=== PATIENT | male | born 1955 | race Caucasian/White ===

== ENCOUNTER 2016-09-25 13:23 | Inpatient (IN) | payer OTHER ==
--- NOTE | 2016-09-25 14:06 | PDOC ---
History of Present Illness - General Chief Complaint: Pain Stated Complaint: ABD PAIN History Source: Patient Exam Limitations: Language Barrier (used phone mortgage closing clerk ) - History of Present Illness Initial Comments: 09/25/16 16:03 This is a 61 yo M with PMH of IDDM x 8 yrs (on siding scale) and HLD, who presents due to recently elevated sugar and pain in feet. On friday patient measured his glucose to be 470, yestarday 370 and today 157 (his baseline). On fri he lost his appetite and developed mild nausea when trying to eat. He used 25 u x2 of insulin. He reports checking his sugar every day. He does not know his A1c and does not have a doctor. Today he developed pain in his feet and diffuse body aches. He has been constipated x 4d. He also complains of dysuria x 4 d. He had chills yesterday and has had a cough productive of yellow sputum x 2 d. He is normotensive and hemodynamically stable in ED but with rectal temp 100.9. He does not take any meds other than occasional insulin. Patient cant read. 09/25/16 16:10 Past History - Past Medical History Allergies/Adverse Reactions: Allergies Allergy/AdvReac Type Severity Reaction Status Date / Time No Known Allergies Allergy Verified 09/25/16 13:39 Home Medications: Ambulatory Orders Acyclovir [Zovirax -] 400 mg PO TID #42 capsule 07/03/14 Insulin Sliding Scale [Novolog Vial Sliding Scale -] 0 units SQ PRN 07/03/14 Prednisone [Deltasone -] 40 mg PO DAILY #14 tablet 07/03/14 Diabetes: Yes Hypercholesterolemia: Yes - Psycho/Social/Smoking Cessation Hx Anxiety: No Suicidal Ideation: No Smoking History: Never smoked Hx Alcohol Use: No Drug/Substance Use Hx: No Substance Use Type: None Review of Systems - Review of Systems Able to Perform ROS?: Yes Is the patient limited Citizen Of [place] proficient: Yes Constitutional: Yes: Weakness. No: Chills, Fever HEENTM: No: Nose Congestion, Throat Pain Respiratory: Yes: Cough, Shortness of Breath, Productive cough. No: Orthopnea, Stridor, Wheezing, Hemoptysis Cardiac (ROS): No: Chest Pain, Edema, Lightheadedness, Palpitations, Syncope ABD/GI: Yes: Constipated. No: Abdominal Distended, Diarrhea, Nausea, Rectal Bleeding, Vomiting, Abdominal cramping : Yes: Dysuria Musculoskeletal: Yes: Back Pain Integumentary: No: Bruising, Rash Neurological: No: Headache, Numbness, Paresthesia, Weakness Psychiatric: No: Anxiety, Depression Endocrine: No: Unexplained Weight Gain, Unexplained Weight Loss Hematologic/Lymphatic: No: Anemia, Blood Clots, Easy Bleeding, Easy Bruising *Physical Exam - Vital Signs Last Vital Signs Temp Pulse Resp BP Pulse Ox 97.7 F 120 H 20 128/73 96 09/25/16 13:34 09/25/16 13:34 09/25/16 13:34 09/25/16 13:34 09/25/16 13:34 - Physical Exam Comments: 09/25/16 16:13 GENERAL: NAD, AAOX3, CACHECTIC HEENT: NORMOCEPHALIC, ATRAUMATIC, PERRLA EOMI, NO SCLERAL ICTERUS, CONJUNCTIVA CLEAR PULM: RLL RALES GI: SOFT, NONTENDER, NONDISTENDED, NORMOACTIVE BOWEL SOUNDS, NO MASS NEURO: CRANIAL NERVES GROSSLY INTACT SKIN: NORMAL TURGOR EXTREMITIES: NO EDEMA, NO CALF TENDERNESS ED Treatment Course - LABORATORY CBC & Chemistry Diagram: 09/25/16 14:49 09/25/16 14:49 Medical Decision Making - Medical Decision Making 09/25/16 16:17 61 Yo M Insulin dependant diabetic who present with recent episode of hyperglycemia, fever and RLL ronchi wbc 32, alk phis 492, lft's wnl, creat wnl, slight hyponatremia/hypochloremia -CXR shows large masslike R suprahilar density with r sided effusion, possibly loculated -CT chest w contrast ordered 09/25/16 16:23 09/25/16 16:27 09/25/16 16:28 09/25/16 18:35 Cta chest shows large round walled off masses in R perihilar and lower lobe. Patient given empiric azithro, rocephin admitted to hospitalist *DC/Admit/Observation/Transfer Diagnosis at time of Disposition: Community acquired pneumonia - Discharge Dispostion Admit: Yes
[2016-09-25 14:57] LABS: MCH 25.6 pg (25.7-33.7); MCHC 32.6 g/dl (32.0-35.9); MEAN CELL VOLUME 78.6 fl (80-96); MEAN PLT VOLUME 7.3 fl (7.5-11.1); PLATELET COUNT 728 K/MM3 (134-434); RDW 13.2 % (11.9-15.9)
[2016-09-25 15:00] LABS: URINE APPEARANCE CLEAR; URINE BILIRUBIN NEGATIVE (NEGATIVE); URINE BLOOD NEGATIVE (NEGATIVE); URINE COLOR DKYELLOW; URINE GLUCOSE (UA) NEGATIVE (NEGATIVE); URINE KETONE 1+ (NEGATIVE); URINE LEUK ESTERASE NEGATIVE (NEGATIVE); URINE NITRITE NEGATIVE (NEGATIVE); URINE UROBILINOGEN NEGATIVE E.U./dl (0.2-1.0)
[2016-09-25 15:01] LABS: WHITE BLOOD COUNT 32.1 K/mm3 (4.0-10.0)
[2016-09-25 15:04] LABS: URINE PROTEIN 2+ (NEGATIVE)
[2016-09-25 15:06] LABS: URINE MUCUS FEW; URINE RBC 15 /hpf (0-3); URINE WBC 3 /hpf (3-5)
[2016-09-25 15:19] LABS: METAMYELOCYTE 1 % (0-2); PLATELET ESTIMATE INCREASED (NORMAL)
[2016-09-25 15:23] LABS: ALBUMIN 1.9 g/dl (3.4-5.0); ALK PHOS 492 U/L (45-117); ANION GAP 15 (8-16); BILIRUBIN,TOTAL 0.6 mg/dL (0.2-1.0); CALCIUM 8.4 mg/dL (8.5-10.1); CO2 25 mmol/L (21-32); COCKROFT - GAULT 88.93; CREATININE 0.7 mg/dL (0.7-1.3); GLUCOSE,RANDOM 96 mg/dL (74-106); SGOT/AST 37 U/L (15-37); SGPT/ALT 29 U/L (12-78); TOT PROT 7.4 g/dl (6.4-8.2)
--- NOTE | 2016-09-25 15:27 | PDOC ---
Attending Attestation - Resident Resident Name: Amber Lanier - ED Attending Attestation I have performed the following: I have examined & evaluated the patient, The case was reviewed & discussed with the resident, I agree w/resident's findings & plan - HPI HPI: 09/25/16 15:27 61y M hx of IDDM, presents with complaing of elevated blood sugar the past few days, running into the 3-400s. Pt notes that he has had decraesed appetite and some weight loss over the past few weeks. He endorses having ravi/cough for several days productive of some stputum but denies any fevers, although he was noted to have a low grade fever here in the ED. pt notes some body aches, The pt denies recent travel or known sick contacts, he lives with his kids. on exam camacho pt noted to have deminished sounds in the right base with some audible crackles. pts triage vitals noted for tachycardia to 120 pts cxr noted to have infiltrate, possible loculated effusion - awaiting CT chest pts albs noted for leukocytosis to 32. will start pt on abx and will likely admit for further management pending CT results 09/26/16 09:59 the pt was admitted to the hospitalist service last night for further management and evaluation by resident Yolande. - Physicial Exam PE: 09/26/16 09:59 see above - Medical Decision Making 09/26/16 09:59 see above
[2016-09-25] MEDS ORDERED: CEFTRIAXONE 1 GM in DEXTROSE 5%-WATER - 50 ML IVPB ONE (17:55)
[2016-09-25] MEDS ORDERED: AZITHROMYCIN IVPB 500 MG in DEXTROSE 5%-WATER - 250 ML IVPB ONE (17:55)
[2016-09-25] MEDS ORDERED: CEFTRIAXONE 50 ML ONE (18:11)
[2016-09-25] MEDS ORDERED: AZITHROMYCIN IVPB 250 ML IVPB ONE (18:11)
[2016-09-25] MEDS ORDERED: ACETAMINOPHEN 325 MG TABLET (FP) PO PRN (21:50)
--- NOTE | 2016-09-25 22:06 | HP ---
CHIEF COMPLAINT: cough PCP: None HISTORY OF PRESENT ILLNESS: This is a 61 year old male with a past medical history of IDDM and HLD who presented to the ED with c/o chills, productive cough x 3 weeks, night sweats, constipation x 4 days and dysuria x 4 days. Pt reports feeling a little better on exam. ER course was notable for: (1) WBC 32.1, Lactic acid 1.3 (2) ESR 110, CRP26.1 (3) Abnormal CT chest, see below Recent Travel: pt denies PAST MEDICAL HISTORY: IDDM- uses sliding scale insulin at home that he obtains from [place], does not require insulin every day HLD- denies home medications PAST SURGICAL HISTORY: pt denies Social History: Smoking: occasional cigarette Alcohol: pt deneis Drugs: pt denies Family History: mother alive and well father age 80, unknown multiple brothers and sisters all alive and well Allergies No Known Allergies Allergy (Verified 09/25/16 13:39) HOME MEDICATIONS: 3 Medication Instructions Recorded Insulin Sliding Scale [Novolog 0 units SQ PRN 07/03/14 Vial Sliding Scale -] REVIEW OF SYSTEMS CONSTITUTIONAL: Present: fever, chills, night sweats Absent: diaphoresis, generalized weakness, malaise, loss of appetite, weight change HEENT: Absent: rhinorrhea, nasal congestion, throat pain, throat swelling, difficulty swallowing, mouth swelling, ear pain, eye pain, visual changes CARDIOVASCULAR: Absent: chest pain, syncope, palpitations, irregular heart rate, lightheadedness , peripheral edema RESPIRATORY: Present: cough, shortness of breath Absent: dyspnea with exertion, orthopnea, wheezing, stridor, hemoptysis GASTROINTESTINAL: Present: constipation-reports stools are hard at times but last BM was yesterday. Absent: abdominal pain, abdominal distension, nausea, vomiting, diarrhea, melena , hematochezia GENITOURINARY: Present: dysuria Absent: frequency, urgency, hesitancy, hematuria, flank pain, genital pain MUSCULOSKELETAL: Absent: myalgia, arthralgia, joint swelling, back pain, neck pain SKIN: Absent: rash, itching, pallor HEMATOLOGIC/IMMUNOLOGIC: Absent: easy bleeding, easy bruising, lymphadenopathy, frequent infections ENDOCRINE: Absent: unexplained weight gain, unexplained weight loss, heat intolerance, cold intolerance NEUROLOGIC: Absent: headache, focal weakness or paresthesias, dizziness, unsteady gait, seizure, mental status changes, bladder or bowel incontinence PSYCHIATRIC: Absent: anxiety, depression, suicidal or homicidal ideation, hallucinations. PHYSICAL EXAMINATION Vital Signs - 24 hr 3 09/25/16 09/25/16 18:42 20:34 Temperature 98 F Pulse Rate [ 102 H 93 H Apical] Respiratory 16 18 Rate Blood Pressure 125/89 118/68 [Right] O2 Sat by Pulse 96 94 L Oximetry (%) GENERAL: Awake, alert, and fully oriented, in no acute distress. HEAD: Normal with no signs of trauma. EYES: Pupils equal, round and reactive to light, extraocular movements intact, sclera anicteric, conjunctiva clear. No lid lag. EARS, NOSE, THROAT: Ears normal, nares patent, oropharynx clear without exudates. Moist mucous membranes. NECK: Normal range of motion, supple without lymphadenopathy, JVD, or masses. LUNGS: No wheezes, and no rhonchi. No accessory muscle use. Bronchial breath sounds and crackles RLL HEART: Regular rate and rhythm, normal S1 and S2 without murmur, rub or gallop. ABDOMEN: Soft, nontender, not distended, normoactive bowel sounds, no guarding, no rebound, no masses. No hepatomegaly or splenomegaly. MUSCULOSKELETAL: Normal range of motion at all joints. No bony deformities or tenderness. No CVA tenderness. UPPER EXTREMITIES: 2+ pulses, warm, well-perfused. No cyanosis. No clubbing. No peripheral edema. LOWER EXTREMITIES: 2+ pulses, warm, well-perfused. No calf tenderness. No peripheral edema. NEUROLOGICAL: Cranial nerves II-XII intact. Normal speech. Normal gait. PSYCHIATRIC: Cooperative. Good eye contact. Appropriate mood and affect. SKIN: Warm, dry, normal turgor, no rashes or lesions noted, normal capillary refill. Imaging: CHEST X-RAY PORTABLE* Cough, shortness of breath. Single portable chest. The left lung is clear - no evidence of left pleural effusion, or pneumothorax. The cardiac silhouette is not enlarged. Unremarkable contour of the thoracic aorta. No evidence of widening of the superior mediastinum. Masslike opacity noted in the right suprahilar region. Moderate degree of right pleural effusion concerning for loculated effusion. Intact visualized osseous structures. CT chest recommended CT/CHEST CT WITH CONTRAST Evaluate for a right side mass. Please also evaluate right upper abdomen CT scan of the chest following intravenous contrast Coronal and sagittal reformatted images were submitted for evaluation. 70 cc of Omnipaque 350 was intravenously injected. Compared to prior chest x-ray dated 09/25/2016. No prior CT scan of the chest available comparison. Included lower neck appears unremarkable. The heart is within normal limits in size. There are a few paratracheal lymph nodes measuring up to 1.3 x 0.9 cm. Largest precarinal lymph node measures approximately 1.5 x 0.8 cm. A right hilar lymph node is present measuring approximately 1.8 x 2 cm. No gross left hilar lymph node is identified. There is a large likely loculated right pleural effusion. Consolidation/atelectasis in the right lower lobe. There are patchy pneumonic infiltrates in the right upper lobe, posteriorly laterally. Focal pleural-based masslike density in the right middle lobe, anteriorly measuring 3 x 1.1 cm in size and 13 Hounsfield units likely representing a small loculated pleural effusion, as well. The left lung is clear. There is no CT evidence of an acute process in included portion of the upper abdomen. Visualized osseous structures appear intact with mild degenerative changes and anterior spondylosis in the thoracic spine. No enlarged axillary lymph nodes are identified. Impression: Large loculated right pleural effusion with consolidation/ atelectasis in the right lower lobe as well as a patchy pneumonic infiltrates in the right upper lobe. There is also likely a small loculated pleural-based pleural effusion in the right middle lobe, anteriorly. Enlarged mediastinal and right hilar lymph nodes, as described above. Small pericardial effusion mainly along right lateral margin of the heart. Further evaluation and follow-up is recommended Case discussed with Dr. Cota, emergency room caring attending physician ASSESSMENT/PLAN: 61yM with PMH DM, HLD who presented with multiple complaints: dysuria, constipation, fever, chills, night sweats and cough x 3 weeks. He is being admitted for further diagnostic testing and treatment. Sepsis due to Community Acquired PNA r/o TB - cont ceftriaxone and zithromax - AFB x 3 and quantiferon gold ordered given RUL infiltrates and night sweats - NS @ 83cc/hr for now - airborne isolation - ID consult Pericardial effusion - as seen on CT, will obtain Echo DM - is on sliding scale insulin only at home, receives his insulin from [facility]. - cont FSBS and Sliding scale - A1C in am Dysuria - u/a not c/w UTI - feeling better in ED, cont to monitor HLD - denies home medications other than insulin - lipid panel in AM DVT PPX - heparin 5000u TID FEN - NS @ 83cc/hr - repeat labs in am - diabetic diet Dispo: Pt currently requires inpatient management of his emergent condition and expected LOS is greater than 2 MN. Visit type - Emergency Visit Emergency Visit: Yes ED Registration Date: 09/25/16 Care time: The patient presented to the Emergency Department on the above date and was hospitalized for further evaluation of their emergent condition. - New Patient This patient is new to me today: Yes Date on this admission: 09/25/16 - Critical Care Critical Care patient: No
[2016-09-25 22:10] LABS: HIV 1 & 2 AB NEGATIVE; HIV 1 AGp24 NEGATIVE
[2016-09-25] MEDS: INSULIN SLIDING SCALE (NOVOLOG) 1 VIAL SQ SCH (22:55)
[2016-09-25] MEDS: HEPARIN NA (PORCINE) 5,000 UNITS/ML 1ML VIAL SQ SCH (23:00)
[2016-09-25] MEDS: SODIUM CHLORIDE 1,000 ML IV SCH (23:05)
[2016-09-26 00:12] VITALS: BMI 20.5
[2016-09-26] MEDS: HEPARIN NA (PORCINE) 5,000 UNITS/ML 1ML VIAL SQ SCH (06:38)
[2016-09-26] MEDS: INSULIN SLIDING SCALE (NOVOLOG) 1 VIAL SQ SCH ×4 (06:39→21:35)
[2016-09-26 07:31] LABS: MCH 26.8 pg (25.7-33.7); MCHC 34.1 g/dl (32.0-35.9); MEAN CELL VOLUME 78.6 fl (80-96); MEAN PLT VOLUME 6.8 fl (7.5-11.1); PLATELET COUNT 649 K/MM3 (134-434); RDW 13.2 % (11.9-15.9)
[2016-09-26 07:55] LABS: CALCIUM 8.1 mg/dL (8.5-10.1); COCKROFT - GAULT 86.97; CREATININE 0.7 mg/dL (0.7-1.3)
--- NOTE | 2016-09-26 08:16 | PN ---
Progress Note, Physician Chief Complaint: ID This 61 year old [place] man is admitted with a 2 month history of pleuritic chest pain nonproductive couph fevers and night sweats. He has been losing weight and has poor appetite. He is a [place] immigrant who came here permanently in 2006. 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 His is back in [place]. He rarely smoked in the past and does not drink or use drugs. His HIV test is negative now. He has no history of PPD testing or does not remember. He is an insulin dependent diabetic but has sporadic medical follow up. He has HPTN but takes no meds for some time. CT scan here with infiltrate and loculated effusion. He has not been on antibiotics at all. - Current Medication List Current Medications: Active Medications Acetaminophen (Tylenol -) 650 mg PO Q4H PRN PRN Reason: FEVER OR PAIN Heparin Sodium (Porcine) (Heparin -) 5,000 unit SQ TID [facility] Last Admin: 09/26/16 06:38 Dose: 5,000 unit Sodium Chloride (Normal Saline -) 1,000 mls @ 83 mls/hr IV ASDIR [facility] Last Admin: 09/25/16 23:05 Dose: 83 mls/hr Azithromycin (Zithromax 500mg Ivpb (Pre-Docked)) 250 mls @ 250 mls/hr IVPB DAILY [facility] Ceftriaxone Sodium (Rocephin 1gm Ivpb (Pre-Docked)) 50 mls @ 100 mls/hr IVPB DAILY [facility] Insulin Aspart (Novolog Vial Sliding Scale -) 0 vial SQ ACHS BUTCH PRN Reason: Protocol Last Admin: 09/26/16 06:39 Dose: Not Given - Objective Vital Signs: Vital Signs Temperature 98.5 F 09/26/16 06:30 Pulse Rate 103 H 09/26/16 06:30 Respiratory Rate 20 09/26/16 06:30 Blood Pressure 121/69 09/26/16 06:30 O2 Sat by Pulse Oximetry (%) 94 L 09/25/16 20:34 Constitutional: Yes: Diaphoresis Eyes: Yes: WNL, Conjunctiva Clear HENT: Yes: Other (Dentition necrotic teeth) Neck: Yes: WNL, Supple. No: Lymphadenopathy Cardiovascular: Yes: Regular Rate and Rhythm, S1, S2. No: Murmur Respiratory: Yes: WNL, Regular, CTA Bilaterally, Diminished, Rales Gastrointestinal: Yes: Soft, Tenderness, Other (MIld RUQ tenderness) Extremities: No: Cold, Cool, Cyanosis Edema: No Labs: CBC, BMP 09/26/16 06:45 09/26/16 06:45 Assessment/Plan Microbiology Laboratory Tests 09/25/16 09/25/16 09/25/16 14:49 14:49 16:30 WBC 32.1 H* Hgb 12.1 Hct 37.2 Plt Count 728 H MPV 7.3 L Neutrophils % 90.0 H Monocytes % 4.0 ESR BUN 13 Creat Clearance w eGFR > 60 Total Bilirubin 0.6 AST 37 ALT 29 C-Reactive Protein 26.1 H Total Protein 7.4 Albumin 1.9 L HIV 1&2 Antibody Screen HIV P24 Antigen 09/25/16 09/25/16 16:30 20:31 WBC Hgb Hct Plt Count MPV Neutrophils % Monocytes % ESR 110 H BUN Creat Clearance w eGFR Total Bilirubin AST ALT C-Reactive Protein Total Protein Albumin HIV 1&2 Antibody Screen Negative HIV P24 Antigen Negative Assessment Most likely this 61 year old diabetic male has been ill for 3 months. He has a loculated effusion with pneumonia and the possibility of empyema is high. Especially note leukocytosis and thrombocytosis with acute phase reactants. Bacteria but tuberculosis and histoplasmosis has to be considered. His teeth are in poor repair and that raises ? anaerobic infection though no foul breath noted. Plan Mainly he needs surgical drainage either by IR or thoracotomy with appropriate cultures c/s AFB fungus Vanco Ertepenem Quant gold Isolation AFB Histo antigen Thoracic surgery evaluation IR consideration for empyema LGA Strep pneumo Ag Suzy SHEFFIELD
--- NOTE | 2016-09-26 08:34 | PN ---
Progress Note, Physician - Current Medication List Current Medications: Active Medications Acetaminophen (Tylenol -) 650 mg PO Q4H PRN PRN Reason: FEVER OR PAIN Heparin Sodium (Porcine) (Heparin -) 5,000 unit SQ TID [facility] Last Admin: 09/26/16 06:38 Dose: 5,000 unit Sodium Chloride (Normal Saline -) 1,000 mls @ 83 mls/hr IV ASDIR [facility] Last Admin: 09/25/16 23:05 Dose: 83 mls/hr Vancomycin HCl (Vancomycin (Pre-Docked)) 250 mls @ 166.667 mls/hr IVPB DAILY [facility] PRN Reason: Protocol Ertapenem 1 gm/ Sodium (Chloride) 50 mls @ 100 mls/hr IVPB DAILY BUTCH PRN Reason: Protocol Insulin Aspart (Novolog Vial Sliding Scale -) 0 vial SQ ACHS BUTCH PRN Reason: Protocol Last Admin: 09/26/16 06:39 Dose: Not Given - Objective Vital Signs: Vital Signs Temperature 98.5 F 09/26/16 06:30 Pulse Rate 103 H 09/26/16 06:30 Respiratory Rate 20 09/26/16 06:30 Blood Pressure 121/69 09/26/16 06:30 O2 Sat by Pulse Oximetry (%) 94 L 09/25/16 20:34 Labs: CBC, BMP 09/26/16 06:45 09/26/16 06:45 Problem List - Problems (1) Empyema Code(s): J86.9 - PYOTHORAX WITHOUT FISTULA (2) Pneumonia Code(s): J18.9 - PNEUMONIA, UNSPECIFIED ORGANISM
[2016-09-26 09:25] LABS: INR 1.48 (0.82-1.09); PROTHROMBIN TIME (PATIENT) 16.4 SEC (9.98-11.88)
[2016-09-26 09:35] LABS: PLATELET ESTIMATE INCREASED (NORMAL)
[2016-09-26] MEDS ORDERED: CEFTRIAXONE 50 ML IVPB SCH (10:00)
[2016-09-26] MEDS ORDERED: AZITHROMYCIN IVPB 250 ML IVPB SCH (10:00)
[2016-09-26] MEDS: ERTAPENEM SODIUM 1 GM in SODIUM CHLORIDE 50 ML IVPB SCH (10:33)
--- NOTE | 2016-09-26 10:35 | CON.PULM ---
Consult Consult Specialty:: PULMONARY Referred by:: ISSAC Bishop Reason for Consultation:: pleural effusion/pneumonia - History of Present Illness Chief Complaint: hyperglycemia History of Present Illness: 61yo male from [place] with h/o DM, hyperlipidemia who presented with hyperglycemia and foot pain. Reports subjective fevers measured 100.9 in the ER. Mild cough productive of yellow sputum. He does report some chest discomfort on right side worse with deep inspiration. Noted to have loculated right sided effusions on CXR, chest CT. 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 - History Source History Provided By: Patient, Medical Record Limitations to Obtaining History: Language Barrier - Past Medical History Cardio/Vascular: Yes: Hyperlipdemia Endocrine: Yes: Diabetes Mellitus - Alcohol/Substance Use Hx Alcohol Use: No - Smoking History Smoking history: Never smoked Home Medications - Allergies Allergies/Adverse Reactions: Allergies Allergy/AdvReac Type Severity Reaction Status Date / Time No Known Allergies Allergy Verified 09/25/16 13:39 - Home Medications Home Medications: Ambulatory Orders Insulin Sliding Scale [Novolog Vial Sliding Scale -] 0 units SQ PRN 07/03/14 Review of Systems - Review of Systems Constitutional: reports: Fever, Night Sweats Eyes: denies: Recent Change in Vision HENT: denies: Nasal Congestion, Throat Pain Neck: denies: Stiffness, Tenderness Cardiovascular: reports: Chest Pain. denies: Shortness of Breath Respiratory: reports: Cough. denies: SOB, SOB on Exertion Gastrointestinal: denies: Abdominal Pain, Nausea, Vomiting Genitourinary: denies: Dysuria, Hematuria Neurological: denies: Dizziness, Headache Endocrine: reports: Unexplained Weight Loss Physical Exam Vital Sings: Vital Signs Temperature 98.5 F 09/26/16 06:30 Pulse Rate 103 H 09/26/16 06:30 Respiratory Rate 20 09/26/16 06:30 Blood Pressure 121/69 09/26/16 06:30 O2 Sat by Pulse Oximetry (%) 94 L 09/25/16 20:34 Constitutional: Yes: Calm, Diaphoresis Eyes: Yes: Conjunctiva Clear, EOM Intact HENT: Yes: Atraumatic, Normocephalic Neck: Yes: Supple, Trachea Midline Cardiovascular: Yes: Regular Rate and Rhythm Respiratory: Yes: Diminished (right base), Rales (right base) ...Clubbing: No Gastrointestinal: Yes: Normal Bowel Sounds, Soft. No: Tenderness Edema: No Labs: CBC, BMP 09/26/16 06:45 09/26/16 06:45 Imaging - Results Chest X-ray: Report Reviewed, Image Reviewed Cat Scan: Report Reviewed, Image Reviewed (loculated right effusions, right infiltrate) Problem List - Problems (1) Pneumonia Code(s): J18.9 - PNEUMONIA, UNSPECIFIED ORGANISM (2) Pleural effusion Code(s): J90 - PLEURAL EFFUSION, NOT ELSEWHERE CLASSIFIED (3) Diabetes Code(s): E11.9 - TYPE 2 DIABETES MELLITUS WITHOUT COMPLICATIONS Assessment/Plan Pneumonia Loculated Pleural Effusions r/o TB r/o Empyema DM - agree with antibiotics per ID - f/u cultures - PPD, quantiferon gold, sputum for AFB - agree with ultrasound guided diagnostic thoracentesis but will likely need R VATS - O2 as needed - DVT prophylaxis Thank you for this consult Efren Elliott MD
--- NOTE | 2016-09-26 11:31 | PN ---
Physical Exam: SUBJECTIVE: Patient seen and examined at bedside. OBJECTIVE: Vital Signs Period Temp Pulse Resp BP Sys/Basurto Pulse Ox Last 24 Hr 98 F-98.8 F 93-103 16-20 111-125/68-89 94-96 GENERAL: The patient is awake, alert, and fully oriented, in no acute distress. Thin. HEAD: Normal with no signs of trauma. EYES: PERRL, extraocular movements intact, sclera anicteric, conjunctiva clear. No ptosis. LUNGS: Diminished sounds on right particularly right base; HEART: Regular rate and rhythm, S1, S2 without murmur, rub or gallop. ABDOMEN: Soft, nontender, nondistended, normoactive bowel sounds, no guarding, no rebound, no hepatosplenomegaly, no masses. EXTREMITIES: 2+ pulses, warm, well-perfused, no edema. NEUROLOGICAL: Cranial nerves II through XII grossly intact. Normal speech, gait not observed. Laboratory Results - last 24 hr 09/25/16 09/26/16 09/26/16 20:31 01:40 05:54 WBC RBC Hgb Hct MCV MCHC RDW Plt Count MPV Neutrophils % Lymphocytes % Monocytes % Differential Comment Platelet Estimate INR Sodium Potassium Chloride Carbon Dioxide Anion Gap BUN Creatinine POC Glucometer 170 91 Random Glucose Hemoglobin A1c % Calcium Magnesium Triglycerides Cholesterol Total LDL Cholesterol HDL Cholesterol HIV 1&2 Antibody Screen Negative HIV P24 Antigen Negative 09/26/16 09/26/16 09/26/16 06:45 06:45 06:45 WBC 26.0 H RBC 4.27 Hgb 11.4 L Hct 33.5 L MCV 78.6 L MCHC 34.1 RDW 13.2 Plt Count 649 H MPV 6.8 L Neutrophils % 94.0 H Lymphocytes % 5.0 L D Monocytes % 1.0 L Differential Comment Manual diff done Platelet Estimate Increased INR Sodium 132 L Potassium 3.7 Chloride 95 L Carbon Dioxide 27 Anion Gap 10 BUN 14 Creatinine 0.7 POC Glucometer Random Glucose 81 Hemoglobin A1c % 11.4 H Calcium 8.1 L Magnesium 2.0 Triglycerides 77 Cholesterol 96 Total LDL Cholesterol 67 HDL Cholesterol 24 L HIV 1&2 Antibody Screen HIV P24 Antigen 09/26/16 09/26/16 06:45 08:40 WBC RBC Hgb Hct MCV MCHC RDW Plt Count MPV Neutrophils % Lymphocytes % Monocytes % Differential Comment Platelet Estimate INR 1.48 H Sodium Potassium Chloride Carbon Dioxide Anion Gap BUN Creatinine POC Glucometer Random Glucose Hemoglobin A1c % Calcium Magnesium Triglycerides Cancelled Cholesterol Cancelled Total LDL Cholesterol Cancelled HDL Cholesterol Cancelled HIV 1&2 Antibody Screen HIV P24 Antigen Active Medications Generic Name Dose Route Start Last Admin Trade Name Najma PRN Reason Stop Dose Admin Acetaminophen 650 mg 09/25/16 21:50 Tylenol - PO Q4H PRN FEVER OR PAIN Sodium Chloride 1,000 mls @ 83 mls/hr 09/25/16 22:00 09/25/16 23:05 Normal Saline - IV 83 mls/hr ASDIR BUTCH Administration Vancomycin HCl 250 mls @ 166.667 mls/hr 09/26/16 10:00 Vancomycin (Pre-Docked) IVPB DAILY BUTCH Protocol Ertapenem 1 gm/ Sodium 50 mls @ 100 mls/hr 09/26/16 10:00 09/26/16 10:33 Chloride IVPB 100 mls/hr DAILY BUTCH Administration Protocol Insulin Aspart 0 vial 09/25/16 22:00 09/26/16 06:39 Novolog Vial Sliding Scale - SQ Not Given ACHS BUTCH Protocol Imaging 09/25 CXR: masslike opacity right suprahilar region; moderate right pleural effusion concerning for loculated effusion 09/25 CT chest: large loculated right pleural effusion with consolidation/ atelectasis in RLL; patchy infiltrate RUL; small loculated pleural effusion RML ; enlarged mediastinal and right hilar lymph nodes; small pericardial effusion ASSESSMENT/PLAN 61 year-old man from [place] since 2006 (no recent travel) with a PMH of HLD and IDDM, presents with subjective fever, cough, and night sweats x several weeks, weight loss x several months. Admitted for sepsis secondary to CAP. Sepsis secondary to community-acquired pneumonia --febrile to 100.9, tachycardic to 109, WBC 31k; hemodynamically stable --loculated pleural effusions --seen by ID, empiric Vanc (day #1) and Ertapenem (day #1) --cultures, TB Gold, histoplasma Ag-urine, AFB x 3 pending --CTAP pending to r/o subdiaphragmatic process or liver abscesses --CT consult pending for Dr. Hsieh for possible chest tube v. VATS Small pericardial effusion --Echo done, pending read --cardiology consult requested Dr. Beasley NIDDM --Novolog sliding scale coverage F/E/N Fluids: NS @ 150mL/hr Electrolytes: replete as indicated Nutrition: diabetic diet DVT prophylaxis: hold chemical prophylaxis due to possible surgical interventions; SCDs Dispo: continues to require inpatient care. Full Code. Visit type - Emergency Visit Emergency Visit: Yes ED Registration Date: 09/25/16 Care time: The patient presented to the Emergency Department on the above date and was hospitalized for further evaluation of their emergent condition. - New Patient This patient is new to me today: Yes Date on this admission: 09/26/16 - Critical Care Critical Care patient: No
[2016-09-26] MEDS: VANCOMYCIN 1 GRAM (PRE-DOCKED) 250 ML IVPB SCH (11:41)
[2016-09-26] MEDS: SODIUM CHLORIDE 1,000 ML IV SCH (11:46)
[2016-09-26 13:32] LABS: PLEURAL FLUID SOURCE PLEURAL FLUID
[2016-09-26 13:34] LABS: PLEURAL FLUID APPEARANCE MILKY
[2016-09-26 13:40] LABS: TOTAL PROTEIN,PLEURAL FLUID 2.722
[2016-09-26 14:00] LABS: GLUCOSE,PLEURAL FLUID 8
[2016-09-26 14:01] LABS: CHLORIDE PLEURAL FLUID 88
[2016-09-26 15:23] LABS: PLEURAL FLUID LYMPHOCYTES 1 %; PLEURAL FLUID NEUTROPHIL 99 %
--- NOTE | 2016-09-26 15:49 | CONSULT ---
Consult - text type - Consultation Consultation Note: Thoracic Consultation: 61M with DM, non-smoker, with 2 month h/o cough, weight loss (unclear how much but clothes looser), and more recent fevers and hyperglycemia. 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 CT suggested empyema. Drain done today suggest empyema but not high PMNs, despite appearing as pus. Recommend: CT to suction for now, await microbiology as TB in differential, daily CXR, if not TB, will do VATS decort on Friday (if ID and Pulm agree not TB ). I have spent ~40 minutes on this consultation including history, physical, review of images, with over half of this time in counseling with patient (in [place]) and coordination of care with Dr. Elliott and Dr. Galan.
--- NOTE | 2016-09-26 16:29 | CON.CARD ---
Consult Consult Specialty:: cardiology Referred by:: cade Reason for Consultation:: pericardial effusion - History of Present Illness Chief Complaint: Fever History of Present Illness: 61yo male from [place] with h/o DM, hyperlipidemia who presented with hyperglycemia and foot pain. Reports subjective fevers measured 100.9 in the ER. Mild cough productive of yellow sputum. Noted to have loculated right sided effusions on CXR, chest CT with complaint of some right sided chest pain with cough. He was a former occasional smoker CT scan with loculated effusion and small pericardial effusion. Elevated WBC . - History Source History Provided By: Patient, Medical Record - Past Medical History Cardio/Vascular: Yes: Hyperlipdemia Endocrine: Yes: Diabetes Mellitus - Alcohol/Substance Use Hx Alcohol Use: No - Smoking History Smoking history: Never smoked Home Medications - Allergies Allergies/Adverse Reactions: Allergies Allergy/AdvReac Type Severity Reaction Status Date / Time No Known Allergies Allergy Verified 09/25/16 13:39 - Home Medications Home Medications: Ambulatory Orders Insulin Sliding Scale [Novolog Vial Sliding Scale -] 0 units SQ PRN 07/03/14 Vital Signs: Vital Signs Temperature 98.2 F 09/26/16 14:57 Pulse Rate 94 H 09/26/16 14:57 Respiratory Rate 16 09/26/16 14:57 Blood Pressure 112/66 09/26/16 14:57 O2 Sat by Pulse Oximetry (%) 95 09/26/16 09:00 Constitutional: Yes: No Distress Respiratory: Yes: Diminished (r base) Gastrointestinal: Yes: Normal Bowel Sounds, Soft Cardiovascular: Yes: Regular Rate and Rhythm JVD: No Carotid Bruit: No Heart Sounds: Yes: S1, S2 Murmur: No: Systolic Murmur Edema: No - Other Data Labs, Other Data: CBC, BMP 09/26/16 06:45 09/26/16 06:45 INR, PTT INR 1.48 (0.82-1.09) H 09/26/16 08:40 Imaging - Results Chest X-ray: Report Reviewed Cat Scan: Report Reviewed Assessment/Plan 61yo male from [place] with h/o DM, hyperlipidemia who presented with hyperglycemia and foot pain. Reports subjective fevers measured 100.9 in the ER. Mild cough productive of yellow sputum. Noted to have loculated right sided effusions on CXR, chest CT with complaint of some right sided chest pain with cough. He was a former occasional smoker CT scan with loculated effusion and small pericardial effusion. Elevated WBC 1) Pericardial effusion -Echocardiogram today with no signs of pericardial effusion and otherwise unremarkable. No signs of jvd and unremarkable cardiac physical exam. Normal blood pressure with no hypotension -Treat underlying pulmonary and infectious issues and r/o TB Please call back if any other questions or clinical changes.
[2016-09-26] MEDS ORDERED: INSULIN (NOVOLOG) ASPART 100 UNITS/ML 10ML VIAL ONE (18:13)
[2016-09-27] MEDS: SODIUM CHLORIDE 1,000 ML IV SCH ×2 (04:00→17:37)
[2016-09-27] MEDS: INSULIN SLIDING SCALE (NOVOLOG) 1 VIAL SQ SCH ×4 (06:25→21:13)
--- NOTE | 2016-09-27 09:47 | PN ---
Progress Note (short form) - Note Progress Note: Pt with complaints of pain at right pigtail catheter site. No SOB. Vital Signs Period Temp Pulse Resp BP Sys/Basurto Pulse Ox Last 24 Hr 97.8 F-98.8 F 83-97 16-22 102-118/66-74 96 PE: GEN: Appears comfortable Right chest: No air leak noted. outpt level at 400 with think purulent drainage. CBC, BMP 09/26/16 06:45 09/26/16 06:45 A/p: 61 yo male with improved fevers and WBC s/p Right pigtail catheter for drainage of effusion. Appears purulent. Ordered daily portable CXR Continue CT to [facility] Follow CBC(ordered) for today and 09/28 Iv abx Vanco/Ertapenem as per ID Awaiting micro results for AFB/gram stain/fungal For possible OR/Vats on Friday pending TB results
--- NOTE | 2016-09-27 10:50 | PN ---
Progress Note (short form) - Note Progress Note: NAD alert chest tube in place with purulent drainage Vital Signs Period Temp Pulse Resp BP Sys/Basurto Pulse Ox Last 24 Hr 97.8 F-98.8 F 83-97 16-22 102-118/66-74 96 cor-rrr lungs decreased bs on left +left chest tube abd soft, ext no edema CBC, BMP 09/26/16 06:45 09/26/16 06:45 pleural fluid gram stain with many pmns and GPC chains cultures pending Microbiology 09/25/16 15:15 Urine - Urine Clean Catch Urine Culture - Final 09/26/16 06:45 Blood - Peripheral Venous TB Test (QFT) ([facility]) - Preliminary 09/26/16 12:30 Pleural Fluid AFB Smear Concentration - Preliminary 09/26/16 12:30 Pleural Fluid Mycobacterial Culture - Preliminary 09/26/16 10:47 Sputum - Expectorated AFB Smear Concentration - Preliminary 09/26/16 10:47 Sputum - Expectorated Mycobacterial Culture - Preliminary 09/25/16 16:35 Blood - Peripheral Venous Blood Culture - Preliminary NO GROWTH OBTAINED AFTER 24 HOURS, INCUBATION TO CONTINUE FOR 4 DAYS. 09/25/16 16:35 Blood - Peripheral Venous Blood Culture - Preliminary NO GROWTH OBTAINED AFTER 24 HOURS, INCUBATION TO CONTINUE FOR 4 DAYS. 09/26/16 12:30 Pleural Fluid Gram Stain - Final 09/26/16 12:30 Pleural Fluid LINDA Preparation - Preliminary 09/26/16 12:30 Pleural Fluid Fungal Culture - Preliminary HIV negative Current Medications Acetaminophen (Tylenol -) 650 mg PO Q4H PRN PRN Reason: FEVER OR PAIN Sodium Chloride (Normal Saline -) 1,000 mls @ 83 mls/hr IV ASDIR BUTCH Last Admin: 09/27/16 04:00 Dose: 83 mls/hr Vancomycin HCl (Vancomycin (Pre-Docked)) 250 mls @ 166.667 mls/hr IVPB DAILY BUTCH PRN Reason: Protocol Last Admin: 09/26/16 11:41 Dose: 166.667 mls/hr Ertapenem 1 gm/ Sodium (Chloride) 50 mls @ 100 mls/hr IVPB DAILY BUTCH PRN Reason: Protocol Last Admin: 09/26/16 10:33 Dose: 100 mls/hr Insulin Aspart (Novolog Vial Sliding Scale -) 0 vial SQ ACHS BUTCH PRN Reason: Protocol Last Admin: 09/27/16 06:25 Dose: Not Given a/p empyema- awaiting sputum afb and quant gold continue vanco/ertapenem day #2 f/u cultures History of diabetes
[2016-09-27 10:52] LABS: BASOPHIL 0.8 % (0-2.0); EOSINOPHIL 0.3 % (0-4.5); MCH 26.2 pg (25.7-33.7); MCHC 33.4 g/dl (32.0-35.9); MEAN CELL VOLUME 78.4 fl (80-96); MEAN PLT VOLUME 6.5 fl (7.5-11.1); NEUTROPHILS 86.6 % (42.8-82.8); PLATELET COUNT 646 K/MM3 (134-434); RDW 13.1 % (11.9-15.9); WHITE BLOOD COUNT 17.5 K/mm3 (4.0-10.0)
[2016-09-27] MEDS: ERTAPENEM SODIUM 1 GM in SODIUM CHLORIDE 50 ML IVPB SCH (11:30)
[2016-09-27] MEDS: VANCOMYCIN 1 GRAM (PRE-DOCKED) 250 ML IVPB SCH (11:30)
--- NOTE | 2016-09-27 12:06 | PN ---
Physical Exam: SUBJECTIVE: Patient seen and examined OBJECTIVE: Vital Signs Period Temp Pulse Resp BP Sys/Basurto Pulse Ox Last 24 Hr 97.8 F-98.8 F 83-97 16-22 102-118/66-74 96 GENERAL: The patient is awake, alert, and fully oriented, in no acute distress. Thin. HEAD: Normal with no signs of trauma. EYES: PERRL, extraocular movements intact, sclera anicteric, conjunctiva clear. No ptosis. LUNGS: Diminished sounds on right particularly right base; HEART: Regular rate and rhythm, S1, S2 without murmur, rub or gallop. ABDOMEN: Soft, nontender, nondistended, normoactive bowel sounds, no guarding, no rebound, no hepatosplenomegaly, no masses. EXTREMITIES: 2+ pulses, warm, well-perfused, no edema. NEUROLOGICAL: Cranial nerves II through XII grossly intact. Normal speech, gait not observed. Laboratory Results - last 24 hr 09/26/16 09/26/16 09/26/16 12:30 18:09 21:29 WBC RBC Hgb Hct MCV MCHC RDW Plt Count MPV Neutrophils % Lymphocytes % Monocytes % Eosinophils % Basophils % POC Glucometer 162 105 Pleural Fluid Source Pleural fluid Pleural Color White Pleural Appearance Milky Pleural WBC 310,507 Pleural RBC 0 Pleural Neutrophils 99 Pleural Lymphocytes 1 Pleural Chloride 88 Pleural Total Protein 2.722 Pleural Albumin 1 Pleural LDH > 4000 Pleural Glucose 8 Pleural Amylase 4.713 Pleural Cholesterol < 50 Pleural Triglycerides 30 09/27/16 09/27/16 06:21 10:40 WBC 17.5 H D RBC 4.37 Hgb 11.5 L Hct 34.3 L MCV 78.4 L MCHC 33.4 RDW 13.1 Plt Count 646 H MPV 6.5 L Neutrophils % 86.6 H Lymphocytes % 7.8 L D Monocytes % 4.5 D Eosinophils % 0.3 Basophils % 0.8 POC Glucometer 131 Pleural Fluid Source Pleural Color Pleural Appearance Pleural WBC Pleural RBC Pleural Neutrophils Pleural Lymphocytes Pleural Chloride Pleural Total Protein Pleural Albumin Pleural LDH Pleural Glucose Pleural Amylase Pleural Cholesterol Pleural Triglycerides Active Medications Generic Name Dose Route Start Last Admin Trade Name Freq PRN Reason Stop Dose Admin Acetaminophen 650 mg 09/25/16 21:50 Tylenol - PO Q4H PRN FEVER OR PAIN Sodium Chloride 1,000 mls @ 83 mls/hr 09/25/16 22:00 09/27/16 04:00 Normal Saline - IV 83 mls/hr ASDIR BUTCH Administration Vancomycin HCl 250 mls @ 166.667 mls/hr 09/26/16 10:00 09/27/16 11:30 Vancomycin (Pre-Docked) IVPB 166.667 mls/hr DAILY BUTCH Administration Protocol Ertapenem 1 gm/ Sodium 50 mls @ 100 mls/hr 09/26/16 10:00 09/27/16 11:30 Chloride IVPB 100 mls/hr DAILY BUTCH Administration Protocol Insulin Aspart 0 vial 09/25/16 22:00 09/27/16 12:04 Novolog Vial Sliding Scale - SQ 2 units ACHS BUTCH Administration Protocol Imaging 09/25 CXR: masslike opacity right suprahilar region; moderate right pleural effusion concerning for loculated effusion 09/25 CT chest: large loculated right pleural effusion with consolidation/ atelectasis in RLL; patchy infiltrate RUL; small loculated pleural effusion RML ; enlarged mediastinal and right hilar lymph nodes; small pericardial effusion 09/26 CTAP: loculated pleural effusion with air bubbles may represent empyema; additional loculation anteriorly; consolidation/atelectasis of RLL; left lobe of liver with small hypodensity, needs US; no acute pathology in abdomen ASSESSMENT/PLAN 61 year-old man from [place] since 2006 (no recent travel) with a PMH of HLD and IDDM, presents with subjective fever, cough, and night sweats x several weeks, weight loss x several months. Admitted for sepsis secondary to CAP. Sepsis secondary to community-acquired pneumonia Empyema s/p right chest tube --febrile to 100.2, hemodynamically stable --chest tube draining pus --pleural fluid growing strep species --seen by ID, continue Vanc (day #2) and Ertapenem (day #2) --cultures, TB Gold, histoplasma Ag-urine --AFB x 2 negative, third pending --HIV negative --likely will go for VATS on Friday; will need CT chest non-contrast on Friday Small pericardial effusion ruled out --CT was suggestive of pericardial effusion but echo has no signs of pericardial effusion and is otherwise unremarkable --seen and evaluated by cardiology, no further workup NIDDM --Novolog sliding scale coverage F/E/N Fluids: NS @ 83mL/hr Electrolytes: replete as indicated Nutrition: diabetic diet DVT prophylaxis: hold chemical prophylaxis due to scheduled surgery; SCDs Dispo: continues to require inpatient care. Full Code. Visit type - Emergency Visit Emergency Visit: Yes ED Registration Date: 09/25/16 Care time: The patient presented to the Emergency Department on the above date and was hospitalized for further evaluation of their emergent condition. - New Patient This patient is new to me today: No - Critical Care Critical Care patient: No
--- NOTE | 2016-09-27 13:06 | PN ---
Progress Note (short form) - Note Progress Note: Thoracic: S/p drainage. Likely will need vats on Friday. Will order CT scan of chest non-contrast for Friday as preoperative exam. Please medically optimize. Patient aware of possibility of surgery, appears based on gram stain that this is not TB.
--- NOTE | 2016-09-27 15:26 | PATH ---
Cytology Non-Gynecological Report Patient Name: LEONARDO BREEN Med. Rec. #: [id number] /Age/Gender: 1955 (Age: 61) / M Account: [id number] Location: [facility] MED/SURG Taken: 09/26/2016 Received: 09/27/2016 Reported: 09/27/2016 Physicians: Erika Ibarra ACNP Daniel Nicastri, M.D. Specimen(s) Received PLEURAL FLUID Clinical History Pleural effusion Final Diagnosis PLEURAL FLUID, THORACENTESIS: SATISFACTORY FOR EVALUATION. NO MALIGNANT CELLS IDENTIFIED. MARKED ACUTE INFLAMMATION WITH NUMEROUS NEUTROPHILS AND BACTERIAL ORGANISMS. Comment: Correlations with microbiology and imaging studies are suggested. Electronically Signed Zackary Payton M.D. Gross Description Received is 50 cc of bloody fluid in 50% alcohol. One cytofunnel slide and one cell block are made.
[2016-09-28] MEDS: SODIUM CHLORIDE 1,000 ML IV SCH ×3 (06:15→21:30)
[2016-09-28] MEDS: INSULIN SLIDING SCALE (NOVOLOG) 1 VIAL SQ SCH ×4 (06:16→21:30)
[2016-09-28 07:08] LABS: BASOPHIL 0.5 % (0-2.0); EOSINOPHIL 0.9 % (0-4.5); MCH 26.7 pg (25.7-33.7); MCHC 33.8 g/dl (32.0-35.9); NEUTROPHILS 80.8 % (42.8-82.8); PLATELET COUNT 683 K/MM3 (134-434); RDW 13.3 % (11.9-15.9); WHITE BLOOD COUNT 12.3 K/mm3 (4.0-10.0)
[2016-09-28] MEDS ORDERED: PT OWN MED DRAWER 7, Y5N ONE (08:35)
[2016-09-28 09:17] LABS: ALBUMIN 1.6 g/dl (3.4-5.0); BILIRUBIN,DIRECT 0.2 mg/dL (0.0-0.2); BILIRUBIN,TOTAL 0.4 mg/dL (0.2-1.0); CALCIUM 8.1 mg/dL (8.5-10.1); COCKROFT - GAULT 121.76; CREATININE 0.5 mg/dL (0.7-1.3); TOT PROT 6.2 g/dl (6.4-8.2)
[2016-09-28] MEDS: MULTIVITAMINS (DAILY MVI) TABLET (FP) PO SCH (09:57)
[2016-09-28] MEDS: VANCOMYCIN 1 GRAM (PRE-DOCKED) 250 ML IVPB SCH (09:57)
[2016-09-28] MEDS: ERTAPENEM SODIUM 1 GM in SODIUM CHLORIDE 50 ML IVPB SCH (11:50)
[2016-09-28] MEDS ORDERED: INSULIN (NOVOLOG) ASPART 100 UNITS/ML 10ML VIAL ONE (11:55)
--- NOTE | 2016-09-28 17:29 | PN ---
Physical Exam: SUBJECTIVE: Patient seen and examined at bedside. OBJECTIVE: Vital Signs Period Temp Pulse Resp BP Sys/Basurto Pulse Ox Last 24 Hr 98.2 F-98.4 F 82-90 18-20 106-114/63-69 97-97 GENERAL: The patient is awake, alert, and fully oriented, in no acute distress. Thin. HEAD: Normal with no signs of trauma. EYES: PERRL, extraocular movements intact, sclera anicteric, conjunctiva clear. No ptosis. LUNGS: Diminished sounds on right particularly right base; HEART: Regular rate and rhythm, S1, S2 without murmur, rub or gallop. ABDOMEN: Soft, nontender, nondistended, normoactive bowel sounds, no guarding, no rebound, no hepatosplenomegaly, no masses. EXTREMITIES: 2+ pulses, warm, well-perfused, no edema. NEUROLOGICAL: Cranial nerves II through XII grossly intact. Normal speech, gait not observed. Laboratory Results - last 24 hr 09/27/16 09/27/16 09/28/16 17:33 20:43 06:00 WBC RBC Hgb Hct MCV MCHC RDW Plt Count MPV Neutrophils % Lymphocytes % Monocytes % Eosinophils % Basophils % Sodium Potassium Chloride Carbon Dioxide Anion Gap BUN Creatinine POC Glucometer 204 243 Random Glucose Calcium Magnesium Total Bilirubin Direct Bilirubin AST ALT Alkaline Phosphatase Total Protein Albumin Blood Type O POSITIVE Antibody Screen Negative 09/28/16 09/28/16 09/28/16 06:00 06:00 06:12 WBC 12.3 H RBC 4.19 Hgb 11.2 L Hct 33.1 L MCV 79.0 L MCHC 33.8 RDW 13.3 Plt Count 683 H MPV 7.0 L Neutrophils % 80.8 Lymphocytes % 11.7 D Monocytes % 6.1 Eosinophils % 0.9 D Basophils % 0.5 Sodium 135 L Potassium 4.5 D Chloride 98 Carbon Dioxide 26 Anion Gap 11 BUN 10 D Creatinine 0.5 L D POC Glucometer 156 Random Glucose 160 H D Calcium 8.1 L Magnesium 2.0 Total Bilirubin 0.4 D Direct Bilirubin 0.2 AST 34 ALT 30 Alkaline Phosphatase 425 H Total Protein 6.2 L Albumin 1.6 L Blood Type Antibody Screen 09/28/16 11:51 WBC RBC Hgb Hct MCV MCHC RDW Plt Count MPV Neutrophils % Lymphocytes % Monocytes % Eosinophils % Basophils % Sodium Potassium Chloride Carbon Dioxide Anion Gap BUN Creatinine POC Glucometer 285 Random Glucose Calcium Magnesium Total Bilirubin Direct Bilirubin AST ALT Alkaline Phosphatase Total Protein Albumin Blood Type Antibody Screen Active Medications Generic Name Dose Route Start Last Admin Trade Name Najma PRN Reason Stop Dose Admin Acetaminophen 650 mg 09/25/16 21:50 Tylenol - PO Q4H PRN FEVER OR PAIN Sodium Chloride 1,000 mls @ 83 mls/hr 09/25/16 22:00 09/28/16 09:57 Normal Saline - IV Not Given ASDIR BUTCH Vancomycin HCl 250 mls @ 166.667 mls/hr 09/26/16 10:00 09/28/16 09:57 Vancomycin (Pre-Docked) IVPB 166.667 mls/hr DAILY [facility] Administration Protocol Ertapenem 1 gm/ Sodium 50 mls @ 100 mls/hr 09/26/16 10:00 09/28/16 11:50 Chloride IVPB 100 mls/hr DAILY [facility] Administration Protocol Insulin Aspart 0 vial 09/25/16 22:00 09/28/16 17:20 Novolog Vial Sliding Scale - SQ 6 units ACHS [facility] Administration Protocol Multivitamins/Minerals/Vitamin C 1 tab 09/28/16 10:00 09/28/16 09:57 Tab-A-Vit - PO 1 tab DAILY BUTCH Administration Imaging 09/25 CXR: masslike opacity right suprahilar region; moderate right pleural effusion concerning for loculated effusion 09/25 CT chest: large loculated right pleural effusion with consolidation/ atelectasis in RLL; patchy infiltrate RUL; small loculated pleural effusion RML ; enlarged mediastinal and right hilar lymph nodes; small pericardial effusion 09/26 CTAP: loculated pleural effusion with air bubbles may represent empyema; additional loculation anteriorly; consolidation/atelectasis of RLL; left lobe of liver with small hypodensity, needs US; no acute pathology in abdomen ASSESSMENT/PLAN 61 year-old man from [place] since 2006 (no recent travel) with a PMH of HLD and IDDM, presents with subjective fever, cough, and night sweats x several weeks, weight loss x several months. Admitted for sepsis secondary to CAP. Sepsis secondary to community-acquired pneumonia Empyema s/p right chest tube --febrile to 100.2, hemodynamically stable --chest tube draining pus --pleural fluid growing strep species --seen by ID, continue Vanc (day #3) and Ertapenem (day #3) --cultures, TB Gold, histoplasma Ag-urine --AFB negative x 3 --HIV negative --likely will go for VATS on Friday; will need CT chest non-contrast on Friday Small pericardial effusion ruled out --CT was suggestive of pericardial effusion but echo has no signs of pericardial effusion and is otherwise unremarkable --seen and evaluated by cardiology, no further workup NIDDM --Novolog sliding scale coverage F/E/N Fluids: NS @ 83mL/hr Electrolytes: replete as indicated Nutrition: diabetic diet DVT prophylaxis: hold chemical prophylaxis due to scheduled surgery; SCDs Dispo: continues to require inpatient care. Full Code. Visit type - Emergency Visit Emergency Visit: Yes ED Registration Date: 09/25/16 Care time: The patient presented to the Emergency Department on the above date and was hospitalized for further evaluation of their emergent condition. - New Patient This patient is new to me today: No - Critical Care Critical Care patient: No
[2016-09-29] MEDS: INSULIN SLIDING SCALE (NOVOLOG) 1 VIAL SQ SCH ×4 (06:37→21:57)
[2016-09-29 07:34] LABS: BASOPHIL 2.6 % (0-2.0); MCH 26.2 pg (25.7-33.7); MCHC 33.2 g/dl (32.0-35.9); MEAN CELL VOLUME 79.1 fl (80-96); MEAN PLT VOLUME 6.7 fl (7.5-11.1); NEUTROPHILS 78.2 % (42.8-82.8); PLATELET COUNT 709 K/MM3 (134-434); RDW 12.7 % (11.9-15.9); WHITE BLOOD COUNT 12.4 K/mm3 (4.0-10.0)
[2016-09-29 08:40] LABS: ALBUMIN 1.7 g/dl (3.4-5.0); ALK PHOS 396 U/L (45-117); ANION GAP 10 (8-16); BILIRUBIN,TOTAL 0.4 mg/dL (0.2-1.0); CALCIUM 8.1 mg/dL (8.5-10.1); CO2 26 mmol/L (21-32); COCKROFT - GAULT 101.47; CREATININE 0.6 mg/dL (0.7-1.3); GLUCOSE,RANDOM 173 mg/dL (74-106); MAGNESIUM 1.9 mg/dL (1.8-2.4); SGOT/AST 52 U/L (15-37); SGPT/ALT 40 U/L (12-78); TOT PROT 6.7 g/dl (6.4-8.2)
[2016-09-29] MEDS: MULTIVITAMINS (DAILY MVI) TABLET (FP) PO SCH (10:22)
[2016-09-29] MEDS: ERTAPENEM SODIUM 1 GM in SODIUM CHLORIDE 50 ML IVPB SCH (10:22)
[2016-09-29] MEDS: SODIUM CHLORIDE 1,000 ML IV SCH (10:24)
[2016-09-29] MEDS: VANCOMYCIN 1 GRAM (PRE-DOCKED) 250 ML IVPB SCH (10:57)
--- NOTE | 2016-09-29 18:26 | PN ---
Physical Exam: SUBJECTIVE: Patient seen and examined at bedside. OBJECTIVE: Vital Signs Period Temp Pulse Resp BP Sys/Basurto Pulse Ox Last 24 Hr 98.1 F-98.6 F 84-86 16-20 94-111/62-73 97-97 GENERAL: The patient is awake, alert, and fully oriented, in no acute distress. Thin. HEAD: Normal with no signs of trauma. EYES: PERRL, extraocular movements intact, sclera anicteric, conjunctiva clear. No ptosis. LUNGS: Diminished sounds on right but improved; right sided chest tube HEART: Regular rate and rhythm, S1, S2 without murmur, rub or gallop. ABDOMEN: Soft, nontender, nondistended, normoactive bowel sounds, no guarding, no rebound, no hepatosplenomegaly, no masses. EXTREMITIES: 2+ pulses, warm, well-perfused, no edema. NEUROLOGICAL: Cranial nerves II through XII grossly intact. Normal speech, gait not observed. Laboratory Results - last 24 hr 09/28/16 09/29/16 09/29/16 17:18 05:51 06:10 WBC 12.4 H RBC 4.30 Hgb 11.3 L Hct 34.0 L MCV 79.1 L MCHC 33.2 RDW 12.7 Plt Count 709 H MPV 6.7 L Neutrophils % 78.2 Lymphocytes % 13.5 Monocytes % 4.7 Eosinophils % 1.0 Basophils % 2.6 H D Sodium Potassium Chloride Carbon Dioxide Anion Gap BUN Creatinine Creat Clearance w eGFR POC Glucometer 281 244 Random Glucose Calcium Magnesium Total Bilirubin AST ALT Alkaline Phosphatase Total Protein Albumin 09/29/16 09/29/16 09/29/16 06:10 11:26 17:01 WBC RBC Hgb Hct MCV MCHC RDW Plt Count MPV Neutrophils % Lymphocytes % Monocytes % Eosinophils % Basophils % Sodium 134 L Potassium 4.4 Chloride 98 Carbon Dioxide 26 Anion Gap 10 BUN 9 Creatinine 0.6 L Creat Clearance w eGFR > 60 POC Glucometer 235 254 Random Glucose 173 H Calcium 8.1 L Magnesium 1.9 Total Bilirubin 0.4 AST 52 H D ALT 40 D Alkaline Phosphatase 396 H Total Protein 6.7 Albumin 1.7 L Active Medications Generic Name Dose Route Start Last Admin Trade Name Freq PRN Reason Stop Dose Admin Acetaminophen 650 mg 09/25/16 21:50 Tylenol - PO Q4H PRN FEVER OR PAIN Sodium Chloride 1,000 mls @ 83 mls/hr 09/25/16 22:00 09/29/16 10:24 Normal Saline - IV 83 mls/hr ASDIR BUTCH Administration Vancomycin HCl 250 mls @ 166.667 mls/hr 09/26/16 10:00 09/29/16 10:57 Vancomycin (Pre-Docked) IVPB 166.667 mls/hr DAILY BUTCH Administration Protocol Ertapenem 1 gm/ Sodium 50 mls @ 100 mls/hr 09/26/16 10:00 09/29/16 10:22 Chloride IVPB 100 mls/hr DAILY BUTCH Administration Protocol Insulin Aspart 0 vial 09/25/16 22:00 09/29/16 17:19 Novolog Vial Sliding Scale - SQ 6 units ACHS BUTCH Administration Protocol Multivitamins/Minerals/Vitamin C 1 tab 09/28/16 10:00 09/29/16 10:22 Tab-A-Vit - PO 1 tab DAILY BUTCH Administration Imaging 09/25 CXR: masslike opacity right suprahilar region; moderate right pleural effusion concerning for loculated effusion 09/25 CT chest: large loculated right pleural effusion with consolidation/ atelectasis in RLL; patchy infiltrate RUL; small loculated pleural effusion RML ; enlarged mediastinal and right hilar lymph nodes; small pericardial effusion 09/26 CTAP: loculated pleural effusion with air bubbles may represent empyema; additional loculation anteriorly; consolidation/atelectasis of RLL; left lobe of liver with small hypodensity, needs US; no acute pathology in abdomen ASSESSMENT/PLAN 61 year-old man with a PMH of HLD and IDDM, admitted for sepsis secondary to CAP and empyema. Sepsis secondary to Streptococcus intermedius pneumonia Empyema s/p right chest tube --afebrile, WBC trending down, hemodynamically stable --right chest tube still draining pus, for VATS procedure tomorrow; CT chest done today pending dictation --pleural fluid culture positive for S. intermedius --continue Vanc (day #4) and Ertapenem (day #4) --blood and urine cultures negative to date --urine histoplasma Ag pending --AFB negative x 3, TB Gold pending Small pericardial effusion ruled out --CT was suggestive of pericardial effusion but echo has no signs of pericardial effusion and is otherwise unremarkable --seen and evaluated by cardiology, no further workup NIDDM --Novolog sliding scale coverage F/E/N Fluids: PO intake adequate Electrolytes: replete as indicated Nutrition: diabetic diet DVT prophylaxis: hold chemical prophylaxis due to scheduled surgery; SCDs Dispo: VATS procedure tomorrow. Full Code. Visit type - Emergency Visit Emergency Visit: Yes ED Registration Date: 09/25/16 Care time: The patient presented to the Emergency Department on the above date and was hospitalized for further evaluation of their emergent condition. - New Patient This patient is new to me today: No - Critical Care Critical Care patient: No
[2016-09-30] MEDS: INSULIN SLIDING SCALE (NOVOLOG) 1 VIAL SQ SCH ×5 (06:28→21:50)
[2016-09-30] MEDS ORDERED: LIDOCAINE HCL 1%, 10 MG/ML (20ML VIAL) ONE (07:31)
[2016-09-30] MEDS ORDERED: BUPIVACAINE HCL/PF 0.5% (5MG/ML) 10 ML VIAL ONE (07:31)
[2016-09-30 07:49] LABS: MCH 26.1 pg (25.7-33.7); MCHC 32.8 g/dl (32.0-35.9); MEAN CELL VOLUME 79.5 fl (80-96); MEAN PLT VOLUME 6.9 fl (7.5-11.1); PLATELET COUNT 718 K/MM3 (134-434); WHITE BLOOD COUNT 11.5 K/mm3 (4.0-10.0)
[2016-09-30] MEDS ORDERED: BUPIVACAINE HCL/PF 0.25% (2.5MG/ML) 10 ML VIAL ONE (07:54)
[2016-09-30] MEDS ORDERED: LIDOCAINE 1%/EPI 1:100000 (50 ML MULTI DOSE VIAL) ONE (07:54)
[2016-09-30 08:03] LABS: ALBUMIN 1.7 g/dl (3.4-5.0); ALK PHOS 358 U/L (45-117); ANION GAP 11 (8-16); BILIRUBIN,TOTAL 0.3 mg/dL (0.2-1.0); CALCIUM 8.3 mg/dL (8.5-10.1); CO2 26 mmol/L (21-32); COCKROFT - GAULT 101.47; CREATININE 0.6 mg/dL (0.7-1.3); GLUCOSE,RANDOM 176 mg/dL (74-106); MAGNESIUM 1.9 mg/dL (1.8-2.4); SGOT/AST 53 U/L (15-37); SGPT/ALT 43 U/L (12-78); TOT PROT 6.7 g/dl (6.4-8.2)
[2016-09-30] MEDS ORDERED: MIDAZOLAM HCL 2 MG/2 ML SINGLE DOSE VIAL ONE (08:05)
[2016-09-30 08:11] LABS: INR 1.22 (0.82-1.09); PROTHROMBIN TIME (PATIENT) 13.5 SEC (9.98-11.88)
[2016-09-30] MEDS ORDERED: PROPOFOL 20 ML ONE ×2 (08:13)
[2016-09-30] MEDS ORDERED: ROCURONIUM BROMIDE 50 MG/5 ML VIAL ONE ×2 (08:16→08:56)
[2016-09-30 08:36] LABS: PLATELET ESTIMATE INCREASED (NORMAL)
[2016-09-30] MEDS ORDERED: ceFAZolin SODIUM 1 GM VIAL IVPB ONE (08:40)
[2016-09-30] MEDS ORDERED: HEPARIN NA (PORCINE) 5,000 UNITS/ML 1ML VIAL ONE (08:54)
[2016-09-30] MEDS ORDERED: HEPARIN NA (PORCINE) 5,000 UNITS/ML 1ML VIAL SQ ONE (08:57)
[2016-09-30] MEDS ORDERED: LIDOCAINE 1%/EPI 1:100000 (50 ML MULTI DOSE VIAL) INF ONE ×2 (08:59)
[2016-09-30] MEDS ORDERED: BUPIVACAINE HCL/PF 0.25% (2.5MG/ML) 10 ML VIAL IJ ONE ×2 (08:59)
[2016-09-30] MEDS ORDERED: HYDROmorphone HCL/PF 1 MG/ML VIAL (FOR PYXIS CHARGING ONLY) ONE (09:04)
[2016-09-30] MEDS ORDERED: NEOSTIGMINE METHYLSULFATE 0.5 MG/ML - 10 ML MDV ONE (09:15)
[2016-09-30] MEDS: HEPARIN NA (PORCINE) 5,000 UNITS/ML 1ML VIAL SQ SCH ×2 (10:00→21:40)
--- NOTE | 2016-09-30 10:39 | OP ---
Operative Note - Note: Operative Date: 09/30/16 Pre-Operative Diagnosis: Empyema Operation: Bronchoscopy, right VATS, pneumolysis, partial decortication Findings: Purulent pocket posterior to RUL, fibrinous exudate predominantly over RLL and posterior major fissure, adhesions of RLL to diaphragm and RML to diaphragm. Minimal secretions in airway on bronchoscopy. Surgeon: Andrea Hsieh Stonework Tracer: Pau Cotton Anesthesiologist/EQUITY SALES ASSISTANT: Radha Muse Specimens Removed: pleura, pleural contents (fibrinous exudate and rind) Estimated Blood Loss (mls): 200 Drains & Tubes with Location: 2 chest tubes: more anterior on chest is basilar tube, more posterior on chest is apical tube.
[2016-09-30] MEDS ORDERED: HYDROmorphone HCL CARPU-JECT 1 MG/1 ML DISP.SYRIN IVPUSH PRN (10:41)
--- NOTE | 2016-09-30 10:43 | SURG ---
Surgery Hoop Bending Machine Operator Note Hoop Bending Machine Operator: Pau Cotton PA-C Date of Service: 09/30/16 Diagnosis: Empyema Procedure: right VATS, pneumolysis, partial decortication I was present for the entirety of the operative procedure. For further detail, please refer to operative report. Visit type - Case Type Case Type: ED Admission - New patient This patient is new to me today: Yes Date on this admission: 09/30/16
[2016-09-30] MEDS ORDERED: IPRATROPIUM BR 0.02% 0.5 MG/2.5 ML VIAL.NEB. NEB SCH (10:45)
[2016-09-30] MEDS ORDERED: HYDROmorphone *PCA* 10MG/50ML DISP.SYRIN PCA ONE (10:56)
--- NOTE | 2016-09-30 11:21 | PN ---
Progress Note (short form) - Note Progress Note: ID Ertepenem continues though now the organism Strep Anginosus group sensitivity pending should be PCN sensitive Selected Entries 09/30/16 06:39 Temperature 97.8 F Pulse Rate 65 Respiratory 20 Rate Blood Pressure 104/64 Microbiology 09/26/16 12:30 Pleural Fluid Gram Stain - Final 09/26/16 12:30 Pleural Fluid Anaerobic Culture - Final Streptococcus Intermedius NO ANAEROBES WERE ISOLATED Laboratory Tests 09/30/16 09/30/16 06:00 06:00 WBC 11.5 H Hgb 11.2 L Hct 34.2 L Plt Count 718 H BUN 10 Creatinine 0.6 L Assessment Strep anginosus empyema post VAT today Plan By tomorrow we should have sensitivity and be able to change to ?? PCIrene Almonte MD Problem List - Problems (1) Empyema Code(s): J86.9 - PYOTHORAX WITHOUT FISTULA (2) Pneumonia Code(s): J18.9 - PNEUMONIA, UNSPECIFIED ORGANISM
--- NOTE | 2016-09-30 11:44 | PN ---
Progress Note (short form) - Note Progress Note: S/P Right VATS, bronchoscopy, pneumolysis, partial decorication, with intercostal nerve block. CT x 2 were placed. Intake & Output 09/27/16 09/28/16 09/29/16 09/30/16 23:59 23:59 23:59 23:59 Intake Total 2300 3596 4478 6581 Output Total 1050 70 95 4373 Balance 1250 3526 4383 2208 Last Vital Signs Temp Pulse Resp BP Pulse Ox 98.2 F 91 H 16 102/54 99 09/30/16 10:33 09/30/16 11:30 09/30/16 11:30 09/30/16 11:30 09/30/16 11:30 Active Medications Acetaminophen (Tylenol -) 650 mg PO Q4H PRN PRN Reason: FEVER OR PAIN Fentanyl (Sublimaze Injection -) 25 mcg IVPUSH [id number] PRN PRN Reason: PAIN Stop: 10/03/16 10:42 Fentanyl (Sublimaze Injection -) 50 mcg IVPUSH [id number] PRN PRN Reason: PAIN Stop: 10/03/16 10:42 Heparin Sodium (Porcine) (Heparin -) 5,000 unit SQ BID BUTCH Stop: 10/06/16 08:14 Hydromorphone HCl (Dilaudid Injection -) 0.5 mg IVPUSH [id number] PRN PRN Reason: PAIN Stop: 10/03/16 10:42 Hydromorphone HCl (Dilaudid Staff Interpreter -) 0 mg PRESS TENDER PRESS TENDER BUTCH PRN Reason: Protocol Stop: 10/02/16 10:44 Vancomycin HCl (Vancomycin (Pre-Docked)) 250 mls @ 166.667 mls/hr IVPB DAILY BUTCH PRN Reason: Protocol Last Admin: 09/29/16 10:57 Dose: 166.667 mls/hr Ertapenem 1 gm/ Sodium (Chloride) 50 mls @ 100 mls/hr IVPB DAILY BUTCH PRN Reason: Protocol Last Admin: 09/29/16 10:22 Dose: 100 mls/hr Lactated Ringer's (Lactated Ringers Solution) 1,000 mls @ 125 mls/hr IV ASDIR BUTCH Insulin Aspart (Novolog Vial Sliding Scale -) 0 vial SQ ACHS BUTCH PRN Reason: Protocol Last Admin: 09/30/16 06:30 Dose: Not Given Ipratropium [place] (Atrovent 0.02% Nebulizer -) 1 amp NEB QIDR [facility] Stop: 10/07/16 06:01 Multivitamins/Minerals/Vitamin C (Tab-A-Vit -) 1 tab PO DAILY [facility] Last Admin: 09/29/16 10:22 Dose: 1 tab Constitutional: Yes: NAD Eyes: Yes: Conjunctiva Clear, EOM Intact HENT: Yes: Atraumatic, Normocephalic Neck: Yes: Supple, Trachea Midline Cardiovascular: Yes: Regular Rate and Rhythm Respiratory: Yes: CT x [address] on the right without air leaks ...Clubbing: No Gastrointestinal: Yes: Normal Bowel Sounds, Soft. No: Tenderness Edema: No Labs: Laboratory Results - last 24 hr 09/28/16 09/28/16 09/29/16 21:02 21:04 11:26 WBC RBC Hgb Hct MCV MCHC RDW Plt Count MPV Neutrophils % Lymphocytes % Monocytes % Eosinophils % Basophils % Band Neutrophils Differential Comment Platelet Estimate Platelet Comment INR Sodium Potassium Chloride Carbon Dioxide Anion Gap BUN Creatinine Creat Clearance w eGFR POC Glucometer 333 314 235 Random Glucose Calcium Magnesium Total Bilirubin AST ALT Alkaline Phosphatase Total Protein Albumin 09/29/16 09/29/16 09/30/16 17:01 21:11 05:23 WBC RBC Hgb Hct MCV MCHC RDW Plt Count MPV Neutrophils % Lymphocytes % Monocytes % Eosinophils % Basophils % Band Neutrophils Differential Comment Platelet Estimate Platelet Comment INR Sodium Potassium Chloride Carbon Dioxide Anion Gap BUN Creatinine Creat Clearance w eGFR POC Glucometer 254 240 177 Random Glucose Calcium Magnesium Total Bilirubin AST ALT Alkaline Phosphatase Total Protein Albumin 09/30/16 09/30/16 09/30/16 06:00 06:00 06:00 WBC 11.5 H RBC 4.31 Hgb 11.2 L Hct 34.2 L MCV 79.5 L MCHC 32.8 RDW 13.0 Plt Count 718 H MPV 6.9 L Neutrophils % 85.0 H Lymphocytes % 8.0 D Monocytes % 2.0 L Eosinophils % 0.0 D Basophils % 0.0 Band Neutrophils 5.0 D Differential Comment Manual diff done Platelet Estimate Increased Platelet Comment Few large plts INR 1.22 H Sodium 135 L Potassium 4.8 Chloride 98 Carbon Dioxide 26 Anion Gap 11 BUN 10 Creatinine 0.6 L Creat Clearance w eGFR > 60 POC Glucometer Random Glucose 176 H Calcium 8.3 L Magnesium 1.9 Total Bilirubin 0.3 D AST 53 H ALT 43 Alkaline Phosphatase 358 H Total Protein 6.7 Albumin 1.7 L 09/30/16 10:44 WBC RBC Hgb Hct MCV MCHC RDW Plt Count MPV Neutrophils % Lymphocytes % Monocytes % Eosinophils % Basophils % Band Neutrophils Differential Comment Platelet Estimate Platelet Comment INR Sodium Potassium Chloride Carbon Dioxide Anion Gap BUN Creatinine Creat Clearance w eGFR POC Glucometer 211 Random Glucose Calcium Magnesium Total Bilirubin AST ALT Alkaline Phosphatase Total Protein Albumin Problem List - Problems (1) Pneumonia / Empyema Code(s): J18.9 - PNEUMONIA, UNSPECIFIED ORGANISM (2) Pleural effusion Code(s): J90 - PLEURAL EFFUSION, NOT ELSEWHERE CLASSIFIED (3) Diabetes Code(s): E11.9 - TYPE 2 DIABETES MELLITUS WITHOUT COMPLICATIONS Assessment/Plan Pneumonia Loculated Pleural Effusions r/o TB Empyema DM - ABX per ID - f/u cultures - Sputum for AFB - Follow daily CXR - O2 as needed - DVT prophylaxis - Incentive Spirometry Dr Garland
[2016-09-30] MEDS: LACTATED RINGERS SOLUTION 1,000 ML IV SCH ×2 (11:53→21:49)
--- NOTE | 2016-09-30 12:10 | OP ---
- Note: Patient Name: Hunter Walker MR#: [id number] Procedure Date: 09/30/2016 Preoperative Diagnosis: Right empyema Postoperative Diagnosis: same Procedure: 1. Bronchoscopy; 2. Right VATS pneumolysis; 3. Partial decortication; 4. Intercostal nerve block. Indication: Infection. Surgeon(s): Andrea Hsieh MD Cosurgeon: apple Surface Plate Finisher Surgeon: DELFIN Morley Anesthesia: General with intercostal nerve black. Findings: 1. Bronchoscopy: Minimal secretions; 2. VATS: RLL and RML adherent to diaphragm and mediastinum; fibrinous exudate throughout posterior RLL, major fissure posteriorly; pus posterior to top of RUL ; rind on RLL. Specimens Sent: pleural contents and rind for culture and pathology. Complications: none Drains / Tubes / Catheters: 2 chest tubes. Hardware / Implants: na Blood / Fluid Losses: 200cc. Post-Operative Condition: Hemodynamically stable in transfer to PACU Indications: This patient is a 61 year-old male with diabetes who presented with cough, weight loss, and hyperglycemia and was found to have an empyema. A drain was put in by Dr. Galan and he did not resolve completely. I discussed TPA/DNAse versus VATS and because of his age, low risk for VATS, and the goal of minimizing hospital days, and maximizing lung function, we both agreed that VATS should be recommended. After discussion and consideration of risks, benefits, and alternatives with the patient using a manager pricing, and with his son, he agreed to the procedure. The patient understood the risks and benefits. Details of Procedure: The patient was taken into the operating room and placed supine on the table. He was monitored with pulse oximetry and blood pressure monitoring. He was given sedation and then intubated. Preoperative antibiotics were given. I then performed a bronchoscopy. Findings are listed above. He was then changed to a double-lumen tube which was placed using bronchoscopy. Next we positioned. His right chest was prepared and draped in standard surgical fashion. The first port was placed in the anterior 6th intercostal space. A lower camera port was then created. A complete pneumolysis was performed with particular attention to freeing the diaphragm from the right middle and lower lobes. Fibrinous exudate was evacuated. Pleural biopsy was taken. A partial decortication was done of the right lower lobe and it showed better expansion afterwards. The chest was copiously irrigated. Two chest tubes were placed, secured, and the lung was expanded. Both incisions were closed and a dressing was placed. He was extubated and transferred to the PACU in hemodynamically stable condition.
[2016-09-30] MEDS: ERTAPENEM SODIUM 1 GM in SODIUM CHLORIDE 50 ML IVPB SCH (12:44)
[2016-09-30] MEDS: VANCOMYCIN 1 GRAM (PRE-DOCKED) 250 ML IVPB SCH (13:39)
[2016-09-30] MEDS ORDERED: PT OWN MED DRAWER 7, Y5N ONE ×2 (15:34→17:33)
[2016-09-30] MEDS: MULTIVITAMINS (DAILY MVI) TABLET (FP) PO SCH (15:36)
[2016-09-30] MEDS: AMPICILLIN - 2 GM in SODIUM CHLORIDE 100 ML IVPB SCH ×3 (15:36→22:30)
[2016-09-30] MEDS: IPRATROPIUM BR 0.02% 0.5 MG/2.5 ML VIAL.NEB. NEB SCH ×3 (15:44→23:02)
--- NOTE | 2016-09-30 17:53 | PN ---
Physical Exam: SUBJECTIVE: Patient seen and examined in ICU. OBJECTIVE: Vital Signs Period Temp Pulse Resp BP Sys/Basurto Pulse Ox Last 24 Hr 97.7 F-98.2 F 65-94 12-20 84-104/50-79 96-100 GENERAL: The patient is awake, alert, and fully oriented, in no acute distress. HEAD: Normal with no signs of trauma. EYES: PERRL, extraocular movements intact, sclera anicteric, conjunctiva clear. No ptosis. LUNGS: Two right-sided chest tubes draining serosanguinous fluid; breath sounds on right are improved HEART: Regular rate and rhythm, S1, S2 without murmur, rub or gallop. ABDOMEN: Soft, nontender, nondistended, normoactive bowel sounds, no guarding, no rebound, no hepatosplenomegaly, no masses. EXTREMITIES: 2+ pulses, warm, well-perfused, no edema. NEUROLOGICAL: Cranial nerves II through XII grossly intact. Normal speech, gait not observed. Laboratory Results - last 24 hr 09/27/16 09/28/16 09/28/16 03:45 21:02 21:04 WBC RBC Hgb Hct MCV MCHC RDW Plt Count MPV Neutrophils % Lymphocytes % Monocytes % Eosinophils % Basophils % Band Neutrophils Differential Comment Platelet Estimate Platelet Comment INR Sodium Potassium Chloride Carbon Dioxide Anion Gap BUN Creatinine Creat Clearance w eGFR POC Glucometer 333 314 Random Glucose Calcium Magnesium Total Bilirubin AST ALT Alkaline Phosphatase Total Protein Albumin Urine Histoplasma Ag 0.00 09/29/16 09/29/16 09/30/16 17:01 21:11 05:23 WBC RBC Hgb Hct MCV MCHC RDW Plt Count MPV Neutrophils % Lymphocytes % Monocytes % Eosinophils % Basophils % Band Neutrophils Differential Comment Platelet Estimate Platelet Comment INR Sodium Potassium Chloride Carbon Dioxide Anion Gap BUN Creatinine Creat Clearance w eGFR POC Glucometer 254 240 177 Random Glucose Calcium Magnesium Total Bilirubin AST ALT Alkaline Phosphatase Total Protein Albumin Urine Histoplasma Ag 09/30/16 09/30/16 09/30/16 06:00 06:00 06:00 WBC 11.5 H RBC 4.31 Hgb 11.2 L Hct 34.2 L MCV 79.5 L MCHC 32.8 RDW 13.0 Plt Count 718 H MPV 6.9 L Neutrophils % 85.0 H Lymphocytes % 8.0 D Monocytes % 2.0 L Eosinophils % 0.0 D Basophils % 0.0 Band Neutrophils 5.0 D Differential Comment Manual diff done Platelet Estimate Increased Platelet Comment Few large plts INR 1.22 H Sodium 135 L Potassium 4.8 Chloride 98 Carbon Dioxide 26 Anion Gap 11 BUN 10 Creatinine 0.6 L Creat Clearance w eGFR > 60 POC Glucometer Random Glucose 176 H Calcium 8.3 L Magnesium 1.9 Total Bilirubin 0.3 D AST 53 H ALT 43 Alkaline Phosphatase 358 H Total Protein 6.7 Albumin 1.7 L Urine Histoplasma Ag 09/30/16 10:44 WBC RBC Hgb Hct MCV MCHC RDW Plt Count MPV Neutrophils % Lymphocytes % Monocytes % Eosinophils % Basophils % Band Neutrophils Differential Comment Platelet Estimate Platelet Comment INR Sodium Potassium Chloride Carbon Dioxide Anion Gap BUN Creatinine Creat Clearance w eGFR POC Glucometer 211 Random Glucose Calcium Magnesium Total Bilirubin AST ALT Alkaline Phosphatase Total Protein Albumin Urine Histoplasma Ag Active Medications Generic Name Dose Route Start Last Admin Trade Name Freq PRN Reason Stop Dose Admin Acetaminophen 650 mg 09/25/16 21:50 Tylenol - PO Q4H PRN FEVER OR PAIN Fentanyl 25 mcg 09/30/16 10:41 Sublimaze Injection - IVPUSH 10/03/16 10:42 [id number] PRN PAIN Fentanyl 50 mcg 09/30/16 10:41 Sublimaze Injection - IVPUSH 10/03/16 10:42 [id number] PRN PAIN Heparin Sodium (Porcine) 5,000 unit 09/30/16 08:15 09/30/16 10:00 Heparin - SQ 10/06/16 08:14 5,000 unit BID BUTCH Administration Hydromorphone HCl 0.5 mg 09/30/16 10:41 Dilaudid Injection - IVPUSH 10/03/16 10:42 [id number] PRN PAIN Hydromorphone HCl 0 mg 09/30/16 10:45 Dilaudid High Pressure Boiler Operator - OUTPATIENT SERVICES DIRECTOR 10/02/16 10:44 OUTPATIENT SERVICES DIRECTOR BUTCH Protocol Vancomycin HCl 250 mls @ 166.667 mls/hr 09/26/16 10:00 09/30/16 13:39 Vancomycin (Pre-Docked) IVPB 166.667 mls/hr DAILY BUTCH Administration Protocol Lactated Ringer's 1,000 mls @ 125 mls/hr 09/30/16 10:45 09/30/16 11:53 Lactated Ringers Solution IV 125 mls/hr ASDIR BUTCH Administration Ampicillin Sodium 2 gm/ Sodium 100 mls @ 200 mls/hr 09/30/16 12:00 09/30/16 15: 36 Chloride IVPB Not Given Q6H-IV BUTCH Insulin Aspart 0 vial 09/25/16 22:00 09/30/16 11:50 Novolog Vial Sliding Scale - SQ 4 units ACHS BUTCH Administration Protocol Ipratropium [place] 1 amp 09/30/16 12:00 09/30/16 15:44 Atrovent 0.02% Nebulizer - NEB 10/07/16 06:01 1 amp QIDR BUTCH Administration Multivitamins/Minerals/Vitamin C 1 tab 09/28/16 10:00 09/30/16 15:36 Tab-A-Vit - PO 1 tab DAILY BUTCH Administration ASSESSMENT/PLAN 61 year-old man with a PMH of HLD and IDDM, admitted for sepsis secondary to CAP and empyema. Sepsis secondary to Streptococcus intermedius pneumonia Empyema s/p right VATS pneumolysis and partial decortication, chest tubes x 2 --afebrile, WBC trending down, hemodynamically stable --pleural fluid culture positive for S. intermedius --per ID, continue Vanc (day #5), start ampicillin; d/c Ertapenem (09/26-09/29) --AFB negative x 3, TB Gold pending --dilaudid OUTPATIENT SERVICES DIRECTOR Small pericardial effusion ruled out --CT was suggestive of pericardial effusion but echo has no signs of pericardial effusion and is otherwise unremarkable --seen and evaluated by cardiology, no further workup NIDDM --Novolog sliding scale coverage F/E/N Fluids: PO intake adequate Electrolytes: replete as indicated Nutrition: diabetic diet DVT prophylaxis: hold chemical prophylaxis for another 24 hours; if no bleeding issues, start lovenox; SCDs Dispo: requires ICU level care. Full Code. Visit type - Emergency Visit Emergency Visit: Yes ED Registration Date: 09/25/16 Care time: The patient presented to the Emergency Department on the above date and was hospitalized for further evaluation of their emergent condition. - New Patient This patient is new to me today: No - Critical Care Critical Care patient: Yes Total Critical Care Time (in minutes): 35 Critical Care Statement: The care of this patient involved high complexity decision making to prevent further life threatening deterioration of the patient 's condition and/or to evalute & treat vital organ system(s) failure or risk of failure.
[2016-10-01] MEDS: AMPICILLIN - 2 GM in SODIUM CHLORIDE 100 ML IVPB SCH ×4 (04:18→21:00)
[2016-10-01 06:24] LABS: MCH 26.1 pg (25.7-33.7); MCHC 32.9 g/dl (32.0-35.9); MEAN CELL VOLUME 79.4 fl (80-96); MEAN PLT VOLUME 6.8 fl (7.5-11.1); PLATELET COUNT 604 K/MM3 (134-434); RDW 13.3 % (11.9-15.9)
[2016-10-01] MEDS: INSULIN SLIDING SCALE (NOVOLOG) 1 VIAL SQ SCH ×4 (06:27→22:26)
[2016-10-01] MEDS: IPRATROPIUM BR 0.02% 0.5 MG/2.5 ML VIAL.NEB. NEB SCH ×4 (06:45→23:20)
[2016-10-01 07:03] LABS: ALBUMIN 1.5 g/dl (3.4-5.0); ALK PHOS 270 U/L (45-117); ANION GAP 9 (8-16); BILIRUBIN,TOTAL 0.5 mg/dL (0.2-1.0); CALCIUM 7.8 mg/dL (8.5-10.1); CO2 29 mmol/L (21-32); COCKROFT - GAULT 97; CREATININE 0.7 mg/dL (0.7-1.3); GLUCOSE,RANDOM 240 mg/dL (74-106); SGOT/AST 30 U/L (15-37); SGPT/ALT 32 U/L (12-78)
--- NOTE | 2016-10-01 07:40 | PN ---
Progress Note (short form) - Note Progress Note: Surgery- Dr. Hsieh Patient seen and examined POD#1. Patient is doing well, pain controlled, tolerating diet, urinating without issue. Last Vital Signs Temp Pulse Resp BP Pulse Ox 98.8 F 80 24 106/73 99 10/01/16 06:00 10/01/16 06:00 10/01/16 06:00 10/01/16 06:00 09/30/16 20:05 CBC, BMP 10/01/16 05:15 10/01/16 05:15 Output ant/basilar chest tube #1 90 ml/ 24 hr post/apical chest tube #2 120 ml/ 24 hr Exam: Gen: NAD, resting in bed Cardio: RRR Resp: chest tubes in place right chest, dressings c/d/i, weak respiratory/cough effort, minimal air leak posterior tube, serosanguinous drainage Problem List - Problems (1) Empyema Assessment/Plan: POD#1 s/p Bronchoscopy, right VATS, pneumolysis, partial decortication Pain control with Percocet, DC ASSISTANT PROFESSOR OF ENGLISH f/u CXR final read, daily CXR Continue chest tubes on suction 07 September downgrade to floor Patient discussed with Dr. Hsieh Code(s): J86.9 - PYOTHORAX WITHOUT FISTULA
[2016-10-01] MEDS ORDERED: PT OWN MED DRAWER 7, Y5N ONE (08:09)
--- NOTE | 2016-10-01 08:55 | PN ---
Progress Note, Physician Chief Complaint: Pt. pain controlled with DIRECTOR OF SURGERY, no anesthesia complications. - Current Medication List Current Medications: Active Medications Acetaminophen (Tylenol -) 650 mg PO Q4H PRN PRN Reason: FEVER OR PAIN Fentanyl (Sublimaze Injection -) 25 mcg IVPUSH [id number] PRN PRN Reason: PAIN Stop: 10/03/16 10:42 Fentanyl (Sublimaze Injection -) 50 mcg IVPUSH [id number] PRN PRN Reason: PAIN Stop: 10/03/16 10:42 Heparin Sodium (Porcine) (Heparin -) 5,000 unit SQ BID BUTCH Stop: 10/06/16 08:14 Last Admin: 09/30/16 21:40 Dose: 5,000 unit Hydromorphone HCl (Dilaudid Injection -) 0.5 mg IVPUSH [id number] PRN PRN Reason: PAIN Stop: 10/03/16 10:42 Hydromorphone HCl (Dilaudid Cloth Classer -) 0 mg DIRECTOR OF SURGERY DIRECTOR OF SURGERY BUTCH PRN Reason: Protocol Stop: 10/02/16 10:44 Vancomycin HCl (Vancomycin (Pre-Docked)) 250 mls @ 166.667 mls/hr IVPB DAILY BUTCH PRN Reason: Protocol Last Admin: 09/30/16 13:39 Dose: 166.667 mls/hr Lactated Ringer's (Lactated Ringers Solution) 1,000 mls @ 125 mls/hr IV ASDIR BUTCH Last Admin: 09/30/16 21:49 Dose: 125 mls/hr Ampicillin Sodium 2 gm/ Sodium (Chloride) 100 mls @ 200 mls/hr IVPB Q6H-IV BUTCH Last Admin: 10/01/16 08:12 Dose: 200 mls/hr Insulin Aspart (Novolog Vial Sliding Scale -) 0 vial SQ ACHS BUTCH PRN Reason: Protocol Last Admin: 10/01/16 06:27 Dose: 6 units Ipratropium [place] (Atrovent 0.02% Nebulizer -) 1 amp NEB QIDR BUTCH Stop: 10/07/16 06:01 Last Admin: 10/01/16 06:45 Dose: 1 amp Multivitamins/Minerals/Vitamin C (Tab-A-Vit -) 1 tab PO DAILY [facility] Last Admin: 09/30/16 15:36 Dose: 1 tab - Objective Vital Signs: Vital Signs Temperature 98.8 F 10/01/16 06:00 Pulse Rate 76 10/01/16 08:00 Respiratory Rate 17 10/01/16 08:00 Blood Pressure 97/61 10/01/16 08:00 O2 Sat by Pulse Oximetry (%) 100 10/01/16 08:00 Constitutional: Yes: Well Nourished, No Distress, Calm Respiratory: Yes: Other (right chest tube in place) Neurological: Yes: WNL, Alert, Oriented Labs: CBC, BMP 10/01/16 05:15 10/01/16 05:15 INR, PTT INR 1.22 (0.82-1.09) H 09/30/16 06:00 Assessment/Plan POD#1 s/p right VATS under GA, doing well. COntinue DIRECTOR OF SURGERY until chest tube is removed for comfort.
[2016-10-01] MEDS: MULTIVITAMINS (DAILY MVI) TABLET (FP) PO SCH (09:44)
[2016-10-01] MEDS: HEPARIN NA (PORCINE) 5,000 UNITS/ML 1ML VIAL SQ SCH ×2 (09:44→22:25)
[2016-10-01] MEDS: VANCOMYCIN 1 GRAM (PRE-DOCKED) 250 ML IVPB SCH (10:21)
--- NOTE | 2016-10-01 12:14 | PN ---
Progress Note, Physician History of Present Illness: Post op VATS OOB in chair No c/o chest pain Afebrile WBC mildly elevated - Current Medication List Current Medications: Active Medications Acetaminophen (Tylenol -) 650 mg PO Q4H PRN PRN Reason: FEVER OR PAIN Fentanyl (Sublimaze Injection -) 25 mcg IVPUSH [id number] PRN PRN Reason: PAIN Stop: 10/03/16 10:42 Fentanyl (Sublimaze Injection -) 50 mcg IVPUSH [id number] PRN PRN Reason: PAIN Stop: 10/03/16 10:42 Heparin Sodium (Porcine) (Heparin -) 5,000 unit SQ BID BUTCH Stop: 10/06/16 08:14 Last Admin: 10/01/16 09:44 Dose: 5,000 unit Hydromorphone HCl (Dilaudid Injection -) 0.5 mg IVPUSH [id number] PRN PRN Reason: PAIN Stop: 10/03/16 10:42 Hydromorphone HCl (Dilaudid Diesel Instructor -) 0 mg GUEST ASSOCIATE GUEST ASSOCIATE BUTCH PRN Reason: Protocol Stop: 10/02/16 10:44 Vancomycin HCl (Vancomycin (Pre-Docked)) 250 mls @ 166.667 mls/hr IVPB DAILY BUTCH PRN Reason: Protocol Last Admin: 10/01/16 10:21 Dose: 166.667 mls/hr Lactated Ringer's (Lactated Ringers Solution) 1,000 mls @ 125 mls/hr IV ASDIR BUTCH Last Admin: 09/30/16 21:49 Dose: 125 mls/hr Ampicillin Sodium 2 gm/ Sodium (Chloride) 100 mls @ 200 mls/hr IVPB Q6H-IV BUTCH Last Admin: 10/01/16 08:12 Dose: 200 mls/hr Insulin Aspart (Novolog Vial Sliding Scale -) 0 vial SQ ACHS BUTCH PRN Reason: Protocol Last Admin: 10/01/16 11:42 Dose: 6 units Ipratropium [place] (Atrovent 0.02% Nebulizer -) 1 amp NEB QIDR BUT[facility] Stop: 10/07/16 06:01 Last Admin: 10/01/16 11:05 Dose: 1 amp Multivitamins/Minerals/Vitamin C (Tab-A-Vit -) 1 tab PO DAILY [facility] Last Admin: 10/01/16 09:44 Dose: 1 tab - Objective Vital Signs: Vital Signs Temperature 98.9 F 10/01/16 10:00 Pulse Rate 86 10/01/16 12:00 Respiratory Rate 18 10/01/16 12:00 Blood Pressure 104/65 10/01/16 12:00 O2 Sat by Pulse Oximetry (%) 99 10/01/16 10:16 Constitutional: Yes: No Distress Eyes: Yes: Conjunctiva Clear Cardiovascular: Yes: Regular Rate and Rhythm, S1, S2 Respiratory: Yes: Diminished, Other (+ chest tube) Gastrointestinal: Yes: Normal Bowel Sounds, Soft. No: Tenderness Edema: No Labs: CBC, BMP 10/01/16 05:15 10/01/16 05:15 INR, PTT INR 1.22 (0.82-1.09) H 09/30/16 06:00 Assessment/Plan Post op Bronch, R VATS, partial decortication Empyema, strep anginosis Continue vancomycin/ ampicillin
--- NOTE | 2016-10-01 12:31 | PN ---
Teaching Attending Note Name of Resident: Chikis Vera ATTENDING PHYSICIAN STATEMENT I saw and evaluated the patient. I reviewed the resident's note and discussed the case with the resident. I agree with the resident's findings and plan as documented. SUBJECTIVE: Pt seen and examined in the ICU. Pain controlled with current regimen. No fevers or chills. No shortness of breath. OBJECTIVE: Last Vital Signs Temp Pulse Resp BP Pulse Ox 98.9 F 86 18 104/65 99 10/01/16 10:00 10/01/16 12:00 10/01/16 12:00 10/01/16 12:00 10/01/16 10:16 Intake & Output 09/28/16 09/29/16 09/30/16 10/01/16 23:59 23:59 23:59 23:59 Intake Total 3596 4478 7991 2180 Output Total 70 95 5538 1385 Balance 3526 4383 2453 795 Weight 134 lb 4.184 oz Gen: NAD at rest Heart: RRR Lung: basilar rales Abd: soft, nontender Ext: no edema Chest tube: serosanguinous drainage, no air leak CBC, BMP 10/01/16 05:15 10/01/16 05:15 Active Medications Acetaminophen (Tylenol -) 650 mg PO Q4H PRN PRN Reason: FEVER OR PAIN Fentanyl (Sublimaze Injection -) 25 mcg IVPUSH [id number] PRN PRN Reason: PAIN Stop: 10/03/16 10:42 Fentanyl (Sublimaze Injection -) 50 mcg IVPUSH [id number] PRN PRN Reason: PAIN Stop: 10/03/16 10:42 Heparin Sodium (Porcine) (Heparin -) 5,000 unit SQ BID BUTCH Stop: 10/06/16 08:14 Last Admin: 10/01/16 09:44 Dose: 5,000 unit Hydromorphone HCl (Dilaudid Injection -) 0.5 mg IVPUSH [id number] PRN PRN Reason: PAIN Stop: 10/03/16 10:42 Hydromorphone HCl (Dilaudid Senior It Engineer -) 0 mg JANITOR AND CLEANER JANITOR AND CLEANER BUTCH PRN Reason: Protocol Stop: 10/02/16 10:44 Vancomycin HCl (Vancomycin (Pre-Docked)) 250 mls @ 166.667 mls/hr IVPB DAILY BUT[facility] PRN Reason: Protocol Last Admin: 10/01/16 10:21 Dose: 166.667 mls/hr Lactated Ringer's (Lactated Ringers Solution) 1,000 mls @ 125 mls/hr IV ASDIR [facility] Last Admin: 09/30/16 21:49 Dose: 125 mls/hr Ampicillin Sodium 2 gm/ Sodium (Chloride) 100 mls @ 200 mls/hr IVPB Q6H-IV BUTCH Last Admin: 10/01/16 08:12 Dose: 200 mls/hr Insulin Aspart (Novolog Vial Sliding Scale -) 0 vial SQ ACHS BUTCH PRN Reason: Protocol Last Admin: 10/01/16 11:42 Dose: 6 units Ipratropium [place] (Atrovent 0.02% Nebulizer -) 1 amp NEB QIDR [facility] Stop: 10/07/16 06:01 Last Admin: 10/01/16 11:05 Dose: 1 amp Multivitamins/Minerals/Vitamin C (Tab-A-Vit -) 1 tab PO DAILY [facility] Last Admin: 10/01/16 09:44 Dose: 1 tab ASSESSMENT AND PLAN: Pneumonia Empyema DM - antibiotics per ID - pain control - incentive spirometry - O2 as needed - monitor chest tube drainage - CT per thoracic surgery - DVT prophylaxis Problem List - Problems (1) Pneumonia Code(s): J18.9 - PNEUMONIA, UNSPECIFIED ORGANISM (2) Pleural effusion Code(s): J90 - PLEURAL EFFUSION, NOT ELSEWHERE CLASSIFIED (3) Diabetes Code(s): E11.9 - TYPE 2 DIABETES MELLITUS WITHOUT COMPLICATIONS
--- NOTE | 2016-10-01 14:10 | PN ---
Physical Exam: SUBJECTIVE: Patient seen and examined in ICU. He is still complaining of discomfort and pain on right side of his chest but better than yesterday. He denies SOB, cough, fever, chills. OBJECTIVE: Vital Signs Period Temp Pulse Resp BP Sys/Basurto Pulse Ox Last 24 Hr 98.0 F-99.3 F 72-98 16-24 88-111/60-74 96-100 GENERAL: The patient is awake, alert, and fully oriented, in no acute distress. HEAD: Normal with no signs of trauma. EYES: extraocular movements intact, sclera anicteric, conjunctiva clear. ENT:oropharynx clear without exudates, moist mucous membranes. NECK: Trachea midline, full range of motion, supple. LUNGS: Diminished breath sounds on right side, crackles, no accessory muscle use , 2 chest tubes draining serosanguineous fluid. HEART: Regular rate and rhythm, S1, S2 without murmur, rub or gallop. ABDOMEN: Soft, nontender, nondistended, normoactive bowel sounds, no guarding, no rebound, no hepatosplenomegaly, no masses. EXTREMITIES: warm, well-perfused, no edema. NEUROLOGICAL: No facial asymmetry. Normal speech, gait not observed. PSYCH: Normal mood, normal affect. SKIN: Warm, dry, normal turgor, no rashes. Laboratory Results - last 24 hr 09/27/16 09/30/16 09/30/16 03:45 17:47 21:33 WBC RBC Hgb Hct MCV MCHC RDW Plt Count MPV Sodium Potassium Chloride Carbon Dioxide Anion Gap BUN Creatinine Creat Clearance w eGFR POC Glucometer [phone] Random Glucose Calcium Total Bilirubin AST ALT Alkaline Phosphatase Total Protein Albumin Urine Histoplasma Ag 0.00 10/01/16 10/01/16 10/01/16 05:15 05:15 05:31 WBC 14.0 H RBC 3.62 L Hgb 9.5 L D Hct 28.8 L D MCV 79.4 L MCHC 32.9 RDW 13.3 Plt Count 604 H MPV 6.8 L Sodium 134 L Potassium 4.6 Chloride 96 L Carbon Dioxide 29 Anion Gap 9 BUN 11 Creatinine 0.7 Creat Clearance w eGFR > 60 POC Glucometer [phone] Random Glucose 240 H D Calcium 7.8 L Total Bilirubin 0.5 D AST 30 D ALT 32 D Alkaline Phosphatase 270 H D Total Protein 6.0 L Albumin 1.5 L Urine Histoplasma Ag 10/01/16 11:40 WBC RBC Hgb Hct MCV MCHC RDW Plt Count MPV Sodium Potassium Chloride Carbon Dioxide Anion Gap BUN Creatinine Creat Clearance w eGFR POC Glucometer [phone] Random Glucose Calcium Total Bilirubin AST ALT Alkaline Phosphatase Total Protein Albumin Urine Histoplasma Ag Active Medications Generic Name Dose Route Start Last Admin Trade Name Freq PRN Reason Stop Dose Admin Acetaminophen 650 mg 09/25/16 21:50 Tylenol - PO Q4H PRN FEVER OR PAIN Fentanyl 25 mcg 09/30/16 10:41 Sublimaze Injection - IVPUSH 10/03/16 10:42 [id number] PRN PAIN Fentanyl 50 mcg 09/30/16 10:41 Sublimaze Injection - IVPUSH 10/03/16 10:42 [id number] PRN PAIN Heparin Sodium (Porcine) 5,000 unit 09/30/16 08:15 10/01/16 09:44 Heparin - SQ 10/06/16 08:14 5,000 unit BID BUTCH Administration Hydromorphone HCl 0.5 mg 09/30/16 10:41 Dilaudid Injection - IVPUSH 10/03/16 10:42 [id number] PRN PAIN Hydromorphone HCl 0 mg 09/30/16 10:45 Dilaudid Marine Fire Fighter - CHIEF SUSTAINABILITY OFFICER 10/02/16 10:44 CHIEF SUSTAINABILITY OFFICER BUTCH Protocol Vancomycin HCl 250 mls @ 166.667 mls/hr 09/26/16 10:00 10/01/16 10:21 Vancomycin (Pre-Docked) IVPB 166.667 mls/hr DAILY [facility] Administration Protocol Lactated Ringer's 1,000 mls @ 125 mls/hr 09/30/16 10:45 09/30/16 21:49 Lactated Ringers Solution IV 125 mls/hr ASDIR [facility] Administration Ampicillin Sodium 2 gm/ Sodium 100 mls @ 200 mls/hr 09/30/16 12:00 10/01/16 08: 12 Chloride IVPB 200 mls/hr Q6H-IV BUT[facility] Administration Insulin Aspart 0 vial 09/25/16 22:00 10/01/16 11:42 Novolog Vial Sliding Scale - SQ 6 units ACHS BUTCH Administration Protocol Ipratropium [place] 1 amp 09/30/16 12:00 10/01/16 11:05 Atrovent 0.02% Nebulizer - NEB 10/07/16 06:01 1 amp QIDR [facility] Administration Multivitamins/Minerals/Vitamin C 1 tab 09/28/16 10:00 10/01/16 09:44 Tab-A-Vit - PO 1 tab DAILY BUT[facility] Administration ASSESSMENT/PLAN: 61 year-old man with a PMH of HLD and IDDM, admitted for sepsis secondary to CAP and empyema. Sepsis secondary to CAP complicated with empyema -s/p right VATS pneumolysis and partial decortication, Failed attempt at placement of left-sided chest tube due to small pneumothorax and no safe window is deemed available for placement of a chest tube at this time. CT chest demonstrating small left-sided pneumothorax with a large pneumomediastinum posteriorly surrounding the aorta, trachea and esophagus and anteriorly in the retrosternal space extending to the left in the pericardial space. -chest tubes x 2 -monitor I&O -pleural fluid culture positive for S. intermedius -continue Vancomycin and ampicillin, f/u ID recommendations -AFB negative x 3, -dilaudid for pain control NIDDM Novolog sliding scale BGM F/E/N no/no changes/diabetic diet DVT prophylaxis: SCDs, will resume lovenox tomorrow Dispo: ICU monitoring. Full Code. Visit type - Emergency Visit Emergency Visit: Yes ED Registration Date: 09/25/16 Care time: The patient presented to the Emergency Department on the above date and was hospitalized for further evaluation of their emergent condition. - New Patient This patient is new to me today: No - Critical Care Critical Care patient: Yes Total Critical Care Time (in minutes): 40 Critical Care Statement: The care of this patient involved high complexity decision making to prevent further life threatening deterioration of the patient 's condition and/or to evalute & treat vital organ system(s) failure or risk of failure.
--- NOTE | 2016-10-01 14:21 | PATH ---
Surgical Pathology Report Patient Name: ALEXSANDRA BREEN [facility]. Rec. #: [id number] /Age/Gender: 1955 (Age: 61) / M Account: [id number] Location: ICU HYDROGRAPHIC SURVEYOR Taken: 09/30/2016 Received: 09/30/2016 Reported: 10/01/2016 Physicians: Andrea Hsieh M.D. Specimen(s) Received PLEURAL BIOPSY Clinical History Community acquired pneumonia Final Diagnosis PLEURA, BIOPSY: BENIGN FIBROCONNECTIVE TISSUE WITH MARKED ACUTE AND CHRONIC INFLAMMATION, INFLAMED GRANULATION TISSUE, NECROINFLAMMATORY DEBRIS AND FIBRINOUS MATERIAL. NO MALIGNANCY IDENTIFIED. Electronically Signed Zackary Payton M.D. Gross Description Received in formalin labeled "pleural biopsy" is a 4.0 x 1.4 x 0.6 cm logan-fermin, thickened portion of pleural tissue. The specimen is sectioned and entirely submitted 4 cassettes. /09/30/2016 saudi/09/30/2016
--- NOTE | 2016-10-01 15:43 | PN ---
Physical Exam: SUBJECTIVE: Patient seen and examined in ICU. He states his pain is tolerable, it hurts when he moves or takes a deep breath. He has a cough, it started today , no productive. Nephew at bedside OBJECTIVE: Vital Signs Period Temp Pulse Resp BP Sys/Basurto Pulse Ox Last 24 Hr 98.0 F-99.3 F 72-98 16-24 88-111/60-74 96-100 PE Neuro: alert, awake, cn 2-12intact Pulm: R base breath sounds present + crackles, diminished, L base clear x2 CT with serosanguinous drainage CV: s1 s2 rrr no mrg Abd: s nt nd + bs Ext: warm, no le edema Laboratory Results - last 24 hr 10/01/16 10/01/16 10/01/16 05:15 05:15 05:31 WBC 14.0 H RBC 3.62 L Hgb 9.5 L D Hct 28.8 L D MCV 79.4 L MCHC 32.9 RDW 13.3 Plt Count 604 H MPV 6.8 L Sodium 134 L Potassium 4.6 Chloride 96 L Carbon Dioxide 29 Anion Gap 9 BUN 11 Creatinine 0.7 Creat Clearance w eGFR > 60 POC Glucometer 273.38315 Random Glucose 240 H D Calcium 7.8 L Total Bilirubin 0.5 D AST 30 D ALT 32 D Alkaline Phosphatase 270 H D Total Protein 6.0 L Albumin 1.5 L Urine Histoplasma Ag Active Medications Generic Name Dose Route Start Last Admin Trade Name Freq PRN Reason Stop Dose Admin Acetaminophen 650 mg 09/25/16 21:50 Tylenol - PO Q4H PRN FEVER OR PAIN Fentanyl 25 mcg 09/30/16 10:41 Sublimaze Injection - IVPUSH 10/03/16 10:42 [id number] PRN PAIN Fentanyl 50 mcg 09/30/16 10:41 Sublimaze Injection - IVPUSH 10/03/16 10:42 [id number] PRN PAIN Heparin Sodium (Porcine) 5,000 unit 09/30/16 08:15 10/01/16 09:44 Heparin - SQ 10/06/16 08:14 5,000 unit BID BUTCH Administration Hydromorphone HCl 0.5 mg 09/30/16 10:41 Dilaudid Injection - IVPUSH 10/03/16 10:42 [id number] PRN PAIN Hydromorphone HCl 0 mg 09/30/16 10:45 Dilaudid Produce Clerk - ENTRY CLERK 10/02/16 10:44 ENTRY CLERK BUTCH Protocol Vancomycin HCl 250 mls @ 166.667 mls/hr 09/26/16 10:00 10/01/16 10:21 Vancomycin (Pre-Docked) IVPB 166.667 mls/hr DAILY [facility] Administration Protocol Lactated Ringer's 1,000 mls @ 125 mls/hr 09/30/16 10:45 09/30/16 21:49 Lactated Ringers Solution IV 125 mls/hr ASDIR [facility] Administration Ampicillin Sodium 2 gm/ Sodium 100 mls @ 200 mls/hr 09/30/16 12:00 10/01/16 14: 05 Chloride IVPB 200 mls/hr Q6H-IV BUT[facility] Administration Insulin Aspart 0 vial 09/25/16 22:00 10/01/16 11:42 Novolog Vial Sliding Scale - SQ 6 units ACHS BUTCH Administration Protocol Ipratropium [place] 1 amp 09/30/16 12:00 10/01/16 11:05 Atrovent 0.02% Nebulizer - NEB 10/07/16 06:01 1 amp QIDR [facility] Administration Multivitamins/Minerals/Vitamin C 1 tab 09/28/16 10:00 10/01/16 09:44 Tab-A-Vit - PO 1 tab DAILY BUT[facility] Administration Imaging: - CT was suggestive of pericardial effusion but echo has no signs of pericardial effusion and is otherwise unremarkable Antibiotics: - Ertapenem (09/26-09/29) Assessment: 61 year old male with a PMH of HLD and IDDM, admitted for sepsis secondary to CAP and empyema. Plan: 1. Sepsis secondary to Streptococcus intermedius pneumonia - Empyema s/p right VATS pneumolysis and partial decortication, chest tubes x 2 - Continue Vanc (day 6), start ampicillin (day 2) - AFB negative x 3, TB Gold pending - Dilaudid ENTRY CLERK 2.Small pericardial effusion ruled out - No further work up per cards 3. DM II - ISS, BGM ACHS 4. DVT ppx: - Heparin BID Visit type - Emergency Visit Emergency Visit: Yes ED Registration Date: 09/25/16 Care time: The patient presented to the Emergency Department on the above date and was hospitalized for further evaluation of their emergent condition. - New Patient This patient is new to me today: Yes Date on this admission: 10/01/16 - Critical Care Critical Care patient: No
[2016-10-01] MEDS ORDERED: HEMOQUE TEST 1 EACH EACH ONE (16:58)
[2016-10-01] MEDS: HYDROmorphone *PCA* 10MG/50ML DISP.SYRIN PCA SCH (22:12)
[2016-10-01] MEDS: LACTATED RINGERS SOLUTION 1,000 ML IV SCH (22:26)
[2016-10-02] MEDS: AMPICILLIN - 2 GM in SODIUM CHLORIDE 100 ML IVPB SCH ×4 (02:22→20:28)
[2016-10-02 06:26] LABS: MCH 26.4 pg (25.7-33.7); MCHC 33.6 g/dl (32.0-35.9); MEAN CELL VOLUME 78.7 fl (80-96); MEAN PLT VOLUME 6.7 fl (7.5-11.1); PLATELET COUNT 567 K/MM3 (134-434); RDW 13.1 % (11.9-15.9); WHITE BLOOD COUNT 11.4 K/mm3 (4.0-10.0)
[2016-10-02] MEDS: IPRATROPIUM BR 0.02% 0.5 MG/2.5 ML VIAL.NEB. NEB SCH ×3 (06:28→17:55)
[2016-10-02] MEDS: INSULIN SLIDING SCALE (NOVOLOG) 1 VIAL SQ SCH ×4 (06:52→22:34)
[2016-10-02 07:04] LABS: ALBUMIN 1.6 g/dl (3.4-5.0); ANION GAP 10 (8-16); CALCIUM 8.1 mg/dL (8.5-10.1); CO2 31 mmol/L (21-32); COCKROFT - GAULT 115.15; CREATININE 0.6 mg/dL (0.7-1.3); GLUCOSE,RANDOM 156 mg/dL (74-106); SGPT/ALT 23 U/L (12-78)
[2016-10-02 07:08] LABS: ALK PHOS 245 U/L (45-117); BILIRUBIN,TOTAL 0.4 mg/dL (0.2-1.0); SGOT/AST 20 U/L (15-37); TOT PROT 6.3 g/dl (6.4-8.2)
[2016-10-02] MEDS ORDERED: HYDROmorphone HCL CARPU-JECT 1 MG/1 ML DISP.SYRIN IVPB PRN ×2 (08:37→16:50)
[2016-10-02] MEDS ORDERED: PT OWN MED DRAWER 7, Y5N ONE ×2 (08:38→15:02)
[2016-10-02] MEDS: HEPARIN NA (PORCINE) 5,000 UNITS/ML 1ML VIAL SQ SCH ×3 (09:00→21:10)
[2016-10-02] MEDS: MULTIVITAMINS (DAILY MVI) TABLET (FP) PO SCH (09:00)
--- NOTE | 2016-10-02 09:34 | PN ---
Progress Note (short form) - Note Progress Note: POD #2 Alert. Sitting up in bed. Resting in position of comfort. C/o mild incisional tenderness. Pain control via PRN meds. Denies n/v/f/c, CP or SOB. Last Vital Signs Temp Pulse Resp BP Pulse Ox 99.4 F 105 H 18 104/66 98 10/01/16 18:10 10/02/16 08:00 10/02/16 08:00 10/02/16 08:00 10/02/16 09:00 CBC, BMP 10/02/16 05:15 10/02/16 05:15 OUTPUT 10/01/16 10/01/16 10/02/16 06:51 17:55 06:00 Anterior CxT 5 10 10 Lateral CxT 30 28 10 CXR /: subq emphysema right chest wall extending to neck. No ptx. Gen: NAD, resting in bed Cardio: RRR Resp: CxT x2 on pleurovac suction. Dressings c/d/i. Weak respiratory/cough effort. No air leak noted. Minimal soft tissue crepitus around tubes. Problem List - Problems (1) Empyema Assessment/Plan: POD#2 s/p Bronchoscopy, right VATS, pneumolysis, partial decortication DC community health educator and switch to oral pain control with Percocet f/u CXR Cont chest tubes on suction 20 Downgrade to floor Patient discussed with Dr. Hsieh and agrees with above plan Code(s): J86.9 - PYOTHORAX WITHOUT FISTULA
[2016-10-02] MEDS: VANCOMYCIN 1 GRAM (PRE-DOCKED) 250 ML IVPB SCH ×2 (09:57→21:04)
--- NOTE | 2016-10-02 10:13 | PN ---
Progress Note (short form) - Note Progress Note: ANESTHESIOLOGY 61M s/p VATS POD #2. Pain well controlled and pt tolerating PO diet. Not using SOFTWARE RELIABILITY ENGINEER. MAy D/C SOFTWARE RELIABILITY ENGINEER and switch to PO analgesics. Continue management as per primary team.
--- NOTE | 2016-10-02 11:14 | PN ---
Physical Exam: SUBJECTIVE: Patient seen and examined in ICU. he is feeling much better today, less pain in his chest. He is sitting comfortably in chair. he denies SOB, fever , chills. OBJECTIVE: Vital Signs Period Temp Pulse Resp BP Sys/Basurto Pulse Ox Last 24 Hr 99.3 F-100.7 F 83-107 14-21 103-128/50-80 96-100 GENERAL: The patient is awake, alert, and fully oriented, in no acute distress. HEAD: Normal with no signs of trauma. EYES: extraocular movements intact, sclera anicteric, conjunctiva clear. ENT:oropharynx clear without exudates, moist mucous membranes. NECK: Trachea midline, full range of motion, supple. LUNGS: Diminished breath sounds on right side, crackles, no accessory muscle use , 2 chest tubes draining serosanguineous fluid. HEART: Regular rate and rhythm, S1, S2 without murmur, rub or gallop. ABDOMEN: Soft, nontender, nondistended, normoactive bowel sounds, no guarding, no rebound, no hepatosplenomegaly, no masses. EXTREMITIES: warm, well-perfused, no edema. NEUROLOGICAL: No facial asymmetry. Normal speech, gait not observed. PSYCH: Normal mood, normal affect. SKIN: Warm, dry, normal turgor, no rashes. Laboratory Results - last 24 hr 10/01/16 10/01/16 10/01/16 11:40 17:02 22:17 WBC RBC Hgb Hct MCV MCHC RDW Plt Count MPV Sodium Potassium Chloride Carbon Dioxide Anion Gap BUN Creatinine Creat Clearance w eGFR POC Glucometer 295.20606 349.52938 264.16221 Random Glucose Calcium Total Bilirubin AST ALT Alkaline Phosphatase Total Protein Albumin Vancomycin Pre-Dose 10/02/16 10/02/16 10/02/16 05:15 05:15 08:59 WBC 11.4 H RBC 3.64 L Hgb 9.6 L Hct 28.7 L MCV 78.7 L MCHC 33.6 RDW 13.1 Plt Count 567 H MPV 6.7 L Sodium 134 L Potassium 4.3 Chloride 93 L Carbon Dioxide 31 Anion Gap 10 BUN 11 Creatinine 0.6 L Creat Clearance w eGFR > 60 POC Glucometer Random Glucose 156 H D Calcium 8.1 L Total Bilirubin 0.4 AST 20 D ALT 23 D Alkaline Phosphatase 245 H Total Protein 6.3 L Albumin 1.6 L Vancomycin Pre-Dose 2.888 L* Active Medications Generic Name Dose Route Start Last Admin Trade Name Freq PRN Reason Stop Dose Admin Acetaminophen 650 mg 09/25/16 21:50 Tylenol - PO Q4H PRN FEVER OR PAIN Fentanyl 25 mcg 09/30/16 10:41 Sublimaze Injection - IVPUSH 10/03/16 10:42 [id number] PRN PAIN Fentanyl 50 mcg 09/30/16 10:41 Sublimaze Injection - IVPUSH 10/03/16 10:42 [id number] PRN PAIN Heparin Sodium (Porcine) 5,000 unit 09/30/16 08:15 10/02/16 09:00 Heparin - SQ 10/06/16 08:14 5,000 unit BID BUTCH Administration Hydromorphone HCl 0.5 mg 09/30/16 10:41 Dilaudid Injection - IVPUSH 10/03/16 10:42 [id number] PRN PAIN Hydromorphone HCl 1 mg 10/02/16 08:37 Dilaudid Injection - IVPB Q3H PRN PAIN Vancomycin HCl 250 mls @ 166.667 mls/hr 09/26/16 10:00 10/02/16 09:57 Vancomycin (Pre-Docked) IVPB 166.667 mls/hr DAILY [facility] Administration Protocol Ampicillin Sodium 2 gm/ Sodium 100 mls @ 200 mls/hr 09/30/16 12:00 10/02/16 08: 43 Chloride IVPB 200 mls/hr Q6H-IV BUT[facility] Administration Insulin Aspart 0 vial 09/25/16 22:00 10/02/16 10:48 Novolog Vial Sliding Scale - SQ 6 units ACHS BUTCH Administration Protocol Ipratropium [place] 1 amp 09/30/16 12:00 10/02/16 06:28 Atrovent 0.02% Nebulizer - NEB 10/07/16 06:01 1 amp QIDR [facility] Administration Multivitamins/Minerals/Vitamin C 1 tab 09/28/16 10:00 10/02/16 09:00 Tab-A-Vit - PO 1 tab DAILY [facility] Administration ASSESSMENT/PLAN: 61 year-old man with a PMH of HLD and IDDM, admitted for sepsis secondary to CAP and empyema. Sepsis secondary to CAP complicated with empyema -s/p right VATS pneumolysis and partial decortication, fibrinous exudate was evaluated, diaphragm was freed, pleural biopsy was taken. -chest tubes x 2, draining -monitor I&O -pleural fluid culture positive for S. intermedius -continue Vancomycin and ampicillin, f/u ID recommendations -AFB negative x 3, -dilaudid for pain control PAPER PRODUCTS PRINTER pump can be changed today to PO or IV NIDDM Novolog sliding scale BGM F/E/N no/no changes/diabetic diet DVT prophylaxis: SCDs, will resume lovenox tomorrow Dispo:Can be transferred to med surg. Full Code. Visit type - Emergency Visit Emergency Visit: Yes ED Registration Date: 09/25/16 Care time: The patient presented to the Emergency Department on the above date and was hospitalized for further evaluation of their emergent condition. - New Patient This patient is new to me today: No - Critical Care Critical Care patient: Yes Total Critical Care Time (in minutes): 35 Critical Care Statement: The care of this patient involved high complexity decision making to prevent further life threatening deterioration of the patient 's condition and/or to evalute & treat vital organ system(s) failure or risk of failure.
[2016-10-02] MEDS ORDERED: VANCOMYCIN 1 GRAM (PRE-DOCKED) 250 ML IVPB SCH (11:15)
--- NOTE | 2016-10-02 11:16 | PN ---
Teaching Attending Note Name of Resident: Chikis Vera ATTENDING PHYSICIAN STATEMENT I saw and evaluated the patient. I reviewed the resident's note and discussed the case with the resident. I agree with the resident's findings and plan as documented. SUBJECTIVE: Pt seen and examined in the ICU. Pain adequately controlled on current regimen. No shortness of breath. No fevers or chills but with low grade fever this AM. OBJECTIVE: Last Vital Signs Temp Pulse Resp BP Pulse Ox 100.7 F H 107 H 20 103/76 99 10/02/16 10:00 10/02/16 10:06 10/02/16 10:00 10/02/16 10:00 10/02/16 10:06 Intake & Output 09/29/16 09/30/16 10/01/16 10/02/16 23:59 23:59 23:59 23:59 Intake Total 4478 7991 4384 152 Output Total 95 5538 2223 20 Balance 4383 2453 2161 132 Weight 134 lb 4.184 oz 135 lb 6.4 oz Gen: NAD in chair Heart: tachycardic, regular Lung: right base rales Abd: soft, nontender Ext: no edema Chest tube: serosanguinous drainage, no air leak CBC, BMP 10/02/16 05:15 10/02/16 05:15 Active Medications Acetaminophen (Tylenol -) 650 mg PO Q4H PRN PRN Reason: FEVER OR PAIN Fentanyl (Sublimaze Injection -) 25 mcg IVPUSH [id number] PRN PRN Reason: PAIN Stop: 10/03/16 10:42 Fentanyl (Sublimaze Injection -) 50 mcg IVPUSH [id number] PRN PRN Reason: PAIN Stop: 10/03/16 10:42 Heparin Sodium (Porcine) (Heparin -) 5,000 unit SQ BID BUT[facility] Stop: 10/06/16 08:14 Last Admin: 10/02/16 09:00 Dose: 5,000 unit Hydromorphone HCl (Dilaudid Injection -) 0.5 mg IVPUSH [id number] PRN PRN Reason: PAIN Stop: 10/03/16 10:42 Hydromorphone HCl (Dilaudid Injection -) 1 mg IVPB Q3H PRN PRN Reason: PAIN Ampicillin Sodium 2 gm/ Sodium (Chloride) 100 mls @ 200 mls/hr IVPB Q6H-IV BUT[facility] Last Admin: 10/02/16 08:43 Dose: 200 mls/hr Vancomycin HCl 1,000 mg/ (Dextrose) 250 mls @ 200 mls/hr IVPB Q12H BUT[facility] Insulin Aspart (Novolog Vial Sliding Scale -) 0 vial SQ ACHS BUT[facility] PRN Reason: Protocol Last Admin: 10/02/16 10:48 Dose: 6 units Ipratropium [place] (Atrovent 0.02% Nebulizer -) 1 amp NEB QIDR [facility] Stop: 10/07/16 06:01 Last Admin: 10/02/16 06:28 Dose: 1 amp Multivitamins/Minerals/Vitamin C (Tab-A-Vit -) 1 tab PO DAILY [facility] Last Admin: 10/02/16 09:00 Dose: 1 tab ASSESSMENT AND PLAN: Pneumonia Empyema s/p R VATS/partial decortication DM - antibiotics per ID - pain control - incentive spirometry - O2 as needed - monitor chest tube drainage - CT per thoracic surgery - DVT prophylaxis - can monitor on navarre Problem List - Problems (1) Pneumonia Code(s): J18.9 - PNEUMONIA, UNSPECIFIED ORGANISM (2) Pleural effusion Code(s): J90 - PLEURAL EFFUSION, NOT ELSEWHERE CLASSIFIED (3) Diabetes Code(s): E11.9 - TYPE 2 DIABETES MELLITUS WITHOUT COMPLICATIONS
--- NOTE | 2016-10-02 12:39 | PN ---
Physical Exam: SUBJECTIVE: Patient seen and examined in ICU. OOB to chair, states pain is tolerable. No cough today. Event: - Tmax 100.7 OBJECTIVE: Vital Signs Period Temp Pulse Resp BP Sys/Basurto Pulse Ox Last 24 Hr 99.3 F-100.7 F 83-107 14-21 103-128/50-80 96-100 PE Neuro: alert, awake, cn 2-12intact Pulm: R base with rales, L base clear x2 CT with serosanguinous drainage, drsg c /d/i CV: s1 s2 rrr no mrg Abd: s nt nd + bs Ext: warm, no le edema Laboratory Results - last 24 hr 10/01/16 10/01/16 10/02/16 17:02 22:17 05:15 WBC 11.4 H RBC 3.64 L Hgb 9.6 L Hct 28.7 L MCV 78.7 L MCHC 33.6 RDW 13.1 Plt Count 567 H MPV 6.7 L Sodium Potassium Chloride Carbon Dioxide Anion Gap BUN Creatinine Creat Clearance w eGFR POC Glucometer 349.44892 [phone] Random Glucose Calcium Total Bilirubin AST ALT Alkaline Phosphatase Total Protein Albumin Vancomycin Pre-Dose 10/02/16 08:59 Vancomycin Pre-Dose 2.888 L* Active Medications Generic Name Dose Route Start Last Admin Trade Name Freq PRN Reason Stop Dose Admin Acetaminophen 650 mg 09/25/16 21:50 Tylenol - PO Q4H PRN FEVER OR PAIN Fentanyl 25 mcg 09/30/16 10:41 Sublimaze Injection - IVPUSH 10/03/16 10:42 [id number] PRN PAIN Fentanyl 50 mcg 09/30/16 10:41 Sublimaze Injection - IVPUSH 10/03/16 10:42 [id number] PRN PAIN Heparin Sodium (Porcine) 5,000 unit 09/30/16 08:15 10/02/16 09:00 Heparin - SQ 10/06/16 08:14 5,000 unit BID BUTCH Administration Hydromorphone HCl 0.5 mg 09/30/16 10:41 Dilaudid Injection - IVPUSH 10/03/16 10:42 [id number] PRN PAIN Hydromorphone HCl 1 mg 10/02/16 08:37 Dilaudid Injection - IVPB Q3H PRN PAIN Ampicillin Sodium 2 gm/ Sodium 100 mls @ 200 mls/hr 09/30/16 12:00 10/02/16 08: 43 Chloride IVPB 200 mls/hr Q6H-IV [facility] Administration Vancomycin HCl 250 mls @ 200 mls/hr 10/02/16 11:15 10/02/16 11:25 Vancomycin (Pre-Docked) IVPB Not Given BID BUTCH Insulin Aspart 0 vial 09/25/16 22:00 10/02/16 10:48 Novolog Vial Sliding Scale - SQ 6 units ACHS BUTCH Administration Protocol Ipratropium [place] 1 amp 09/30/16 12:00 10/02/16 12:03 Atrovent 0.02% Nebulizer - NEB 10/07/16 06:01 1 amp QIDR BUT[facility] Administration Multivitamins/Minerals/Vitamin C 1 tab 09/28/16 10:00 10/02/16 09:00 Tab-A-Vit - PO 1 tab DAILY BUTCH Administration Imaging: - CT was suggestive of pericardial effusion but echo has no signs of pericardial effusion and is otherwise unremarkable Antibiotics: - Ertapenem (09/26-09/29) Assessment: 61 year old male with a PMH of HLD and IDDM, admitted for sepsis secondary to CAP and empyema. Plan: 1. Sepsis secondary to Streptococcus intermedius pneumonia - 09/30: Empyema s/p right VATS pneumolysis and partial decortication, chest tubes x 2 - Continue Vanc (day 7), ampicillin (day 3) - TB Gold pending, AFB negative x 3 - Dilaudid SALICYLIC ACID BLENDER discontinued - Dilaudid 1m q3 prn 2.Small pericardial effusion ruled out - No further work up per cards 3. DM II - ISS, BGM ACHS 4. Acute blood loss anemia - 2gm decrease, hgb stable - No signs of bleeding - Transfuse hgb <8 5. DVT ppx - Heparin BID Visit type - Emergency Visit Emergency Visit: Yes ED Registration Date: 09/25/16 Care time: The patient presented to the Emergency Department on the above date and was hospitalized for further evaluation of their emergent condition. - New Patient This patient is new to me today: No - Critical Care Critical Care patient: No
[2016-10-02] MEDS ORDERED: oxyCODONE HCL 5 MG TABLET PO PRN (12:41)
[2016-10-02] MEDS: DOCUSATE SODIUM 100 MG CAPSULE (FP) PO SCH ×2 (13:12→21:10)
[2016-10-02] MEDS: POLYETHYLENE GLYCOL 3350 119 GM BTL PO SCH (13:12)
[2016-10-02] MEDS ORDERED: HYDROmorphone HCL CARPU-JECT 1 MG/1 ML DISP.SYRIN IVPUSH PRN (16:50)
[2016-10-02] MEDS: INSULIN DETEMIR 100 UNITS/ML MDV SQ SCH (22:34)
[2016-10-02] MEDS: ACETAMINOPHEN 325 MG TABLET (FP) PO PRN (23:23)
[2016-10-03] MEDS: IPRATROPIUM BR 0.02% 0.5 MG/2.5 ML VIAL.NEB. NEB SCH ×5 (00:03→23:08)
[2016-10-03] MEDS: AMPICILLIN - 2 GM in SODIUM CHLORIDE 100 ML IVPB SCH ×4 (02:14→20:57)
[2016-10-03 06:40] LABS: BASOPHIL 0.3 % (0-2.0); EOSINOPHIL 1.2 % (0-4.5); MCH 26.2 pg (25.7-33.7); MCHC 33.3 g/dl (32.0-35.9); MEAN CELL VOLUME 78.7 fl (80-96); MEAN PLT VOLUME 6.5 fl (7.5-11.1); NEUTROPHILS 76.5 % (42.8-82.8); PLATELET COUNT 621 K/MM3 (134-434); RDW 13.5 % (11.9-15.9); WHITE BLOOD COUNT 11.4 K/mm3 (4.0-10.0)
[2016-10-03 07:14] LABS: ALBUMIN 1.6 g/dl (3.4-5.0); ANION GAP 4 (8-16); BILIRUBIN,TOTAL 0.4 mg/dL (0.2-1.0); CALCIUM 8.2 mg/dL (8.5-10.1); CO2 36 mmol/L (21-32); CREATININE 0.6 mg/dL (0.7-1.3); GLUCOSE,RANDOM 90 mg/dL (74-106); MAGNESIUM 1.7 mg/dL (1.8-2.4); SGOT/AST 29 U/L (15-37); SGPT/ALT 26 U/L (12-78); TOT PROT 6.6 g/dl (6.4-8.2)
[2016-10-03 07:15] LABS: ALK PHOS 247 U/L (45-117)
[2016-10-03] MEDS: INSULIN SLIDING SCALE (NOVOLOG) 1 VIAL SQ SCH ×4 (07:37→21:11)
--- NOTE | 2016-10-03 09:07 | PN ---
Progress Note (short form) - Note Progress Note: SUBJECTIVE: The patient was seen and examined in the ICU at the bedside, he is eating breakfast. He has no complaints at this time. Afebrile overnight 10/02/16 Chest Tube anterior: 12ml Chest Tube lateral: 24 ml Current Medications Generic Name Dose Route Start Last Admin Trade Name Freq PRN Reason Stop Dose Admin Acetaminophen 650 mg 10/02/16 16:50 10/02/16 23:23 Tylenol - PO 650 mg Q4H PRN Administration FEVER OR PAIN Docusate Sodium 100 mg 10/02/16 12:45 10/02/16 21:10 Colace - PO 100 mg BID BUTCH Administration Heparin Sodium (Porcine) 5,000 unit 10/02/16 22:00 10/02/16 21:10 Heparin - SQ 10/06/16 08:14 5,000 unit BID BUTCH Administration Hydromorphone HCl 1 mg 10/02/16 16:50 10/02/16 21:16 Dilaudid Injection - IVPB 1 mg Q3H PRN Administration PAIN Ampicillin Sodium 2 gm/ Sodium 100 mls @ 200 mls/hr 10/02/16 21:00 10/03/16 02: 14 Chloride IVPB 200 mls/hr Q6H-IV BUT[facility] Administration Vancomycin HCl 250 mls @ 200 mls/hr 10/02/16 22:00 10/02/16 21:04 Vancomycin (Pre-Docked) IVPB 200 mls/hr BID BUT[facility] Administration Insulin Aspart 1 vial 10/02/16 22:00 10/03/16 07:37 Novolog Vial Sliding Scale - SQ Not Given ACHS [facility] Protocol Insulin Detemir 10 units 10/02/16 22:00 10/02/16 22:34 Levemir Vial SQ 10 units HS BUTCH Administration Ipratropium [place] 1 amp 10/02/16 18:00 10/03/16 07:27 Atrovent 0.02% Nebulizer - NEB 10/07/16 06:01 1 amp QIDR BUT[facility] Administration Multivitamins/Minerals/Vitamin C 1 tab 10/03/16 10:00 Tab-A-Vit - PO DAILY BUT[facility] Oxycodone HCl 5 mg 10/02/16 12:41 Roxicodone - PO Q4H PRN PAIN Polyethylene Glycol 17 gm 10/02/16 12:45 10/02/16 13:12 Miralax (For Daily Use) - PO 17 grams DAILY BUTCH Administration OBJECTIVE: Vital Signs Period Temp Pulse Resp BP Sys/Basurto Pulse Ox Last 24 Hr 97.6 F-100.7 F 75-107 14-25 93-121/63-77 97-99 Physical Exam: General: NAD, A&Ox3 Lungs: Right lung with decreased breath sounds. Left lung with chest tube x2 Heart: RRR, S1S2 Abd: Soft, non-tender, non-distended. Normoactive bowel sounds Ext: Warm, well-perfused. 2+ DP/PT bilaterally Neuro: CN 2-12 intact CBCD WBC 11.4 K/mm3 (4.0-10.0) H 10/03/16 05:45 RBC 3.74 M/mm3 (4.00-5.60) L 10/03/16 05:45 Hgb 9.8 GM/dL (11.7-16.9) L 10/03/16 05:45 Hct 29.4 % (35.4-49) L 10/03/16 05:45 MCV 78.7 fl (80-96) L 10/03/16 05:45 MCHC 33.3 g/dl (32.0-35.9) 10/03/16 05:45 RDW 13.5 % (11.9-15.9) 10/03/16 05:45 Plt Count 621 K/MM3 (134-434) H 10/03/16 05:45 MPV 6.5 fl (7.5-11.1) L 10/03/16 05:45 CMP Sodium 136 mmol/L (136-145) 10/03/16 05:45 Potassium 3.9 mmol/L (3.5-5.1) 10/03/16 05:45 Chloride 96 mmol/L (98-107) L 10/03/16 05:45 Carbon Dioxide 36 mmol/L (21-32) H 10/03/16 05:45 Anion Gap 4 (8-16) L 10/03/16 05:45 BUN 12 mg/dL (7-18) 10/03/16 05:45 Creatinine 0.6 mg/dL (0.7-1.3) L 10/03/16 05:45 Creat Clearance w eGFR > 60 (>60) 10/03/16 05:45 Random Glucose 90 mg/dL (74-106) D 10/03/16 05:45 Calcium 8.2 mg/dL (8.5-10.1) L 10/03/16 05:45 Total Bilirubin 0.4 mg/dL (0.2-1.0) 10/03/16 05:45 AST 29 U/L (15-37) D 10/03/16 05:45 ALT 26 U/L (12-78) 10/03/16 05:45 Alkaline Phosphatase 247 U/L (45-117) H 10/03/16 05:45 Total Protein 6.6 g/dl (6.4-8.2) 10/03/16 05:45 Albumin 1.6 g/dl (3.4-5.0) L 10/03/16 05:45 Microbiology 09/30/16 09:15 Lung - Right Gram Stain - Final 09/30/16 09:15 Lung - Right Tissue Culture - Preliminary NO AEROBIC GROWTH, 24 HRS 09/30/16 09:15 Lung - Right AFB Smear Concentration - Preliminary 09/30/16 09:15 Lung - Right Mycobacterial Culture - Preliminary 09/25/16 16:35 Blood - Peripheral Venous Blood Culture - Final NO GROWTH AFTER 5 DAYS INCUBATION 09/25/16 16:35 Blood - Peripheral Venous Blood Culture - Final NO GROWTH AFTER 5 DAYS INCUBATION 09/27/16 11:40 Sputum - Expectorated AFB Smear Concentration - Preliminary 09/27/16 11:40 Sputum - Expectorated Direct Acid Fast Bacilli Smear - Final 09/27/16 11:40 Sputum - Expectorated Mycobacterial Culture - Preliminary 09/28/16 12:00 Sputum - Expectorated AFB Smear Concentration - Preliminary 09/28/16 12:00 Sputum - Expectorated Direct Acid Fast Bacilli Smear - Final 09/28/16 12:00 Sputum - Expectorated Mycobacterial Culture - Preliminary 09/30/16 09:15 Lung - Right LINDA Preparation - Preliminary 09/30/16 09:15 Lung - Right Fungal Culture - Preliminary 09/26/16 06:45 Blood - Peripheral Venous TB Test (QFT) ([facility]) - Preliminary 09/26/16 12:30 Pleural Fluid Gram Stain - Final 09/26/16 12:30 Pleural Fluid Body Fluid Culture - Final Streptococcus Intermedius 09/26/16 12:30 Pleural Fluid Anaerobic Culture - Final NO ANAEROBES WERE ISOLATED 09/26/16 12:30 Pleural Fluid AFB Smear Concentration - Final 09/26/16 12:30 Pleural Fluid Mycobacterial Culture - Preliminary 09/26/16 10:47 Sputum - Expectorated AFB Smear Concentration - Final 09/26/16 10:47 Sputum - Expectorated Direct Acid Fast Bacilli Smear - Final 09/26/16 10:47 Sputum - Expectorated Mycobacterial Culture - Preliminary 09/28/16 12:00 Urine For Antigen Detection Legionella Antigen - Final 09/28/16 12:00 Urine For Antigen Detection Streptococcus pneumoniae Antigen (M - Final 09/25/16 15:15 Urine - Urine Clean Catch Urine Culture - Final 09/26/16 12:30 Pleural Fluid LINDA Preparation - Preliminary 09/26/16 12:30 Pleural Fluid Fungal Culture - Preliminary Imaging: - CT was suggestive of pericardial effusion but echo has no signs of pericardial effusion and is otherwise unremarkable Antibiotics: - Ertapenem (09/26-09/29) Assessment: This is a 61 year old male with PMHx of HLD, IDDM who presented to the ED with chills, productive cough, night sweats, constipation and dysuria. Plan: 1) Sepsis 2/2 stretococcus intermedius pneumonia - S/p Right VATS, pneumolysis, and partial decrotication on 09/30 - Remains with chest tubes x2 - Continue Vancomycin (09/26- ) - Continue Ampicillin (09/30- ) - F/u quant gold - AFB from right lung pending - Appreciate ID consult - Appreciate pulmonary consult - Appreciate ct surgery consult 2) Heme: Acute blood loss anemia - Hgb remains stable - Continue to trend 3) Endocrine: IDDM - Levemir 10u sq qhs - BGM ACHS - ISS ACHS 4) F/E/N: - Diabetic diet - Hypomagnesemia: replete 5) Prophylaxis: - Heparin 5,000u sq bid - OOB to chair 6) Dispo: - Requires continued ICU care CODE STATUS: FULL CODE Visit type - Emergency Visit Emergency Visit: Yes ED Registration Date: 09/25/16 Care time: The patient presented to the Emergency Department on the above date and was hospitalized for further evaluation of their emergent condition. - New Patient This patient is new to me today: Yes Date on this admission: 10/03/16 - Critical Care Critical Care patient: No
[2016-10-03] MEDS ORDERED: MAGNESIUM OXIDE 400 MG TABLET (FP) PO ONE (09:15)
[2016-10-03] MEDS ORDERED: PT OWN MED DRAWER 7, Y5N ONE (09:37)
[2016-10-03] MEDS: DOCUSATE SODIUM 100 MG CAPSULE (FP) PO SCH ×2 (09:54→21:04)
[2016-10-03] MEDS: HEPARIN NA (PORCINE) 5,000 UNITS/ML 1ML VIAL SQ SCH ×2 (09:54→21:04)
[2016-10-03] MEDS: POLYETHYLENE GLYCOL 3350 119 GM BTL PO SCH (09:55)
[2016-10-03] MEDS: VANCOMYCIN 1 GRAM (PRE-DOCKED) 250 ML IVPB SCH ×2 (09:55→21:58)
[2016-10-03] MEDS: MULTIVITAMINS (DAILY MVI) TABLET (FP) PO SCH (09:55)
--- NOTE | 2016-10-03 11:52 | PN ---
Teaching Attending Note Name of Resident: Chikis Vera ATTENDING PHYSICIAN STATEMENT I saw and evaluated the patient. I reviewed the resident's note and discussed the case with the resident. I agree with the resident's findings and plan as documented. SUBJECTIVE: Pt seen and examined in the ICU. Pain controlled with current regimen. No shortness of breath. No fevers or chills. OBJECTIVE: Last Vital Signs Temp Pulse Resp BP Pulse Ox 98.0 F 88 19 101/65 98 10/03/16 10:00 10/03/16 10:00 10/03/16 10:00 10/03/16 10:00 10/03/16 07:59 Intake & Output 09/30/16 10/01/16 10/02/16 10/03/16 23:59 23:59 23:59 23:59 Intake Total 7991 4384 1734 100 Output Total 5538 2223 2436 512 Balance 2453 2161 -702 -412 Weight 134 lb 4.184 oz 135 lb 6.4 oz 129 lb 11.2 oz Gen: NAD at rest Heart: RRR Lung: right base rales Abd: soft, nontender Ext: no edema Chest tube: serosanguinous drainage, no air leak CBC, BMP 10/03/16 05:45 10/03/16 05:45 Active Medications Acetaminophen (Tylenol -) 650 mg PO Q4H PRN PRN Reason: FEVER OR PAIN Last Admin: 10/02/16 23:23 Dose: 650 mg Docusate Sodium (Colace -) 100 mg PO BID [facility] Last Admin: 10/03/16 09:54 Dose: 100 mg Heparin Sodium (Porcine) (Heparin -) 5,000 unit SQ BID [facility] Stop: 10/06/16 08:14 Last Admin: 10/03/16 09:54 Dose: 5,000 unit Hydromorphone HCl (Dilaudid Injection -) 1 mg IVPB Q3H PRN PRN Reason: PAIN Last Admin: 10/02/16 21:16 Dose: 1 mg Ampicillin Sodium 2 gm/ Sodium (Chloride) 100 mls @ 200 mls/hr IVPB Q6H-IV [facility] Last Admin: 10/03/16 09:52 Dose: 200 mls/hr Vancomycin HCl (Vancomycin (Pre-Docked)) 250 mls @ 200 mls/hr IVPB BID [facility] Last Admin: 10/03/16 09:55 Dose: 200 mls/hr Insulin Aspart (Novolog Vial Sliding Scale -) 1 vial SQ ACHS BUT[facility] PRN Reason: Protocol Last Admin: 10/03/16 11:25 Dose: 8 units Insulin Detemir (Levemir Vial) 10 units SQ HS [facility] Last Admin: 10/02/16 22:34 Dose: 10 units Ipratropium [place] (Atrovent 0.02% Nebulizer -) 1 amp NEB QIDR [facility] Stop: 10/07/16 06:01 Last Admin: 10/03/16 11:18 Dose: 1 amp Multivitamins/Minerals/Vitamin C (Tab-A-Vit -) 1 tab PO DAILY [facility] Last Admin: 10/03/16 09:55 Dose: 1 tab Oxycodone HCl (Roxicodone -) 5 mg PO Q4H PRN PRN Reason: PAIN Polyethylene Glycol (Miralax (For Daily Use) -) 17 gm PO DAILY [facility] Last Admin: 10/03/16 09:55 Dose: 17 grams ASSESSMENT AND PLAN: Pneumonia Empyema s/p R VATS/partial decortication DM - antibiotics per ID - pain control - incentive spirometry - O2 as needed - monitor chest tube drainage - CT per thoracic surgery - DVT prophylaxis - can monitor on Problem List - Problems (1) Pneumonia Code(s): J18.9 - PNEUMONIA, UNSPECIFIED ORGANISM (2) Pleural effusion Code(s): J90 - PLEURAL EFFUSION, NOT ELSEWHERE CLASSIFIED (3) Diabetes Code(s): E11.9 - TYPE 2 DIABETES MELLITUS WITHOUT COMPLICATIONS
--- NOTE | 2016-10-03 12:16 | PN ---
Physical Exam: SUBJECTIVE: Patient seen and examined. He is feeling the same as yesterday. No overnight events. OBJECTIVE: Vital Signs Period Temp Pulse Resp BP Sys/Basurto Pulse Ox Last 24 Hr 97.6 F-99.9 F 75-107 14-25 93-121/63-77 97-99 GENERAL: The patient is awake, alert, and fully oriented, in no acute distress. HEAD: Normal with no signs of trauma. EYES: extraocular movements intact, sclera anicteric, conjunctiva clear. ENT:oropharynx clear without exudates, moist mucous membranes. NECK: Trachea midline, full range of motion, supple. LUNGS: Diminished breath sounds on right side, crackles, no accessory muscle use , 2 chest tubes draining serosanguineous fluid. HEART: Regular rate and rhythm, S1, S2 without murmur, rub or gallop. ABDOMEN: Soft, nontender, nondistended, normoactive bowel sounds, no guarding, no rebound, no hepatosplenomegaly, no masses. EXTREMITIES: warm, well-perfused, no edema. NEUROLOGICAL: No facial asymmetry. Normal speech, gait not observed. PSYCH: Normal mood, normal affect. SKIN: Warm, dry, normal turgor, no rashes. Laboratory Results - last 24 hr 10/02/16 10/02/16 10/03/16 16:09 22:30 05:24 WBC RBC Hgb Hct MCV MCHC RDW Plt Count MPV Neutrophils % Lymphocytes % Monocytes % Eosinophils % Basophils % Sodium Potassium Chloride Carbon Dioxide Anion Gap BUN Creatinine Creat Clearance w eGFR POC Glucometer > 400 331.93138 94.88655 Random Glucose Calcium Magnesium Total Bilirubin AST ALT Alkaline Phosphatase Total Protein Albumin 10/03/16 10/03/16 10/03/16 05:45 05:45 11:16 WBC 11.4 H RBC 3.74 L Hgb 9.8 L Hct 29.4 L MCV 78.7 L MCHC 33.3 RDW 13.5 Plt Count 621 H MPV 6.5 L Neutrophils % 76.5 Lymphocytes % 14.6 D Monocytes % 7.4 D Eosinophils % 1.2 D Basophils % 0.3 D Sodium 136 Potassium 3.9 Chloride 96 L Carbon Dioxide 36 H Anion Gap 4 L BUN 12 Creatinine 0.6 L Creat Clearance w eGFR > 60 POC Glucometer [phone] Random Glucose 90 D Calcium 8.2 L Magnesium 1.7 L Total Bilirubin 0.4 AST 29 D ALT 26 Alkaline Phosphatase 247 H Total Protein 6.6 Albumin 1.6 L Active Medications Generic Name Dose Route Start Last Admin Trade Name Freq PRN Reason Stop Dose Admin Acetaminophen 650 mg 10/02/16 16:50 10/02/16 23:23 Tylenol - PO 650 mg Q4H PRN Administration FEVER OR PAIN Docusate Sodium 100 mg 10/02/16 12:45 10/03/16 09:54 Colace - PO 100 mg BID BUTCH Administration Heparin Sodium (Porcine) 5,000 unit 10/02/16 22:00 10/03/16 09:54 Heparin - SQ 10/06/16 08:14 5,000 unit BID BUTCH Administration Hydromorphone HCl 1 mg 10/02/16 16:50 10/02/16 21:16 Dilaudid Injection - IVPB 1 mg Q3H PRN Administration PAIN Ampicillin Sodium 2 gm/ Sodium 100 mls @ 200 mls/hr 10/02/16 21:00 10/03/16 09: 52 Chloride IVPB 200 mls/hr Q6H-IV [facility] Administration Vancomycin HCl 250 mls @ 200 mls/hr 10/02/16 22:00 10/03/16 09:55 Vancomycin (Pre-Docked) IVPB 200 mls/hr BID BUT[facility] Administration Insulin Aspart 1 vial 10/02/16 22:00 10/03/16 11:25 Novolog Vial Sliding Scale - SQ 8 units ACHS [facility] Administration Protocol Insulin Detemir 10 units 10/02/16 22:00 10/02/16 22:34 Levemir Vial SQ 10 units HS BUT[facility] Administration Ipratropium [place] 1 amp 10/02/16 18:00 10/03/16 11:18 Atrovent 0.02% Nebulizer - NEB 10/07/16 06:01 1 amp QIDR BUT[facility] Administration Multivitamins/Minerals/Vitamin C 1 tab 10/03/16 10:00 10/03/16 09:55 Tab-A-Vit - PO 1 tab DAILY BUT[facility] Administration Oxycodone HCl 5 mg 10/02/16 12:41 Roxicodone - PO Q4H PRN PAIN Polyethylene Glycol 17 gm 10/02/16 12:45 10/03/16 09:55 Miralax (For Daily Use) - PO 17 grams DAILY BUT[facility] Administration ASSESSMENT/PLAN: 61 year-old man with a PMH of HLD and IDDM, admitted for sepsis secondary to CAP and empyema. Sepsis secondary to CAP complicated with empyema -s/p right VATS pneumolysis and partial decortication, fibrinous exudate was evaluated, diaphragm was freed, pleural biopsy was taken. -chest tubes x 2, draining anterior 0 ml, and lateral 12 ml -monitor I&O -pleural fluid culture positive for S. intermedius -continue Vancomycin and ampicillin, f/u ID recommendations -AFB negative x 3, -dilaudid for pain control 1 mg IV Q3 RRN -leukocytosis possibly due to steroids, will continue current dose NIDDM -Novolog sliding scale -BGM F/E/N no/no changes/diabetic diet DVT prophylaxis: SCDs, will resume lovenox tomorrow Dispo:Can be transferred to med surg. Full Code. Visit type - Emergency Visit Emergency Visit: Yes ED Registration Date: 09/25/16 Care time: The patient presented to the Emergency Department on the above date and was hospitalized for further evaluation of their emergent condition. - New Patient This patient is new to me today: No - Critical Care Critical Care patient: Yes Total Critical Care Time (in minutes): 40 Critical Care Statement: The care of this patient involved high complexity decision making to prevent further life threatening deterioration of the patient 's condition and/or to evalute & treat vital organ system(s) failure or risk of failure.
[2016-10-03] MEDS: HYDROmorphone *PCA* 10MG/50ML DISP.SYRIN PCA SCH (16:10)
--- NOTE | 2016-10-03 19:12 | PN ---
Progress Note (short form) - Note Progress Note: Thoracic Attending: POD #3: doing well. Pleuritic pain. Ambulating. Effective dry cough. AF, WBC near-normal. PLTS increasing but don't seem clinically relevant. CXR improving. CT minimal drainage, no leak. Water sealed. CXR in AM and remove tube #2 (posterior on skin and apical) if CXR relatively stable. Possibly remove second tube in afternoon. DC this or Friday on abx (per ID) and percocet for pain.
--- NOTE | 2016-10-03 20:37 | PN ---
Progress Note, Physician History of Present Illness: OOB in chair C/O R sided chest pain with cough No fever/ chills - Current Medication List Current Medications: Active Medications Acetaminophen (Tylenol -) 650 mg PO Q4H PRN PRN Reason: FEVER OR PAIN Last Admin: 10/02/16 23:23 Dose: 650 mg Docusate Sodium (Colace -) 100 mg PO BID [facility] Last Admin: 10/03/16 09:54 Dose: 100 mg Heparin Sodium (Porcine) (Heparin -) 5,000 unit SQ BID [facility] Stop: 10/06/16 08:14 Last Admin: 10/03/16 09:54 Dose: 5,000 unit Hydromorphone HCl (Dilaudid Injection -) 1 mg IVPB Q3H PRN PRN Reason: PAIN Last Admin: 10/02/16 21:16 Dose: 1 mg Ampicillin Sodium 2 gm/ Sodium (Chloride) 100 mls @ 200 mls/hr IVPB Q6H-IV [facility] Last Admin: 10/03/16 14:55 Dose: 200 mls/hr Vancomycin HCl (Vancomycin (Pre-Docked)) 250 mls @ 200 mls/hr IVPB BID [facility] Last Admin: 10/03/16 09:55 Dose: 200 mls/hr Insulin Aspart (Novolog Vial Sliding Scale -) 1 vial SQ ACHS [facility] PRN Reason: Protocol Last Admin: 10/03/16 18:12 Dose: 2 units Insulin Detemir (Levemir Vial) 10 units SQ HS [facility] Last Admin: 10/02/16 22:34 Dose: 10 units Ipratropium [place] (Atrovent 0.02% Nebulizer -) 1 amp NEB QIDR [facility] Stop: 10/07/16 06:01 Last Admin: 10/03/16 18:07 Dose: 1 amp Multivitamins/Minerals/Vitamin C (Tab-A-Vit -) 1 tab PO DAILY [facility] Last Admin: 10/03/16 09:55 Dose: 1 tab Oxycodone HCl (Roxicodone -) 5 mg PO Q4H PRN PRN Reason: PAIN Polyethylene Glycol (Miralax (For Daily Use) -) 17 gm PO DAILY [facility] Last Admin: 10/03/16 09:55 Dose: 17 grams - Objective Vital Signs: Vital Signs Temperature 99.8 F H 10/03/16 17:06 Pulse Rate 101 H 10/03/16 17:06 Respiratory Rate 20 10/03/16 17:06 Blood Pressure 107/62 10/03/16 17:06 O2 Sat by Pulse Oximetry (%) 98 10/03/16 07:59 Constitutional: Yes: No Distress Cardiovascular: Yes: Regular Rate and Rhythm, S1, S2 Respiratory: Yes: Other (crepitations R base) Gastrointestinal: Yes: Normal Bowel Sounds, Soft Edema: No Labs: CBC, BMP 10/03/16 05:45 10/03/16 05:45 INR, PTT INR 1.22 (0.82-1.09) H 09/30/16 06:00 Assessment/Plan Post op Bronch, R VATS, partial decortication Empyema, strep anginosis Continue vancomycin/ ampicillin
[2016-10-03] MEDS ORDERED: AMPICILLIN SODIUM 2 GM VIAL ONE (20:46)
[2016-10-03] MEDS ORDERED: SODIUM CHLORIDE 100 ML IVPB ONE (20:47)
[2016-10-03] MEDS: ACETAMINOPHEN 325 MG TABLET (FP) PO PRN (20:57)
[2016-10-03] MEDS: INSULIN DETEMIR 100 UNITS/ML MDV SQ SCH (21:12)
[2016-10-04] MEDS ORDERED: AMPICILLIN SODIUM 2 GM VIAL ONE (01:31)
[2016-10-04] MEDS ORDERED: SODIUM CHLORIDE 100 ML IVPB ONE (01:32)
[2016-10-04] MEDS: AMPICILLIN - 2 GM in SODIUM CHLORIDE 100 ML IVPB SCH ×4 (03:04→21:00)
[2016-10-04] MEDS: IPRATROPIUM BR 0.02% 0.5 MG/2.5 ML VIAL.NEB. NEB SCH ×3 (06:10→17:42)
[2016-10-04] MEDS: INSULIN SLIDING SCALE (NOVOLOG) 1 VIAL SQ SCH ×4 (06:14→22:20)
[2016-10-04 07:32] LABS: MCH 27.2 pg (25.7-33.7); MCHC 34.5 g/dl (32.0-35.9); MEAN CELL VOLUME 78.8 fl (80-96); MEAN PLT VOLUME 6.4 fl (7.5-11.1); PLATELET COUNT 572 K/MM3 (134-434); RDW 13.7 % (11.9-15.9); WHITE BLOOD COUNT 8.7 K/mm3 (4.0-10.0)
--- NOTE | 2016-10-04 07:55 | PN ---
Progress Note (short form) - Note Progress Note: Surgery- Dr. Hsieh Patient seen and examined, doing well. Last Vital Signs Temp Pulse Resp BP Pulse Ox 99.1 F 99 H 18 108/67 98 10/03/16 22:00 10/03/16 22:00 10/03/16 22:00 10/03/16 22:00 10/03/16 21:00 CBC, BMP 10/04/16 06:15 CMP pending CXR reviewed Exam: Gen: NAD Resp: Chest tubes in place with serosanguineous drainage on water seal, posterior chest tube removed intact on rounds without issue, patient tolerated well Problem List - Problems (1) Empyema Assessment/Plan: POD#4 s/p Bronchoscopy, right VATS, pneumolysis, partial decortication Patient discussed with Dr. Hsieh posterior chest tube removed on rounds f/u post-pull chest xray in 2 hours anterior chest tube to water seal daily CXR Oral pain control abx per ID Code(s): J86.9 - PYOTHORAX WITHOUT FISTULA
[2016-10-04 08:02] LABS: ALBUMIN 1.6 g/dl (3.4-5.0); ANION GAP 7 (8-16); BILIRUBIN,TOTAL 0.3 mg/dL (0.2-1.0); CALCIUM 8.3 mg/dL (8.5-10.1); CO2 32 mmol/L (21-32); GLUCOSE,RANDOM 98 mg/dL (74-106); SGOT/AST 29 U/L (15-37); SGPT/ALT 30 U/L (12-78)
[2016-10-04 08:03] LABS: ALK PHOS 270 U/L (45-117); CREATININE 0.6 mg/dL (0.7-1.3); TOT PROT 6.8 g/dl (6.4-8.2)
--- NOTE | 2016-10-04 10:07 | PN ---
Progress Note, Physician History of Present Illness: OOB in chair Reports less R chest pain No c/o dyspnea Low grade temp WBC WNL - Current Medication List Current Medications: Active Medications Acetaminophen (Tylenol -) 650 mg PO Q4H PRN PRN Reason: FEVER OR PAIN Last Admin: 10/03/16 20:57 Dose: 650 mg Docusate Sodium (Colace -) 100 mg PO BID [facility] Last Admin: 10/03/16 21:04 Dose: 100 mg Heparin Sodium (Porcine) (Heparin -) 5,000 unit SQ BID [facility] Stop: 10/06/16 08:14 Last Admin: 10/03/16 21:04 Dose: 5,000 unit Hydromorphone HCl (Dilaudid Injection -) 1 mg IVPB Q3H PRN PRN Reason: PAIN Last Admin: 10/02/16 21:16 Dose: 1 mg Ampicillin Sodium 2 gm/ Sodium (Chloride) 100 mls @ 200 mls/hr IVPB Q6H-IV [facility] Last Admin: 10/04/16 03:04 Dose: 200 mls/hr Vancomycin HCl (Vancomycin (Pre-Docked)) 250 mls @ 200 mls/hr IVPB BID [facility] Last Admin: 10/03/16 21:58 Dose: 200 mls/hr Insulin Aspart (Novolog Vial Sliding Scale -) 1 vial SQ ACHS [facility] PRN Reason: Protocol Last Admin: 10/04/16 06:14 Dose: 4 units Insulin Detemir (Levemir Vial) 10 units SQ HS [facility] Last Admin: 10/03/16 21:12 Dose: 10 units Ipratropium [place] (Atrovent 0.02% Nebulizer -) 1 amp NEB QIDR [facility] Stop: 10/07/16 06:01 Last Admin: 10/04/16 06:10 Dose: 1 amp Multivitamins/Minerals/Vitamin C (Tab-A-Vit -) 1 tab PO DAILY [facility] Last Admin: 10/03/16 09:55 Dose: 1 tab Oxycodone HCl (Roxicodone -) 5 mg PO Q4H PRN PRN Reason: PAIN Last Admin: 10/03/16 20:52 Dose: 5 mg Polyethylene Glycol (Miralax (For Daily Use) -) 17 gm PO DAILY [facility] Last Admin: 10/03/16 09:55 Dose: 17 grams - Objective Vital Signs: Vital Signs Temperature 99.1 F 10/03/16 22:00 Pulse Rate 99 H 10/03/16 22:00 Respiratory Rate 18 10/03/16 22:00 Blood Pressure 108/67 10/03/16 22:00 O2 Sat by Pulse Oximetry (%) 98 10/03/16 21:00 Constitutional: Yes: No Distress Eyes: Yes: Conjunctiva Clear Cardiovascular: Yes: Regular Rate and Rhythm, S1, S2 Respiratory: Yes: Diminished, Other (decreased BS R lung field Chest tube in place) Gastrointestinal: Yes: Normal Bowel Sounds, Soft. No: Tenderness Edema: No Labs: CBC, BMP 10/04/16 06:15 10/04/16 06:15 INR, PTT INR 1.22 (0.82-1.09) H 09/30/16 06:00 Assessment/Plan Post op Bronch, R VATS, partial decortication Empyema, strep anginosis Continue vancomycin/ ampicillin
[2016-10-04] MEDS: VANCOMYCIN 1 GRAM (PRE-DOCKED) 250 ML IVPB SCH ×2 (10:37→21:47)
[2016-10-04] MEDS: DOCUSATE SODIUM 100 MG CAPSULE (FP) PO SCH ×2 (10:37→21:48)
[2016-10-04] MEDS: HEPARIN NA (PORCINE) 5,000 UNITS/ML 1ML VIAL SQ SCH ×2 (10:38→21:48)
[2016-10-04] MEDS: MULTIVITAMINS (DAILY MVI) TABLET (FP) PO SCH (10:38)
[2016-10-04] MEDS: POLYETHYLENE GLYCOL 3350 119 GM BTL PO SCH (10:41)
[2016-10-04] MEDS ORDERED: PT OWN MED DRAWER 7, Y5N ONE (11:30)
[2016-10-04] MEDS ORDERED: INSULIN (NOVOLOG) ASPART 100 UNITS/ML 10ML VIAL ONE (12:40)
--- NOTE | 2016-10-04 14:52 | PN ---
Progress Note, Physician History of Present Illness: pulmonary alert,nad,-sob,-cough,less cp. chest tube removed - Current Medication List Current Medications: Active Medications Acetaminophen (Tylenol -) 650 mg PO Q4H PRN PRN Reason: FEVER OR PAIN Last Admin: 10/03/16 20:57 Dose: 650 mg Docusate Sodium (Colace -) 100 mg PO BID [facility] Last Admin: 10/04/16 10:37 Dose: 100 mg Heparin Sodium (Porcine) (Heparin -) 5,000 unit SQ BID [facility] Stop: 10/06/16 08:14 Last Admin: 10/04/16 10:38 Dose: 5,000 unit Hydromorphone HCl (Dilaudid Injection -) 1 mg IVPB Q3H PRN PRN Reason: PAIN Last Admin: 10/02/16 21:16 Dose: 1 mg Ampicillin Sodium 2 gm/ Sodium (Chloride) 100 mls @ 200 mls/hr IVPB Q6H-IV [facility] Last Admin: 10/04/16 10:00 Dose: Not Given Vancomycin HCl (Vancomycin (Pre-Docked)) 250 mls @ 200 mls/hr IVPB BID [facility] Last Admin: 10/04/16 10:37 Dose: 200 mls/hr Insulin Aspart (Novolog Vial Sliding Scale -) 1 vial SQ ACHS [facility] PRN Reason: Protocol Last Admin: 10/04/16 12:48 Dose: 10 units Insulin Detemir (Levemir Vial) 10 units SQ HS [facility] Last Admin: 10/03/16 21:12 Dose: 10 units Ipratropium [place] (Atrovent 0.02% Nebulizer -) 1 amp NEB QIDR [facility] Stop: 10/07/16 06:01 Last Admin: 10/04/16 11:55 Dose: 1 amp Multivitamins/Minerals/Vitamin C (Tab-A-Vit -) 1 tab PO DAILY [facility] Last Admin: 10/04/16 10:38 Dose: 1 tab Oxycodone HCl (Roxicodone -) 5 mg PO Q4H PRN PRN Reason: PAIN Last Admin: 10/03/16 20:52 Dose: 5 mg Polyethylene Glycol (Miralax (For Daily Use) -) 17 gm PO DAILY [facility] Last Admin: 10/04/16 10:41 Dose: 17 grams - Objective Vital Signs: Vital Signs Temperature 98.4 F 10/04/16 10:00 Pulse Rate 94 H 10/04/16 10:00 Respiratory Rate 16 10/04/16 10:00 Blood Pressure 115/70 10/04/16 10:00 O2 Sat by Pulse Oximetry (%) 98 10/03/16 21:00 Constitutional: Yes: Calm, Thin Eyes: Yes: WNL HENT: Yes: WNL Neck: Yes: WNL Cardiovascular: Yes: Regular Rate and Rhythm, S1, S2 Respiratory: Yes: CTA Bilaterally, Diminished Gastrointestinal: Yes: Normal Bowel Sounds, Soft Extremities: Yes: WNL Edema: No Labs: CBC, BMP 10/04/16 06:15 10/04/16 06:15 INR, PTT INR 1.22 (0.82-1.09) H 09/30/16 06:00 Assessment/Plan ASSESSMENT AND PLAN: Pneumonia Empyema s/p R VATS/partial decortication DM - antibiotics per ID - pain control - incentive spirometry - O2 as needed - DVT prophylaxis DR BEARD Problem List - Problems (1) Pneumonia Code(s): J18.9 - PNEUMONIA, UNSPECIFIED ORGANISM (2) Pleural effusion Code(s): J90 - PLEURAL EFFUSION, NOT ELSEWHERE CLASSIFIED (3) Diabetes Code(s): E11.9 - TYPE 2 DIABETES MELLITUS WITHOUT COMPLICATIONS
[2016-10-04] MEDS: INSULIN DETEMIR 100 UNITS/ML MDV SQ SCH (22:21)
[2016-10-05] MEDS: IPRATROPIUM BR 0.02% 0.5 MG/2.5 ML VIAL.NEB. NEB SCH ×4 (00:10→17:29)
[2016-10-05] MEDS: AMPICILLIN - 2 GM in SODIUM CHLORIDE 100 ML IVPB SCH ×5 (02:42→22:42)
[2016-10-05] MEDS: INSULIN SLIDING SCALE (NOVOLOG) 1 VIAL SQ SCH ×4 (06:13→22:02)
[2016-10-05 08:35] LABS: BASOPHIL 0.4 % (0-2.0); EOSINOPHIL 1.4 % (0-4.5); MCH 27.1 pg (25.7-33.7); MCHC 34.6 g/dl (32.0-35.9); MEAN CELL VOLUME 78.2 fl (80-96); MEAN PLT VOLUME 6.8 fl (7.5-11.1); PLATELET COUNT 562 K/MM3 (134-434); RDW 13.6 % (11.9-15.9)
[2016-10-05 08:58] LABS: ALBUMIN 1.7 g/dl (3.4-5.0); ANION GAP 12 (8-16); CALCIUM 8.4 mg/dL (8.5-10.1); CO2 28 mmol/L (21-32); GLUCOSE,RANDOM 72 mg/dL (74-106); SGPT/ALT 29 U/L (12-78)
[2016-10-05] MEDS: VANCOMYCIN 1 GRAM (PRE-DOCKED) 250 ML IVPB SCH ×2 (09:00→22:41)
[2016-10-05 09:01] LABS: ALK PHOS 275 U/L (45-117); BILIRUBIN,TOTAL 0.5 mg/dL (0.2-1.0); CREATININE 0.6 mg/dL (0.7-1.3); SGOT/AST 29 U/L (15-37); TOT PROT 6.9 g/dl (6.4-8.2)
[2016-10-05] MEDS: MULTIVITAMINS (DAILY MVI) TABLET (FP) PO SCH (09:55)
[2016-10-05] MEDS: DOCUSATE SODIUM 100 MG CAPSULE (FP) PO SCH ×2 (09:55→22:41)
[2016-10-05] MEDS: POLYETHYLENE GLYCOL 3350 119 GM BTL PO SCH (09:55)
[2016-10-05] MEDS: HEPARIN NA (PORCINE) 5,000 UNITS/ML 1ML VIAL SQ SCH ×2 (09:55→22:41)
[2016-10-05] MEDS ORDERED: PT OWN MED DRAWER 7, Y5N ONE ×2 (12:13→19:40)
--- NOTE | 2016-10-05 18:54 | PN ---
Progress Note (short form) - Note Progress Note: SUBJECTIVE: The patient was seen and examined at the bedside, no complaints at this time Afebrile overnight Chest tubes x2 discontinued Current Medications Generic Name Dose Route Start Last Admin Trade Name Freq PRN Reason Stop Dose Admin Acetaminophen 650 mg 10/02/16 16:50 10/03/16 20:57 Tylenol - PO 650 mg Q4H PRN Administration FEVER OR PAIN Docusate Sodium 100 mg 10/02/16 12:45 10/04/16 10:37 Colace - PO 100 mg BID [facility] Administration Heparin Sodium (Porcine) 5,000 unit 10/02/16 22:00 10/04/16 10:38 Heparin - SQ 10/06/16 08:14 5,000 unit BID BUT[facility] Administration Hydromorphone HCl 1 mg 10/02/16 16:50 10/02/16 21:16 Dilaudid Injection - IVPB 1 mg Q3H PRN Administration PAIN Ampicillin Sodium 2 gm/ Sodium 100 mls @ 200 mls/hr 10/02/16 21:00 10/04/16 14: 49 Chloride IVPB 200 mls/hr Q6H-IV [facility] Administration Vancomycin HCl 250 mls @ 200 mls/hr 10/02/16 22:00 10/04/16 10:37 Vancomycin (Pre-Docked) IVPB 200 mls/hr BID [facility] Administration Insulin Aspart 1 vial 10/02/16 22:00 10/04/16 17:27 Novolog Vial Sliding Scale - SQ 2 units ACHS [facility] Administration Protocol Insulin Detemir 10 units 10/02/16 22:00 10/03/16 21:12 Levemir Vial SQ 10 units HS [facility] Administration Ipratropium [place] 1 amp 10/02/16 18:00 10/04/16 17:42 Atrovent 0.02% Nebulizer - NEB 10/07/16 06:01 1 amp QIDR BUT[facility] Administration Multivitamins/Minerals/Vitamin C 1 tab 10/03/16 10:00 10/04/16 10:38 Tab-A-Vit - PO 1 tab DAILY [facility] Administration Oxycodone HCl 5 mg 10/02/16 12:41 10/03/16 20:52 Roxicodone - PO 5 mg Q4H PRN Administration PAIN Polyethylene Glycol 17 gm 10/02/16 12:45 10/04/16 10:41 Miralax (For Daily Use) - PO 17 grams DAILY [facility] Administration OBJECTIVE: Vital Signs Period Temp Pulse Resp BP Sys/Basurto Pulse Ox Last 24 Hr 97.9 F-99.1 F 93-99 16-20 108-128/66-72 98 Physical Exam: General: NAD, A&Ox3 Lungs: Right lung with decreased breath sounds. left chest with dressing, c/d/i Heart: RRR, S1S2 Abd: Soft, non-tender, non-distended. Normoactive bowel sounds Ext: Warm, well-perfused. 2+ DP/PT bilaterally Neuro: CN 2-12 intact CBCD WBC 8.7 K/mm3 (4.0-10.0) 10/04/16 06:15 RBC 3.76 M/mm3 (4.00-5.60) L 10/04/16 06:15 Hgb 10.2 GM/dL (11.7-16.9) L 10/04/16 06:15 Hct 29.6 % (35.4-49) L 10/04/16 06:15 MCV 78.8 fl (80-96) L 10/04/16 06:15 MCHC 34.5 g/dl (32.0-35.9) 10/04/16 06:15 RDW 13.7 % (11.9-15.9) 10/04/16 06:15 Plt Count 572 K/MM3 (134-434) H 10/04/16 06:15 MPV 6.4 fl (7.5-11.1) L 10/04/16 06:15 CMP Sodium 136 mmol/L (136-145) 10/04/16 06:15 Potassium 4.2 mmol/L (3.5-5.1) 10/04/16 06:15 Chloride 97 mmol/L (98-107) L 10/04/16 06:15 Carbon Dioxide 32 mmol/L (21-32) 10/04/16 06:15 Anion Gap 7 (8-16) L 10/04/16 06:15 BUN 15 mg/dL (7-18) D 10/04/16 06:15 Creatinine 0.6 mg/dL (0.7-1.3) L 10/04/16 06:15 Creat Clearance w eGFR > 60 (>60) 10/04/16 06:15 Random Glucose 98 mg/dL (74-106) 10/04/16 06:15 Calcium 8.3 mg/dL (8.5-10.1) L 10/04/16 06:15 Total Bilirubin 0.3 mg/dL (0.2-1.0) D 10/04/16 06:15 AST 29 U/L (15-37) 10/04/16 06:15 ALT 30 U/L (12-78) 10/04/16 06:15 Alkaline Phosphatase 270 U/L (45-117) H 10/04/16 06:15 Total Protein 6.8 g/dl (6.4-8.2) 10/04/16 06:15 Albumin 1.6 g/dl (3.4-5.0) L 10/04/16 06:15 Microbiology 09/28/16 12:00 Sputum - Expectorated AFB Smear Concentration - Final 09/28/16 12:00 Sputum - Expectorated Direct Acid Fast Bacilli Smear - Final 09/28/16 12:00 Sputum - Expectorated Mycobacterial Culture - Preliminary 09/27/16 11:40 Sputum - Expectorated AFB Smear Concentration - Final 09/27/16 11:40 Sputum - Expectorated Direct Acid Fast Bacilli Smear - Final 09/27/16 11:40 Sputum - Expectorated Mycobacterial Culture - Preliminary 09/30/16 09:15 Lung - Right AFB Smear Concentration - Final 09/30/16 09:15 Lung - Right Mycobacterial Culture - Preliminary 09/26/16 06:45 Blood - Peripheral Venous TB Test (QFT) ([facility]) - Final 09/30/16 09:15 Lung - Right Gram Stain - Final 09/30/16 09:15 Lung - Right Tissue Culture - Final NO GROWTH OF AEROBIC ORGANISMS AFTER 48 HOURS INCUBATION 09/30/16 09:15 Lung - Right Anaerobic Culture - Final NO ANAEROBES WERE ISOLATED 09/25/16 16:35 Blood - Peripheral Venous Blood Culture - Final NO GROWTH AFTER 5 DAYS INCUBATION 09/25/16 16:35 Blood - Peripheral Venous Blood Culture - Final NO GROWTH AFTER 5 DAYS INCUBATION 09/30/16 09:15 Lung - Right LINDA Preparation - Preliminary 09/30/16 09:15 Lung - Right Fungal Culture - Preliminary 09/26/16 12:30 Pleural Fluid Gram Stain - Final 09/26/16 12:30 Pleural Fluid Body Fluid Culture - Final Streptococcus Intermedius 09/26/16 12:30 Pleural Fluid Anaerobic Culture - Final NO ANAEROBES WERE ISOLATED 09/26/16 12:30 Pleural Fluid AFB Smear Concentration - Final 09/26/16 12:30 Pleural Fluid Mycobacterial Culture - Preliminary 09/26/16 10:47 Sputum - Expectorated AFB Smear Concentration - Final 09/26/16 10:47 Sputum - Expectorated Direct Acid Fast Bacilli Smear - Final 09/26/16 10:47 Sputum - Expectorated Mycobacterial Culture - Preliminary 09/28/16 12:00 Urine For Antigen Detection Legionella Antigen - Final 09/28/16 12:00 Urine For Antigen Detection Streptococcus pneumoniae Antigen (M - Final 09/25/16 15:15 Urine - Urine Clean Catch Urine Culture - Final 09/26/16 12:30 Pleural Fluid LINDA Preparation - Preliminary 09/26/16 12:30 Pleural Fluid Fungal Culture - Preliminary Imaging: - CT was suggestive of pericardial effusion but echo has no signs of pericardial effusion and is otherwise unremarkable Antibiotics: - Ertapenem (09/26-09/29) Assessment: This is a 61 year old male with PMHx of HLD, IDDM who presented to the ED with chills, productive cough, night sweats, constipation and dysuria. Plan: 1) Sepsis 2/2 stretococcus intermedius pneumonia - S/p Right VATS, pneumolysis, and partial decrotication on 09/30 - Chest tubes x2 removed on 10/04 - Continue Vancomycin (09/26- ) - Continue Ampicillin (09/30- ) - Quant gold negative - AFB from right lung negative - Appreciate ID consult - Appreciate pulmonary consult - Appreciate ct surgery consult 2) Heme: Acute blood loss anemia - Hgb remains stable - Continue to trend 3) Endocrine: IDDM - Increased Levemir 13u sq qhs - BGM ACHS - ISS ACHS 4) F/E/N: - Diabetic diet - Hypomagnesemia: resolved 5) Prophylaxis: - Heparin 5,000u sq bid - OOB to chair 6) Dispo: - Requires continued inpatient care CODE STATUS: FULL CODE Visit type - Emergency Visit Emergency Visit: Yes ED Registration Date: 09/25/16 Care time: The patient presented to the Emergency Department on the above date and was hospitalized for further evaluation of their emergent condition. - New Patient This patient is new to ri today: No - Critical Care Critical Care patient: No
[2016-10-05] MEDS: INSULIN DETEMIR 100 UNITS/ML MDV SQ SCH (22:02)
[2016-10-06] MEDS: IPRATROPIUM BR 0.02% 0.5 MG/2.5 ML VIAL.NEB. NEB SCH ×5 (00:10→23:11)
[2016-10-06] MEDS ORDERED: PT OWN MED DRAWER 7, Y5N ONE ×2 (02:03→08:16)
[2016-10-06] MEDS: AMPICILLIN - 2 GM in SODIUM CHLORIDE 100 ML IVPB SCH ×4 (02:05→20:39)
[2016-10-06] MEDS: INSULIN SLIDING SCALE (NOVOLOG) 1 VIAL SQ SCH ×4 (06:40→21:33)
[2016-10-06 08:25] LABS: BASOPHIL 0.6 % (0-2.0); EOSINOPHIL 2.3 % (0-4.5); MCH 26.7 pg (25.7-33.7); MCHC 34.1 g/dl (32.0-35.9); MEAN CELL VOLUME 78.4 fl (80-96); MEAN PLT VOLUME 6.8 fl (7.5-11.1); NEUTROPHILS 75.1 % (42.8-82.8); PLATELET COUNT 533 K/MM3 (134-434); RDW 13.9 % (11.9-15.9); WHITE BLOOD COUNT 10.4 K/mm3 (4.0-10.0)
[2016-10-06 08:40] LABS: ALBUMIN 1.7 g/dl (3.4-5.0); ALK PHOS 280 U/L (45-117); ANION GAP 8 (8-16); BILIRUBIN,TOTAL 0.3 mg/dL (0.2-1.0); CALCIUM 8.3 mg/dL (8.5-10.1); CO2 30 mmol/L (21-32); CREATININE 0.6 mg/dL (0.7-1.3); GLUCOSE,RANDOM 67 mg/dL (74-106); SGOT/AST 31 U/L (15-37); SGPT/ALT 30 U/L (12-78); TOT PROT 7.1 g/dl (6.4-8.2)
[2016-10-06] MEDS: VANCOMYCIN 1 GRAM (PRE-DOCKED) 250 ML IVPB SCH ×2 (11:29→21:25)
[2016-10-06] MEDS: DOCUSATE SODIUM 100 MG CAPSULE (FP) PO SCH ×2 (11:29→21:26)
[2016-10-06] MEDS: POLYETHYLENE GLYCOL 3350 119 GM BTL PO SCH (11:29)
[2016-10-06] MEDS: MULTIVITAMINS (DAILY MVI) TABLET (FP) PO SCH (11:30)
--- NOTE | 2016-10-06 11:55 | PN ---
Progress Note (short form) - Note Progress Note: SUBJECTIVE: The patient was seen and examined at the bedside, no complaints at this time Current Medications Generic Name Dose Route Start Last Admin Trade Name Musaq PRN Reason Stop Dose Admin Acetaminophen 650 mg 10/02/16 16:50 10/03/16 20:57 Tylenol - PO 650 mg Q4H PRN Administration FEVER OR PAIN Docusate Sodium 100 mg 10/02/16 12:45 10/06/16 11:29 Colace - PO 100 mg BID [facility] Administration Hydromorphone HCl 1 mg 10/02/16 16:50 10/02/16 21:16 Dilaudid Injection - IVPB 1 mg Q3H PRN Administration PAIN Ampicillin Sodium 2 gm/ Sodium 100 mls @ 200 mls/hr 10/02/16 21:00 10/06/16 08: 44 Chloride IVPB 200 mls/hr Q6H-IV [facility] Administration Vancomycin HCl 250 mls @ 200 mls/hr 10/02/16 22:00 10/06/16 11:29 Vancomycin (Pre-Docked) IVPB 200 mls/hr BID [facility] Administration Insulin Aspart 1 vial 10/02/16 22:00 10/06/16 06:40 Novolog Vial Sliding Scale - SQ Not Given ACHS [facility] Protocol Insulin Detemir 13 units 10/05/16 22:00 10/05/16 22:02 Levemir Vial SQ 13 units HS [facility] Administration Ipratropium [place] 1 amp 10/02/16 18:00 10/06/16 11:59 Atrovent 0.02% Nebulizer - NEB 10/07/16 06:01 1 amp QIDR [facility] Administration Multivitamins/Minerals/Vitamin C 1 tab 10/03/16 10:00 10/06/16 11:30 Tab-A-Vit - PO 1 tab DAILY [facility] Administration Polyethylene Glycol 17 gm 10/02/16 12:45 10/06/16 11:29 Miralax (For Daily Use) - PO 17 grams DAILY [facility] Administration OBJECTIVE: Vital Signs Period Temp Pulse Resp BP Sys/Basurto Pulse Ox Last 24 Hr 97.8 F-99.4 F 82-100 18-20 110-123/55-71 96 Physical Exam: General: NAD, A&Ox3 Lungs: Right lung CTA. left lung with decreased breath sounds. left chest with dressing, c/d/i Heart: RRR, S1S2 Abd: Soft, non-tender, non-distended. Normoactive bowel sounds Ext: Warm, well-perfused. 2+ DP/PT bilaterally Neuro: CN 2-12 intact CBCD WBC 10.4 K/mm3 (4.0-10.0) H 10/06/16 06:30 RBC 3.76 M/mm3 (4.00-5.60) L 10/06/16 06:30 Hgb 10.0 GM/dL (11.7-16.9) L 10/06/16 06:30 Hct 29.5 % (35.4-49) L 10/06/16 06:30 MCV 78.4 fl (80-96) L 10/06/16 06:30 MCHC 34.1 g/dl (32.0-35.9) 10/06/16 06:30 RDW 13.9 % (11.9-15.9) 10/06/16 06:30 Plt Count 533 K/MM3 (134-434) H 10/06/16 06:30 MPV 6.8 fl (7.5-11.1) L 10/06/16 06:30 CMP Sodium 136 mmol/L (136-145) 10/06/16 06:30 Potassium 4.2 mmol/L (3.5-5.1) 10/06/16 06:30 Chloride 98 mmol/L (98-107) 10/06/16 06:30 Carbon Dioxide 30 mmol/L (21-32) 10/06/16 06:30 Anion Gap 8 (8-16) 10/06/16 06:30 BUN 14 mg/dL (7-18) 10/06/16 06:30 Creatinine 0.6 mg/dL (0.7-1.3) L 10/06/16 06:30 Creat Clearance w eGFR > 60 (>60) 10/06/16 06:30 Random Glucose 67 mg/dL (74-106) L 10/06/16 06:30 Calcium 8.3 mg/dL (8.5-10.1) L 10/06/16 06:30 Total Bilirubin 0.3 mg/dL (0.2-1.0) D 10/06/16 06:30 AST 31 U/L (15-37) 10/06/16 06:30 ALT 30 U/L (12-78) 10/06/16 06:30 Alkaline Phosphatase 280 U/L (45-117) H 10/06/16 06:30 Total Protein 7.1 g/dl (6.4-8.2) 10/06/16 06:30 Albumin 1.7 g/dl (3.4-5.0) L 10/06/16 06:30 Microbiology 09/28/16 12:00 Sputum - Expectorated AFB Smear Concentration - Final 09/28/16 12:00 Sputum - Expectorated Direct Acid Fast Bacilli Smear - Final 09/28/16 12:00 Sputum - Expectorated Mycobacterial Culture - Preliminary 09/27/16 11:40 Sputum - Expectorated AFB Smear Concentration - Final 09/27/16 11:40 Sputum - Expectorated Direct Acid Fast Bacilli Smear - Final 09/27/16 11:40 Sputum - Expectorated Mycobacterial Culture - Preliminary 09/30/16 09:15 Lung - Right AFB Smear Concentration - Final 09/30/16 09:15 Lung - Right Mycobacterial Culture - Preliminary 09/26/16 06:45 Blood - Peripheral Venous TB Test (QFT) ([facility]) - Final 09/30/16 09:15 Lung - Right Gram Stain - Final 09/30/16 09:15 Lung - Right Tissue Culture - Final NO GROWTH OF AEROBIC ORGANISMS AFTER 48 HOURS INCUBATION 09/30/16 09:15 Lung - Right Anaerobic Culture - Final NO ANAEROBES WERE ISOLATED 09/25/16 16:35 Blood - Peripheral Venous Blood Culture - Final NO GROWTH AFTER 5 DAYS INCUBATION 09/25/16 16:35 Blood - Peripheral Venous Blood Culture - Final NO GROWTH AFTER 5 DAYS INCUBATION 09/30/16 09:15 Lung - Right LINDA Preparation - Preliminary 09/30/16 09:15 Lung - Right Fungal Culture - Preliminary 09/26/16 12:30 Pleural Fluid Gram Stain - Final 09/26/16 12:30 Pleural Fluid Body Fluid Culture - Final Streptococcus Intermedius 09/26/16 12:30 Pleural Fluid Anaerobic Culture - Final NO ANAEROBES WERE ISOLATED 09/26/16 12:30 Pleural Fluid AFB Smear Concentration - Final 09/26/16 12:30 Pleural Fluid Mycobacterial Culture - Preliminary 09/26/16 10:47 Sputum - Expectorated AFB Smear Concentration - Final 09/26/16 10:47 Sputum - Expectorated Direct Acid Fast Bacilli Smear - Final 09/26/16 10:47 Sputum - Expectorated Mycobacterial Culture - Preliminary 09/28/16 12:00 Urine For Antigen Detection Legionella Antigen - Final 09/28/16 12:00 Urine For Antigen Detection Streptococcus pneumoniae Antigen (M - Final 09/25/16 15:15 Urine - Urine Clean Catch Urine Culture - Final 09/26/16 12:30 Pleural Fluid LINDA Preparation - Preliminary 09/26/16 12:30 Pleural Fluid Fungal Culture - Preliminary Imaging: - CT was suggestive of pericardial effusion but echo has no signs of pericardial effusion and is otherwise unremarkable Antibiotics: - Ertapenem (09/26-09/29) Assessment: This is a 61 year old male with PMHx of HLD, IDDM who presented to the ED with chills, productive cough, night sweats, constipation and dysuria. Plan: 1) Sepsis 2/2 stretococcus intermedius pneumonia - S/p Right VATS, pneumolysis, and partial decrotication on 09/30 - Chest tubes x2 removed on 10/04 - Continue Vancomycin (09/26- ) - Continue Ampicillin (09/30- ) - Quant gold negative - AFB from right lung negative - Appreciate ID consult - Appreciate pulmonary consult - Appreciate ct surgery consult 2) Heme: Acute blood loss anemia - Hgb remains stable - Continue to trend 3) Endocrine: IDDM - Continue Levemir 13u sq qhs - BGM ACHS - ISS ACHS 4) F/E/N: - Diabetic diet - Monitor electrolytes 5) Prophylaxis: - Heparin 5,000u sq bid - OOB to chair 6) Dispo: - Requires continued inpatient care CODE STATUS: FULL CODE Visit type - Emergency Visit Emergency Visit: Yes ED Registration Date: 09/25/16 Care time: The patient presented to the Emergency Department on the above date and was hospitalized for further evaluation of their emergent condition. - New Patient This patient is new to me today: No - Critical Care Critical Care patient: No
[2016-10-06] MEDS: INSULIN DETEMIR 100 UNITS/ML MDV SQ SCH (21:33)
[2016-10-07] MEDS: AMPICILLIN - 2 GM in SODIUM CHLORIDE 100 ML IVPB SCH ×4 (02:30→21:19)
[2016-10-07] MEDS: INSULIN SLIDING SCALE (NOVOLOG) 1 VIAL SQ SCH ×4 (06:31→22:21)
[2016-10-07] MEDS: IPRATROPIUM BR 0.02% 0.5 MG/2.5 ML VIAL.NEB. NEB SCH (06:56)
[2016-10-07] MEDS ORDERED: INSULIN (NOVOLOG) ASPART 100 UNITS/ML 10ML VIAL ONE (07:00)
[2016-10-07] MEDS: POLYETHYLENE GLYCOL 3350 119 GM BTL PO SCH (09:36)
[2016-10-07] MEDS ORDERED: PT OWN MED DRAWER 7, Y5N ONE ×2 (09:38→15:34)
[2016-10-07] MEDS: ACETAMINOPHEN 325 MG TABLET (FP) PO PRN (09:39)
[2016-10-07] MEDS: MULTIVITAMINS (DAILY MVI) TABLET (FP) PO SCH (09:39)
[2016-10-07] MEDS: DOCUSATE SODIUM 100 MG CAPSULE (FP) PO SCH ×2 (09:39→22:20)
--- NOTE | 2016-10-07 10:36 | PN ---
Physical Exam: SUBJECTIVE: Patient seen and examined. States his breathing is improving. He is able to tolerate walking out into the hallway and denies any shortness of breath. OBJECTIVE: Patient is s/p Bronchoscopy, right VATS with chest tube removal on 10/04/2016 +crackles of right lung base, diminished right lung Will order respiratory pre and post Vital Signs Period Temp Pulse Resp BP Sys/Basurto Pulse Ox Last 24 Hr 98.6 F-99.7 F 89-90 20-20 105-112/62-65 96 GENERAL: The patient is awake, alert, and fully oriented, in no acute distress - su[place]ese speaking. HEAD: Normal with no signs of trauma. EYES: PERRL, extraocular movements intact, sclera anicteric, conjunctiva clear. No ptosis. ENT: Ears normal, nares patent, oropharynx clear without exudates, moist mucous membranes. NECK: Trachea midline, full range of motion, supple. LUNGS: right anterior lung sound diminished with crackles at right lung base, dressing of right lung c/d/i., left lung clear HEART: Regular rate and rhythm ABDOMEN: Soft, nontender, nondistended, normoactive bowel sounds, no guarding, norebound, no hepatosplenomegaly, no masses. EXTREMITIES: 2+ pulses, warm, well-perfused, no edema. NEUROLOGICAL: Normal speech, gait not observed. PSYCH: Normal mood, normal affect. SKIN: Warm, dry, normal turgor, no rashes or lesions noted Laboratory Results - last 24 hr 10/06/16 10/06/16 10/06/16 11:52 16:39 21:27 POC Glucometer 257 280 476 Random Glucose 10/06/16 10/07/16 10/07/16 21:45 02:41 06:30 POC Glucometer 163 79 Random Glucose 180 H D Active Medications Generic Name Dose Route Start Last Admin Trade Name Freq PRN Reason Stop Dose Admin Acetaminophen 650 mg 10/02/16 16:50 10/07/16 09:39 Tylenol - PO 650 mg Q4H PRN Administration FEVER OR PAIN Docusate Sodium 100 mg 10/02/16 12:45 10/07/16 09:39 Colace - PO 100 mg BID BUT[facility] Administration Ampicillin Sodium 2 gm/ Sodium 100 mls @ 200 mls/hr 10/02/16 21:00 10/07/16 09: 39 Chloride IVPB 200 mls/hr Q6H-IV [facility] Administration Vancomycin HCl 250 mls @ 200 mls/hr 10/02/16 22:00 10/06/16 21:25 Vancomycin (Pre-Docked) IVPB 200 mls/hr BID [facility] Administration Insulin Aspart 1 vial 10/02/16 22:00 10/07/16 06:31 Novolog Vial Sliding Scale - SQ Not Given ACHS [facility] Protocol Insulin Detemir 13 units 10/05/16 22:00 10/06/16 21:33 Levemir Vial SQ 13 units HS BUT[facility] Administration Multivitamins/Minerals/Vitamin C 1 tab 10/03/16 10:00 10/07/16 09:39 Tab-A-Vit - PO 1 tab DAILY [facility] Administration Polyethylene Glycol 17 gm 10/02/16 12:45 10/07/16 09:36 Miralax (For Daily Use) - PO 17 grams DAILY [facility] Administration ASSESSMENT/PLAN: This is a 61 year old male with a past medical history of IDDM and HLD who presented to the ED with c/o chills, productive cough x 3 weeks, night sweats, constipation x 4 days, dysuria x 4 days, weight loss, hyperglycemia and was found to have an empyema. He had two right chest tubes inserted on 09/30/2016. He is s/p bronchoscopy, right VATS with chest tubes removed on 10/04/2016 ID: Sepsis - Pnemonia/empyema Assessment/Plan: Patient is s/p Bronchoscopy, right VATS with chest tubes removed on 10/04/2016 ID following, on IV Vancomycin BID started 09/26/2016 On Ampicillin since 09/30 Pulmonary consulted and following Chest xray tomorrow to follow up Oral pain control with oxycodone 5mg prn ID following Hematology: Anemia - acute Assessment/Plan: hmg/hct: Endocrine: Diabetes mellitus Assessment/Plan: Monitor BGMs On Levemir 13 units hs, on sliding scale F.E.N. Fluids: NS @50cc x 1 bag for hyponatremia Electrolytes: monitor Nutrition: diabetic diet Prophylaxis GI: deferred DVT: SCDs bilaterally Disposition: Requires inpatient hospitalization. Full Code. Visit type - Emergency Visit Emergency Visit: Yes ED Registration Date: 09/25/16 Care time: The patient presented to the Emergency Department on the above date and was hospitalized for further evaluation of their emergent condition. - New Patient This patient is new to me today: Yes Date on this admission: 10/07/16 - Critical Care Critical Care patient: No - Discharge Referral Referred to [facility] Med [facility] No
[2016-10-07] MEDS: VANCOMYCIN 1 GRAM (PRE-DOCKED) 250 ML IVPB SCH ×2 (10:53→22:23)
[2016-10-07 12:25] LABS: BASOPHIL 0.3 % (0-2.0); EOSINOPHIL 2.1 % (0-4.5); MCHC 32.8 g/dl (32.0-35.9); MEAN CELL VOLUME 79.3 fl (80-96); MEAN PLT VOLUME 6.8 fl (7.5-11.1); PLATELET COUNT 558 K/MM3 (134-434); RDW 13.7 % (11.9-15.9); WHITE BLOOD COUNT 11.2 K/mm3 (4.0-10.0)
[2016-10-07 12:44] LABS: ALBUMIN 1.8 g/dl (3.4-5.0); ANION GAP 7 (8-16); CALCIUM 8.4 mg/dL (8.5-10.1); CO2 31 mmol/L (21-32); GLUCOSE,RANDOM 198 mg/dL (74-106); SGPT/ALT 34 U/L (12-78)
[2016-10-07 12:47] LABS: ALK PHOS 309 U/L (45-117); BILIRUBIN,TOTAL 0.4 mg/dL (0.2-1.0); CREATININE 0.7 mg/dL (0.7-1.3); SGOT/AST 44 U/L (15-37); TOT PROT 7.6 g/dl (6.4-8.2)
[2016-10-07] MEDS ORDERED: SODIUM CHLORIDE 1,000 ML IV SCH (17:00)
[2016-10-07] MEDS: HEPARIN NA (PORCINE) 5,000 UNITS/ML 1ML VIAL SQ SCH (22:20)
[2016-10-07] MEDS: INSULIN DETEMIR 100 UNITS/ML MDV SQ SCH (22:21)
[2016-10-08] MEDS: AMPICILLIN - 2 GM in SODIUM CHLORIDE 100 ML IVPB SCH ×2 (02:09→08:39)
[2016-10-08] MEDS: INSULIN SLIDING SCALE (NOVOLOG) 1 VIAL SQ SCH ×3 (05:59→17:56)
[2016-10-08 06:55] LABS: BASOPHIL 0.6 % (0-2.0); EOSINOPHIL 2.4 % (0-4.5); MCH 26.4 pg (25.7-33.7); MCHC 33.6 g/dl (32.0-35.9); MEAN CELL VOLUME 78.6 fl (80-96); MEAN PLT VOLUME 6.7 fl (7.5-11.1); PLATELET COUNT 531 K/MM3 (134-434); RDW 13.9 % (11.9-15.9); WHITE BLOOD COUNT 9.6 K/mm3 (4.0-10.0)
[2016-10-08 07:21] LABS: ALBUMIN 1.7 g/dl (3.4-5.0); ALK PHOS 267 U/L (45-117); ANION GAP 8 (8-16); BILIRUBIN,TOTAL 1.1 mg/dL (0.2-1.0); CALCIUM 8.2 mg/dL (8.5-10.1); CO2 28 mmol/L (21-32); CREATININE 0.6 mg/dL (0.7-1.3); GLUCOSE,RANDOM 78 mg/dL (74-106); SGOT/AST 28 U/L (15-37); SGPT/ALT 29 U/L (12-78); TOT PROT 7.1 g/dl (6.4-8.2)
[2016-10-08] MEDS ORDERED: PT OWN MED DRAWER 7, Y5N ONE (09:58)
[2016-10-08] MEDS: POLYETHYLENE GLYCOL 3350 119 GM BTL PO SCH (10:03)
[2016-10-08] MEDS: HEPARIN NA (PORCINE) 5,000 UNITS/ML 1ML VIAL SQ SCH (10:03)
[2016-10-08] MEDS: VANCOMYCIN 1 GRAM (PRE-DOCKED) 250 ML IVPB SCH (10:03)
[2016-10-08] MEDS: DOCUSATE SODIUM 100 MG CAPSULE (FP) PO SCH (10:03)
[2016-10-08] MEDS: MULTIVITAMINS (DAILY MVI) TABLET (FP) PO SCH (10:03)
[2016-10-08] MEDS: ACETAMINOPHEN 325 MG TABLET (FP) PO PRN (10:05)
[2016-10-08] MEDS ORDERED: INSULIN (NOVOLOG) ASPART 100 UNITS/ML 10ML VIAL ONE (12:28)
--- NOTE | 2016-10-08 13:42 | PN ---
Progress Note, Physician History of Present Illness: OOB in chair Occasional R chest pain with cough No c/o dyspnea No F/C - Current Medication List Current Medications: Active Medications Acetaminophen (Tylenol -) 650 mg PO Q4H PRN PRN Reason: FEVER OR PAIN Last Admin: 10/08/16 10:05 Dose: 650 mg Docusate Sodium (Colace -) 100 mg PO BID [facility] Last Admin: 10/08/16 10:03 Dose: Not Given Heparin Sodium (Porcine) (Heparin -) 5,000 unit SQ BID [facility] Last Admin: 10/08/16 10:03 Dose: 5,000 unit Ampicillin Sodium 2 gm/ Sodium (Chloride) 100 mls @ 200 mls/hr IVPB Q6H-IV [facility] Last Admin: 10/08/16 08:39 Dose: 200 mls/hr Vancomycin HCl (Vancomycin (Pre-Docked)) 250 mls @ 200 mls/hr IVPB BID [facility] Last Admin: 10/08/16 10:03 Dose: 200 mls/hr Sodium Chloride (Normal Saline -) 1,000 mls @ 50 mls/hr IV ASDIR [facility] Stop: 10/08/16 16:51 Last Admin: 10/07/16 17:04 Dose: 50 mls/hr Insulin Aspart (Novolog Vial Sliding Scale -) 1 vial SQ ACHS [facility] PRN Reason: Protocol Last Admin: 10/08/16 12:33 Dose: 6 units Insulin Detemir (Levemir Vial) 13 units SQ HS [facility] Last Admin: 10/07/16 22:21 Dose: 13 units Multivitamins/Minerals/Vitamin C (Tab-A-Vit -) 1 tab PO DAILY [facility] Last Admin: 10/08/16 10:03 Dose: 1 tab Polyethylene Glycol (Miralax (For Daily Use) -) 17 gm PO DAILY [facility] Last Admin: 10/08/16 10:03 Dose: Not Given - Objective Vital Signs: Vital Signs Temperature 98.8 F 10/08/16 06:00 Pulse Rate 83 10/08/16 06:00 Respiratory Rate 18 10/08/16 06:00 Blood Pressure 114/66 10/08/16 06:00 O2 Sat by Pulse Oximetry (%) 97 10/07/16 21:00 Constitutional: Yes: No Distress Eyes: Yes: Conjunctiva Clear Cardiovascular: Yes: Regular Rate and Rhythm, S1, S2 Respiratory: Yes: Diminished, Other (decreased BS R) Gastrointestinal: Yes: Normal Bowel Sounds, Soft. No: Tenderness Edema: No Labs: CBC, BMP 10/08/16 06:15 10/08/16 06:15 INR, PTT INR 1.22 (0.82-1.09) H 09/30/16 06:00 Assessment/Plan Post op day # 8 Bronch, R VATS, partial decortication Empyema, strep anginosis Substitute amoxicillin po 500mg q8h x 7d No objection to discharge
[2016-10-08] MEDS ORDERED: AMOXICILLIN 500 MG CAPSULE (FP) PO SCH (14:00)
[2016-10-08 15:01] VITALS: BP 100/53; PULSE 79; TEMP 97.9
--- NOTE | 2016-10-08 15:04 | DS ---
Physical Exam: SUBJECTIVE: Patient seen and examined at the bedside. Denies shortness of breath. has intermittent right sided chest discomfort at the site of old chest tube. States Tylenol helps relieve his pain. OBJECTIVE: Patient is s/p Bronchoscopy, right VATS with chest tube removal on 10/04/2016 +crackles of right lung base, diminished right lung Respiratory pre and post complete, patient stable on resting and flat surface walking, not a candidate for home oxygen Will continue Amoxicillin for 7 more days, will need new PCP referral. Vital Signs Period Temp Pulse Resp BP Sys/Ruiz Pulse Ox Last 24 Hr 97.9 F-99.2 F 75-83 16-20 100-114/53-66 97-97 PHYSICAL EXAM GENERAL: The patient is awake, alert, and fully oriented, in no acute distress - irish speaking. HEAD: Normal with no signs of trauma. EYES: PERRL, extraocular movements intact, sclera anicteric, conjunctiva clear. No ptosis. ENT: Ears normal, nares patent, oropharynx clear without exudates, moist mucous membranes. NECK: Trachea midline, full range of motion, supple. LUNGS: right anterior lung sound diminished with crackles at right lung base, dressing of right lung c/d/i., left lung clear HEART: Regular rate and rhythm ABDOMEN: Soft, nontender, nondistended, normoactive bowel sounds, no guarding, norebound, no hepatosplenomegaly, no masses. EXTREMITIES: 2+ pulses, warm, well-perfused, no edema. NEUROLOGICAL: Normal speech, gait not observed. PSYCH: Normal mood, normal affect. SKIN: Warm, dry, normal turgor, no rashes or lesions noted LABS Laboratory Results - last 24 hr 10/07/16 10/07/16 10/08/16 17:00 22:18 05:58 WBC RBC Hgb Hct MCV MCHC RDW Plt Count MPV Neutrophils % Lymphocytes % Monocytes % Eosinophils % Basophils % Sodium Potassium Chloride Carbon Dioxide Anion Gap BUN Creatinine Creat Clearance w eGFR POC Glucometer 200 190 169 Random Glucose Calcium Total Bilirubin AST ALT Alkaline Phosphatase Total Protein Albumin 10/08/16 10/08/16 10/08/16 06:15 06:15 12:13 WBC 9.6 RBC 3.68 L Hgb 9.7 L Hct 28.9 L MCV 78.6 L MCHC 33.6 RDW 13.9 Plt Count 531 H MPV 6.7 L Neutrophils % 70.0 Lymphocytes % 19.2 Monocytes % 7.8 Eosinophils % 2.4 Basophils % 0.6 Sodium 136 Potassium 4.1 Chloride 100 Carbon Dioxide 28 Anion Gap 8 BUN 13 D Creatinine 0.6 L Creat Clearance w eGFR > 60 POC Glucometer 299 Random Glucose 78 D Calcium 8.2 L Total Bilirubin 1.1 H D AST 28 D ALT 29 Alkaline Phosphatase 267 H Total Protein 7.1 Albumin 1.7 L HOSPITAL COURSE: Date of Admission:09/25/16 Date of Discharge: 10/08/16 This is a 61 year old male with a past medical history of IDDM and HLD who presented to the ED with c/o chills, productive cough x 3 weeks, night sweats, constipation x 4 days, dysuria x 4 days, weight loss, hyperglycemia and was found to have an empyema. He had two right chest tubes inserted on 09/30/2016. He is s/p bronchoscopy, right VATS with chest tubes removed on 10/04/2016 ID: Sepsis - Pnemonia/empyema - resolved Assessment/Plan: Patient is s/p Bronchoscopy, right VATS with chest tubes removed on 10/04/2016 ID following, discharge on Amoxicillin 500mg q8 x 7 more days Chest xray without any significant changes Tylenol prn for pain Hematology: Anemia - stable Assessment/Plan: hmg/hct: within normal limits Repeat CBC as outpatient, referral to new PCP Endocrine: Diabetes mellitus - chronic Assessment/Plan: Monitor BGMs On sliding scale @ home, sliding scale dosage provided on d/c instructions Patient has insulin @ home Disposition: Will need to follow up with new PCP upon discharge for repeat blood work and glucose monitoring. Full Code. Minutes to complete discharge: 60 Discharge Summary Reason For Visit: COMMUNITY ACQUIRED PNEUMONIA Current Active Problems CAP (community acquired pneumonia) (Acute) Diabetes (Acute) Empyema (Acute) Pleural effusion (Acute) Pneumonia (Acute) Condition: Improved - Instructions Diet, Activity, Other Instructions: Senor Dominquez: Por favor de bret al Doctor Wandermacpastora en oli semana, por favor de hacer oli serenity con el. Sigue con la insulina que usted kamran en la casa. Nueva medicina: Amoxicillin 500mg gwendolyn veces por el jamia para 7 ruiz mas. La insulina de Novolog: Por favor de chequear el azucar en la rosa m antes de comer: Primer limpie la piel con oli asa con alcohol, deje que el alcohol se seque al aire. Azucar de rosa m es 151 - 200 tome 2 units Azucar de rosa m es 201 - 250 tome 4 units Azucar de rosa m es 251 - 300 tome 6 units Azucar de rosa m es 301 - 350 tome 8 units Azucar de rosa m es 351 - 400 tome 10 units Por favor de mantener un registro angela las azucasr en la rosa m para campbell doctor. Referrals: Jose Antonio Benton MD [Staff Physician] - Disposition: HOME - Home Medications Comprehensive Discharge Medication List: Ambulatory Orders Insulin Sliding Scale [Novolog Vial Sliding Scale -] 0 units SQ PRN 07/03/14 Amoxicillin - [Amoxicillin 500mg Capsule -] 500 mg PO TID #21 tab 10/08/16 This patient is new to me today: Yes Date on this admission: 10/08/16 Emergency Visit: Yes ED Registration Date: 09/25/16 Care time: The patient presented to the Emergency Department on the above date and was hospitalized for further evaluation of their emergent condition. Critical Care patient: No - Discharge Referral Referred to [facility] No
--- NOTE | 2016-10-08 16:14 | PN ---
Progress Note (short form) - Note Progress Note: Feels overall better. Minimal discomfort at the incision site. Minimal dry cough. Afebrile. Intake & Output 10/05/16 10/06/16 10/07/16 10/08/16 23:59 23:59 23:59 23:59 Intake Total 1590 1560 480 900 Output Total 1200 0 700 2700 Balance 390 1560 -220 -1800 Weight 123 lb 120 lb 4 oz 128 lb 9.6 oz Last Vital Signs Temp Pulse Resp BP Pulse Ox 97.9 F 79 16 100/53 97 10/08/16 14:57 10/08/16 14:57 10/08/16 14:57 10/08/16 14:57 10/08/16 09:00 Active Medications Acetaminophen (Tylenol -) 650 mg PO Q4H PRN PRN Reason: FEVER OR PAIN Last Admin: 10/08/16 10:05 Dose: 650 mg Amoxicillin (Amoxicillin -) 500 mg PO TID [facility] Last Admin: 10/08/16 15:00 Dose: 500 mg Docusate Sodium (Colace -) 100 mg PO BID [facility] Last Admin: 10/08/16 10:03 Dose: Not Given Heparin Sodium (Porcine) (Heparin -) 5,000 unit SQ BID [facility] Last Admin: 10/08/16 10:03 Dose: 5,000 unit Sodium Chloride (Normal Saline -) 1,000 mls @ 50 mls/hr IV ASDIR [facility] Stop: 10/08/16 16:51 Last Admin: 10/07/16 17:04 Dose: 50 mls/hr Insulin Aspart (Novolog Vial Sliding Scale -) 1 vial SQ ACHS [facility] PRN Reason: Protocol Last Admin: 10/08/16 12:33 Dose: 6 units Insulin Detemir (Levemir Vial) 13 units SQ HS [facility] Last Admin: 10/07/16 22:21 Dose: 13 units Multivitamins/Minerals/Vitamin C (Tab-A-Vit -) 1 tab PO DAILY [facility] Last Admin: 10/08/16 10:03 Dose: 1 tab Polyethylene Glycol (Miralax (For Daily Use) -) 17 gm PO DAILY [facility] Last Admin: 10/08/16 10:03 Dose: Not Given Gen: NAD at rest Heart: RRR Lung: Clear Abd: soft, nontender Ext: no edema Laboratory Results - last 24 hr 10/07/16 10/07/16 10/08/16 17:00 22:18 05:58 WBC RBC Hgb Hct MCV MCHC RDW Plt Count MPV Neutrophils % Lymphocytes % Monocytes % Eosinophils % Basophils % Sodium Potassium Chloride Carbon Dioxide Anion Gap BUN Creatinine Creat Clearance w eGFR POC Glucometer 200 190 169 Random Glucose Calcium Total Bilirubin AST ALT Alkaline Phosphatase Total Protein Albumin 10/08/16 10/08/16 10/08/16 06:15 06:15 12:13 WBC 9.6 RBC 3.68 L Hgb 9.7 L Hct 28.9 L MCV 78.6 L MCHC 33.6 RDW 13.9 Plt Count 531 H MPV 6.7 L Neutrophils % 70.0 Lymphocytes % 19.2 Monocytes % 7.8 Eosinophils % 2.4 Basophils % 0.6 Sodium 136 Potassium 4.1 Chloride 100 Carbon Dioxide 28 Anion Gap 8 BUN 13 D Creatinine 0.6 L Creat Clearance w eGFR > 60 POC Glucometer 299 Random Glucose 78 D Calcium 8.2 L Total Bilirubin 1.1 H D AST 28 D ALT 29 Alkaline Phosphatase 267 H Total Protein 7.1 Albumin 1.7 L Problem List - Problems (1) Pneumonia Code(s): J18.9 - PNEUMONIA, UNSPECIFIED ORGANISM (2) Pleural effusion Code(s): J90 - PLEURAL EFFUSION, NOT ELSEWHERE CLASSIFIED (3) Diabetes Code(s): E11.9 - TYPE 2 DIABETES MELLITUS WITHOUT COMPLICATIONS ASSESSMENT AND PLAN: Pneumonia Empyema s/p R VATS/partial decortication DM - Agree with PO ABX per ID - No smoking - No Pulmonary contraindication for D/C home Dr Garland
== END 2016-10-08 18:45 | disposition home or self-care (01) | DRG 710 ==
LOC: EDBD → JER 13:23 → JERBED 18:37 → J8W 21:52 → JSAMEDAYSX 09-30 13:11 → JICU 09-30 14:53 → J8W 10-03 15:03
PROVIDERS: ADMIT Internal Medicine; ATTEND Nurse Practitioner Family
PROC: 0W9930Z Drainage of Right Pleural Cavity with Drainage Device, Percutaneous Approach (ICD-10-PCS; principal; 2016-09-26)
PROC: 0W9940Z Drainage of Right Pleural Cavity with Drainage Device, Percutaneous Endoscopic Approach (ICD-10-PCS; 2016-09-30)
PROC: 0BJ08ZZ Inspection of Tracheobronchial Tree, Via Natural or Artificial Opening Endoscopic (ICD-10-PCS; 2016-09-30)
PROC: 0BND4ZZ Release Right Middle Lung Lobe, Percutaneous Endoscopic Approach (ICD-10-PCS; 2016-09-30)
PROC: 0BNF4ZZ Release Right Lower Lung Lobe, Percutaneous Endoscopic Approach (ICD-10-PCS; 2016-09-30)
PROC: 0BDN4ZZ Extraction of Right Pleura, Percutaneous Endoscopic Approach (ICD-10-PCS; 2016-09-30 07:30)
PROC: 0BPQ00Z Removal of Drainage Device from Pleura, Open Approach (ICD-10-PCS; 2016-10-04)
PROC: 0BPQ00Z Removal of Drainage Device from Pleura, Open Approach (ICD-10-PCS; 2016-10-04)
DX: A41.9 Sepsis, unspecified organism (principal); E78.5 Hyperlipidemia, unspecified; F17.210 Nicotine dependence, cigarettes, uncomplicated; R30.0 Dysuria; E11.65 Type 2 diabetes mellitus with hyperglycemia; R63.4 Abnormal weight loss; Z68.22 Body mass index [BMI] 22.0-22.9, adult; J90 Pleural effusion, not elsewhere classified; J86.9 Pyothorax without fistula; J13 Pneumonia due to Streptococcus pneumoniae; D62 Acute posthemorrhagic anemia; D72.828 Other elevated white blood cell count; E83.42 Hypomagnesemia; E87.1 Hypo-osmolality and hyponatremia
CPT/HCPCS: 32557; 36415; 71010-TC; 71250-TC; 71260-TC; 74170-TC; 80048; 80053; 80061; 80076; 81003; 81015; 82009; 82042; 82150; 82438; 82945; 82947; 83036; 83605; 83615; 83721; 83735; 84157; 84311; 84478; 85025; 85027; 85610; 85651; 86140; 86480; 86850; 86900; 86901; 87040; 87070; 87075; 87077; 87086; 87102; 87116; 87205; 87206; 87210; 87385; 87389; 87899; 88108; 88305-TC; 89051; 93306-TC; 94010; 94640; 94760; 94761; 97116-GP; 97161-GP; 99285-25; C1729; G0480; J1644; Q9967